=== PATIENT | female | born 2000 | race Caucasian/White ===

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

== ENCOUNTER 2023-09-21 09:10 | Outpatient (POV) | payer OTHER, BC, SELFPAY ==
--- NOTE | 2023-09-21 09:23 | A.OFFVIS_ITS ---
HPI Data of Consult Patient: new to practice Consult date: 09/21/23 Requesting Physician: Trini Vasquez APRN Primary Care Provider: Joey Lora MD Consult Narrative Reason for consult: Buttocks pain, tailbone pain History of present illness: Ms. Mandujano is a 23 year old female who is a new patient. She is a referral from Dr. Lora's office. Today she rates her pain an 8 out of 10. Patient states her pain is a constant uncomfortable sensation with occasional sharp shooting pains in and around her buttocks and tailbone area. Patient states this been going on since 2020 where she had a tubing accident in the snow. Patient states that she came down a hill and hit on her tailbone. Patient states that it hurt but did not think anything of it and went down a second time hitting the exact same spot again. Patient did have significant pain and has continued to have problems since then. Patient does state the pain interferes with her ability perform activities of daily living such as cooking and cleaning. She states it is very painful to sit and that she has tried multiple pillows for positioning and does have to change her overall position while seated due to the pain. Patient did have x-rays and advanced imaging that showed no acute fracture. Patient has been to the chiropractor with no additional relief. Patient has also been to physical therapy for pain for it and her hip. Patient states that she had a hip flexor tire and that this may aggravate some of her symptoms as well. Patient states that she did also try several visits of dry needling with no additional relief. Patient has tried [id number] Tylenol and ibuprofen along with heat and ice and topicals with minimal relief. Patient does currently use ibuprofen and ice for some improvement. Patient is interested in any help we may be able to provide.Patient has not been on any scheduled medications. Her Gray has been reviewed and is appropriate. CC: Trini Vasquez APRN [facility] Disclaimer: The information contained in this section may have been updated after the patient was seen, as this information can be updated by other users. 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 (Updated 09/21/23 @ 10:16 by Trini Vasquez APRN) Seizures Seasonal allergies Surgical History (Updated 09/21/23 @ 09:44 by Nel Jiang RN) Surgical history unknown Family History (Updated 09/21/23 @ 09:44 by Nel Jiang, RN) Other Hypertension Social History (Updated 09/21/23 @ 09:47 by Nel Jiang RN) Smoking Status: Never smoker alcohol intake: never current occupational status: student Travel in the last 8 weeks: None housing: house Review of Systems Review of Systems Review of systems:: pertinent systems reviewed and negative unless documented below Review of systems (narrative): Review of Systems: General: No recent weight changes, no fever, no sleep disturbances Respiratory: No cough, no shortness of air, no recurring pulmonary infections Cardiovascular/peripheral vascular: No chest pain, no palpitations, no edema, no shortness of breath Gastrointestinal: No new onset incontinence, normal bowel movements reported Genitourinary: No new onset incontinence Musculoskeletal: Buttocks pain, tailbone pain Psychiatric: [Normal mood/affect] Neurological: [Denies weakness in extremities], [denies balance issues] Meds Home Medications and Allergies Home Medications Medication Instructions Recorded Confirmed Type folic acid 20 mg capsule 40 mg PO DAILY Supplement 08/31/18 09/21/23 History levetiracetam 500 mg 1,000 mg PO BID seizures 05/01/21 09/21/23 History tablet,extended release 24 hr loratadine 10 mg tablet (Allergy 10 mg PO DAILY #30 tabs 05/01/21 09/21/23 Rx Relief (loratadine)) norgestimate 0.25 mg-ethinyl 1 tab PO DAILY 05/01/21 09/21/23 History estradiol 35 mcg tablet (Sprintec (28)) New Prescriptions to Start Prescriptions: Allergies Allergy/AdvReac Type Severity Reaction Status Date / Time No Known Allergies Allergy Verified 09/21/23 09:16 Objective Narrative: Physical Exam: General: Alert and oriented x3, no acute distress, pleasant and cooperative Lungs: Respirations even and unlabored, symmetrical chest expansion Eyes: PERRL Musculoskeletal: Flexion and extension of sacral [spine] somewhat guarded secondary to pain, [antalgic gait noted] point tenderness around lower sacral spine Neurological: Speech clear, no gross sensory deficit Additional findings Additional findings: MRI sacrum spine without contrast Findings: No sacral or coccygeal fracture. Marrow signal is normal. The sacral central canal and neural foramina are patent. Sacroiliac joints image normally. Visualized lower lumbar spine is unremarkable. The presacral soft tissues are unremarkable. The paraspinal musculature images normally. Assessment and Plan *Assessment and plan (1) Coccygeal pain, chronic: Status: Acute Category: Medical Code(s): M53.3 - Sacrococcygeal disorders, not elsewhere classified; G89.29 - Other chronic pain (2) Pain in buttock: Status: Acute Category: Medical Code(s): M79.18 - Myalgia, other site Plan Patient is experiencing significant pain in her buttocks and tailbone area. Patient did have an injury back in 2020 that initially resulted in this pain. Patient has tried and failed conservative therapies including oral medication, heat and ice, topicals, physical therapy and chiropractor therapy with no additional relief. I have discussed with the patient that she may benefit from a caudal epidural. Patient did have limited range of motion and tenderness along her sacral spine in the lower region. Risk and benefits were explained to the patient and she would like to proceed forward with this plan care. Patient is not on any blood thinners. I will also order the patient a compounded cream. Patient will be scheduled for a caudal epidural under fluoroscopy. Patient has been instructed to contact the clinic with any concerns before the next appointment. Dr. Romero has reviewed this note and agrees with this plan of care. This note was dictated using voice recognition software and make contain errors or omissions.
[2023-09-21 09:41] VITALS: BP 142/92; PULSE 83; RESP 18; O2SAT 98; BMI 31.3
== END 2023-09-21 23:59 ==
LOC: SC.PAIN 09:11
PROVIDERS: PCP Family Medicine; Visit Provider Nurse Practitioner Family
DX: M53.3 Sacrococcygeal disorders, not elsewhere classified (principal); G89.29 Other chronic pain; M79.18 Myalgia, other site
CPT/HCPCS: 99202; G0463

== ENCOUNTER 2023-10-16 10:43 | Outpatient (POV) | payer OTHER, BC, SELFPAY ==
[2023-10-16 10:59] VITALS: BP 93/73; PULSE 85; RESP 18; TEMP 36.6; O2SAT 98; BMI 29.0
--- NOTE | 2023-10-16 11:09 | EXP.PAIN.SOA ---
[facility] Pain Management SOAP Note Subjective:: Patient is a pleasant 23-year-old female who presents today for insurance denial. Today she rates her pain an 8 out of 10. Patient denies any new trauma or injury. Patient does states she still continues to have significant buttocks and tailbone pain. Patient describes this as a chronic aching sensation with occasional sharp shooting pains. It does interfere with her ability perform activities of daily living. Patient has tried [id number]-[id number] medications along with heat and ice and topicals with minimal relief. Her Gray has been reviewed and is appropriate. Review of Systems: General: No recent weight changes, no fever, no sleep disturbances Respiratory: No cough, no shortness of air, no recurring pulmonary infections Cardiovascular/peripheral vascular: No chest pain, no palpitations, no edema, no shortness of breath Gastrointestinal: No new onset incontinence, normal bowel movements reported Genitourinary: No new onset incontinence Musculoskeletal: Tailbone/buttocks pain Psychiatric: [Normal mood/affect] Neurological: [Denies weakness in extremities], [denies balance issues] Objective:: Physical Exam: General: Alert and oriented x3, no acute distress, pleasant and cooperative Lungs: Respirations even and unlabored, symmetrical chest expansion Eyes: PERRL Musculoskeletal: Flexion and extension of lumbar [spine] within normal limits, point tenderness along lower sacrum Neurological: Speech clear, no gross sensory deficit Assessment:: Buttocks/tailbone pain Plan:: In aboutPatient was denied the caudal epidural due to not having recent physical therapy. I will order the lisinopril low back/buttocks pain. Patient did states she has gotten her compounded cream however she has not yet gotten to try this medication. Patient will return to clinic in 1 month for reevaluation of symptoms and plan of care. Patient has been instructed to contact the clinic with any concerns before the next appointment. Dr. Romero has reviewed this note and agrees with this plan of care. This note was dictated using voice recognition software and make contain errors or omissions. [facility] Disclaimer: The information contained in this section may have been updated after the patient was seen, as this information can be updated by other users. 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 Seizures Seasonal allergies Surgical History Surgical history unknown Family History Other Hypertension Social History Smoking Status: Never smoker alcohol intake: never current occupational status: other Travel in the last 8 weeks: None housing: house
== END 2023-10-16 23:59 | disposition home or self-care (01) ==
LOC: SC.PAIN 10:44
PROVIDERS: PCP Family Medicine; Visit Provider Nurse Practitioner Family
DX: M79.18 Myalgia, other site (principal); M53.3 Sacrococcygeal disorders, not elsewhere classified
CPT/HCPCS: 99212; G0463

== ENCOUNTER 2023-12-21 08:00 | Outpatient (RCR) | payer BC, SELFPAY ==
--- NOTE | 2023-11-01 12:51 | HMH.PTOPEV ---
PT Outpatient Evaluation Rehab PT Outpatient Evaluation Start: 11/01/23 10:47 Freq: Status: Active Protocol: Document 11/01/23 10:47 CLARA (Rec: 11/01/23 11:58 CLARA [id number]) E-signed By Rachel Lafleur, PT Outpatient Therapy Subjective History Subjective History This is an initial evaluation for 23 y/o female Chaya Mandujano who presents with a referral for low back pain. Pt reports these symptoms began in 2020 after slay riding on a tube and hitting her tail bone on rock. Xray from 2020 reports not acute breaks and MRI had no findings. Pt reports she saw PT and chiropractor in 2021 but did not find relief with either. Pt denies recent . Pt reports the pain has gotten much worse since 2020 and is primarily located in her tail bone/coccyx. Pt reports the pain as a dull ache that can be sharp when in aggrevating positions ( sitting). Pt denies radiating pain or pain in hips. Pt reports minimal pain in upper sacrum. Pt reports she does have a doughnut pillow but it does not provide relief. 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 Has tried ice, heat, and icy hot with minimal relief. Pt's insurance denied an epidural d/t not having PT recently. Pt with pain management follow up November 22 . New diagnosis of cancer in past 12 No months? Chief Complaint Pain Symptom Type Ache,Sharp,Dull,Stabbing Symptoms Relieved By Rest/Positioning,OTC Meds Current Functional Limitations Lifting,Housework,Desk Work/ Reading,Driving,Sleeping, Standing,Sitting,Recreation Activity,Walking Symptom Description Constant but Variable Level of pain today (0-10) 8 Pain scale - at its best (0-10) 5 Pain scale - at its worst (0-10) 9 Lumbopelvic Eval Posture Thoracic Spine Posture Standing Position Neutral Palapation tenderness bilateral buttock tenderness Yes: 1/4 Lumbar/Sacral Palpation Overall Comment lower sacrum/coccyx 1/4 TTP Accessory Movement S1 bilateral Range of Motion Lumbar Spine Active Flexion Range of WNL, non-painful Motion (degrees) Lumbar Spine Active Extension Range of WNL, non-painful Motion (degrees) Left Lumbar Spine Lateral Flexion Active WNL, non-painful Range of Motion (degrees) Right Lumbar Spine Lateral Flexion WNL, non-painful Active Range of Motion (degrees) Manual Muscle Test Bilateral Hip Flexion Strength Grade 4 Good Hip Abduction Strength Grade 4 Good Hip Adduction Strength Grade 4 Good Hip Extension Strength Grade 4 Good Special Tests Forward Bending Test- Standing Negative Left,Negative Right Forward Bending Test- Sitting Negative Left,Negative Right Hip Piriformis Test Negative Left,Negative Right Crossed Straight Leg Raise Test Negative Left,Negative Right True Leg Length Discrepency Test Even leg length Sacroiliac Joint Compression Test Positive Left,Positive Right Sacroiliac Joint Distraction Test Positive Left,Positive Right Oswestry Index Section 1 Pain Intensity The pain is mild and does not vary much Section 2 Personal Care (Washing,Dresing) my way of washing or dressing even though it causes some pain Section 3 Lifting I can lift heavy weights, but it gives me extra pain Section 4 Walking I have some pain when walking but it does not increase with distance Section 5 Sitting Pain prevents me from sitting for more than 1/2 hour Section 6 Standing I cannot stand more than 1 hour without increasing pain Section 7 Sleeping I get pain in bed, but it does not prevent me from sleeping well Section 8 Social Life My social life is normal but increases the degree of pain Section 9 Traveling I get extra pain while traveling, but it does not compel me to seek al Section 10 Changing Degreee of Pain My pain is neither getting better or worse Score and Risk Level Oswestry Sc 16 Oswestry Risk Level Moderate Disability Outpatient Therapy Assessment Impairments Problems/Impairmments Palpation Tenderness,Impaired Strength,Impaired Standing, Impaired Sitting,Impaired Driving,Impaired Lifting, Impaired Household Care, Impaired Recreational Activities,Impaired Running, Impaired Work Activities, Subjective C/O Pain Prognosis Rehab Potential Good Clinical Impression Consistent with Diagnosis Yes Short Term Goals Number of Weeks 3 Improve Oswestry Score Yes: Improve by 3 points to improve QOL Decrease Subjective C/O Pain Yes: 24 hour pain average of 6 /10 to decrease severity Patient to be Ind w/ HEP Yes [employer] Developer Goals Number of Weeks 6 Decreased Palpation Tenderness Yes: 0/4 TTP sacrum and coccyx Increase Strength Yes: 5/5 BLE pain free MMT to improve strength Increase Ability to Sit Yes: Verbalize improved ability to sit long periods. Improve Oswestry Score Yes: Decrease to score by 6 points (mild disability) to improve QOL. Decrease Subjective C/O Pain Yes: 48 hour pain average of 4 /10 to decrease pain severity and irritability. Patient to be Ind w/ Advanced HEP Yes Outpatient Therapy Plan of Care Treatment Plan May Include Therapeutic Exercise Including Home Yes Exercise Program Manual Therapy Techniques Yes Neuromuscular Re-education Yes Therapeutic Activities to Return to Yes Previous Functional/Work Level ADL/Self Care Education Yes Mechanical Traction Yes Thermal Modalities Yes Electrical Stimulation Yes Ultrasound/Phonophoresis Yes Iontophoresis Yes Orthotics/Bracing/Splinting Yes Massage Yes Eval/Re-Eval Yes Frequency Times per week 1-2 times Duration Number of Weeks 5-6 weeks Addendums This patient is a candidate for social No or vocational rehab? Patient/Guardian verbally acknowledges Yes understanding of treatment program and consents to further treatment? Patient/Guardian verbally acknowledges Yes understanding of diagnosis, prognosis and goals for treatment? Eval Complexity PT Charges 28566 - Low Complexity Shoulder/Elbow Eval Shoulder Objective Measurements Elbow Objective Measurements PHYSICIAN CERTIFICATION: I certify the specified therapy services for Chaya Mandujano are required, authorized, and reviewed every 30 days.
--- NOTE | 2023-12-04 12:19 | HMH.RHREAS ---
Rehab Reassessment Rehab OP Re-assessment Start: 11/01/23 10:47 Freq: Status: Active Protocol: Document 12/04/23 12:09 CLARA (Rec: 12/04/23 12:18 CLARA [id number]) E-signed By Rachel Lafleur, PT Oswestry Index Section 1 Pain Intensity The pain comes and goes and is very mild Section 2 Personal Care (Washing,Dresing) change my way of washing or dressing in order to avoid pain Section 3 Lifting I can lift heavy weights, but it gives me extra pain Section 4 Walking I have some pain when walking but it does not increase with distance Section 5 Sitting I avoid sitting because it increases my pain immediately Section 6 Standing I have some pain on standing, but it does not increase with time Section 7 Sleeping Because of my pain, my normal night's sleep is less than 6 hours sleep Section 8 Social Life My social life is normal but increases the degree of pain Section 9 Traveling I get extra pain while traveling which compels me to seek alternate fo Section 10 Changing Degreee of Pain My pain is gradually getting worse Score and Risk Level Oswestry Sc 18 Oswestry Risk Level Moderate Disability Rehab Re-assessment Subjective Subjective Pt reports she feels 0% better since IE. Pt reports she is still having the same chief complaint of coccyx pain when sitting. Reports good compliance with most of HEP. Current pain 8.5/10 Objective Objective Notes Lumbar paraspinals: 1/4 TTP SIJ: 1/4 TTP Coccyx: 2/4 TTP (chief complaint) MMT: 4+/5 grossly BLE Assessment Progress Assessment No Progress Assessment Notes This is a reassessment for Chaya Mandujano who presents to PT for c/o LBP. Since IE, pt has been seen for 3 visits that have consisted of modalities prn, education, and therapeutic exercises focusing on decreasing pain and improving strength. Pt with good attendance to scheduled PT visits and reports adherence to HEP. Since IE, pt with minimal-no improvements in pain complaints. Pt still presents with impaired tolerance to sitting and verbalizes minimal relief with using doughnut pillow. Pt's progress may be limited by limited number of sessions so far. Pt to continue PT for 3-4 more visits with goal to decrease pain. Plan to d/c and refer back to MD in 2 weeks if pt still does not demo any progress with her pain complaints. Patient goals met ST/3 LTG: in progress Plan Plan Continue POC Frequency of Therapy 2x weekly Duration of therapy 2 weeks Time and Billing Re-Eval Time 10 Re-Eval Billing Units 1 PHYSICIAN CERTIFICATION: I certify the specified therapy services for Chaya Mandujano are required, authorized, and reviewed every 30 days.
== END 2023-12-21 09:10 | disposition home or self-care (01) ==
LOC: PT 08:00
PROVIDERS: Visit Provider Nurse Practitioner Family
DX: M54.50 Low back pain, unspecified (principal); M53.3 Sacrococcygeal disorders, not elsewhere classified
CPT/HCPCS: 97010; 97014; 97110; 97163; 97164; 97530; G0283

== ENCOUNTER 2023-12-23 19:24 | Emergency (ER) | payer BC, SELFPAY ==
[2023-12-23 19:30] VITALS: BP 128/78; PULSE 83; RESP 18; TEMP 36.7; O2SAT 97; BMI 32.1
--- NOTE | 2023-12-23 19:46 | ED_ITS ---
Discharge Plan Disposition Patient Disposition: Home, Self-Care Condition: Good Prescriptions Prescriptions: New amoxicillin 500 mg tablet 500 mg PO BID 10 Days Qty: 20 0RF Referrals Follow up/Referrals: Joey Lora MD [Primary Care Provider] - See instructions Activity Restrictions/Add. Instructions Additional Instructions/Restrictions: Start antibiotic as soon as possible and be sure to take as ordered for full length of time even though he should start feeling better in 24-48 hours. Tylenol or Motrin as needed for pain or fever Encourage fluids, water, Gatorade, Powerade, Pedialyte if /toddler/child Warm compresses often helps when placed over ear Return immediately for new or worsening symptoms no noticeable improvement in 48-72 hours and in 10-14 days to ensure the ears are return to baseline. Follow-up with primary care Clinical Impressions Clinical Impression: Otitis media Instructions Patient Instructions: Middle Ear Infection Discharge ED [facility] [facility] HPI General Stated complaint: ear pain Mode of Arrival: Ambulatory Source of Information: Patient Limitations: No Limitations Time Seen by Provider: 12/23/23 19:46 Description of Symptoms (Recalled from Triage Doc. by RN): PATIENT C/O FULLNESS, PAIN, AND MUFFLED HEARING TO LEFT EAR SINCE YESTERDAY HEENT Symptoms (Recalled from RN notes): Yes Resp Symptoms (Recalled from RN notes): No Skin Symptoms (Recalled from RN notes): No MS Symptoms (Recalled from RN notes): No Functional Status (Recalled from RN notes): WNL History of Present Illness Provider Complaint: 23 yr old female presents for left ear pain Related Data Previous Rx's Medication Instructions Recorded amoxicillin 500 mg tablet 500 mg PO BID 10 days #20 tabs 12/23/23 Allergies Allergy/AdvReac Type Severity Reaction Status Date / Time No Known Allergies Allergy Verified 09/21/23 09:16 Worker's Comp Is this a Worker's Comp case?: No [facility] Disclaimer: The information contained in this section may have been updated after the patient was seen, as this information can be updated by other users. 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) Smoking Status: Never smoker alcohol intake: never current occupational status: other Travel in the last 8 weeks: None housing: house ROS Obtained: Yes All systems reviewed & no additional complaints except as documented Constitutional Constitutional: Reports system reviewed and no additional complaints, except as documented Eyes Eyes: Reports system reviewed and no additional complaints, except as documented ENT Ears, Nose, Mouth, and Throat: Reports system reviewed and no additional complaints, except as documented, Reports as per HPI and Reports otalgia Cardiovascular Cardiovascular: Reports system reviewed and no additional complaints, except as documented Respiratory Respiratory: Reports system reviewed and no additional complaints, except as documented Gastrointestinal Gastrointestingal: Reports system reviewed and no additional complaints, except as documented Musculoskeletal Musculoskeletal: Reports system reviewed and no additional complaints, except as documented Integumentary/Breasts Skin/Breast: Reports system reviewed and no additional complaints, except as documented Neurologic Neurologic: Reports system reviewed and no additional complaints, except as documented Endocrine Endocrine: Reports system reviewed and no additional complaints, except as documented Hematologic/Lymphatic Henatologic/Lymphatic: Reports system reviewed and no additional complaints, except as documented Allergic/Immunologic Allergic/Immunologic: Reports system reviewed and no additional complaints, except as documented Physical Exam General General appearance: alert and in no apparent distress ENT ENT exam: Present normal oropharynx and mucous membranes moist Expanded ENT Exam TM/Canal exam: Left TM: erythema, bulging and loss of landmarks Respiratory Respiratory exam: Present normal lung sounds bilaterally Cardiovascular Cardiovascular exam: Present regular rate and normal rhythm Neurological Exam Neurological exam: Present alert and oriented X3 Skin Skin exam: Present warm and intact Medical Decision Making Medical Records Medical records reviewed: Yes I reviewed the patient's medical records. Gray Inquiry Pt receiving controlled substance: No Gray was queried for this patient: No Vital Signs: 12/23/23 19:30 Temperature 98.0 F Temperature Source Oral Pulse Rate [Left Brachial] 83 Respiratory Rate 18 Blood Pressure [Left Arm] 128/78 Blood Pressure Mean [Left Arm] 94 Blood Pressure Source [Left Arm] Automatic Cuff Blood Pressure Position [Left Arm] Sitting 02 Sat by Pulse Oximetry 97 Oxygen Delivery Method Room Air
[2023-12-23 19:52] VITALS: BP 128/78; PULSE 83; RESP 18; TEMP 36.7; O2SAT 97
[2023-12-23] MEDS: AMOXICILLIN 500MG CAPSULE 500 MG PO (19:52)
== END 2023-12-23 19:57 | disposition home or self-care (01) ==
PROVIDERS: Emergency Provider Nurse Practitioner Family; PCP Family Medicine
DX: H66.92 Otitis media, unspecified, left ear (principal); H92.02 Otalgia, left ear
CPT/HCPCS: 99204; 99212; G0463

== ENCOUNTER 2024-01-15 09:34 | Outpatient (POV) | payer BC, SELFPAY ==
[2024-01-15 09:49] VITALS: BP 145/92; PULSE 89; RESP 16; O2SAT 96; BMI 29.0
--- NOTE | 2024-01-15 09:57 | EXP.PAIN.SOA ---
[facility] Disclaimer: The information contained in this section may have been updated after the patient was seen, as this information can be updated by other users. 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 She rates her pain today a 9 out of 10. She denies any new trauma or injury. She does state that she did fully complete the physical therapy where she was going twice a day weekly for 5 weeks and feels like she still is experiencing the same pain if not worse. Patient was prescribed compounded cream and states that made no change. Pain is a constant uncomfortable sensation with sharp shooting pains in and around her buttocks and tailbone area. This has been going on since an injury from 2020 patient has tried and failed conservative therapy including chiropractor and physical therapy, oral medications, heat and ice, topicals with no change. Patient does currently use ibuprofen and ice for some improvement. Her Gray has been reviewed and is appropriate. Review of Systems: General: No recent weight changes, no fever, no sleep disturbances Respiratory: No cough, no shortness of air, no recurring pulmonary infections Cardiovascular/peripheral vascular: No chest pain, no palpitations, no edema, no shortness of breath Gastrointestinal: No new onset incontinence, normal bowel movements reported Genitourinary: No new onset incontinence Musculoskeletal: Tailbone/buttocks pain Psychiatric: [Normal mood/affect] Neurological: [Denies weakness in extremities], [denies balance issues] Pain at rest (0-10 scale): 9 Objective Objective:: Physical Exam: General: Alert and oriented x3, no acute distress, pleasant and cooperative Lungs: Respirations even and unlabored, symmetrical chest expansion Eyes: PERRL Musculoskeletal: Flexion and extension of lumbar [spine] somewhat guarded secondary to pain, [antalgic gait noted] point tenderness along lower sacrum Neurological: Speech clear, no gross sensory deficit Has patient had previous pain injection?: No Conservative treatment options previously tried: NSAIDS Length of treatment: Longer than 12 weeks, Home exercise plan Length of treatment: Longer than 12 weeks and Physical Therapy Length of treatment: Longer than 5 weeks Meds Home Medications and Allergies Home Medications ?Medication ?Instructions ?Recorded ?Confirmed ?Type No Known Home Medications 01/15/24 01/15/24 History New Prescriptions to Start Prescriptions: Allergies Allergy/AdvReac Type Severity Reaction Status Date / Time No Known Allergies Allergy Verified 09/21/23 09:16 Assessment and Plan *Assessment and plan (1) Coccygeal pain, chronic: Status: Acute Category: Medical Code(s): M53.3 - Sacrococcygeal disorders, not elsewhere classified; G89.29 - Other chronic pain (2) Pain in buttock: Status: Acute Category: Medical Code(s): M79.18 - Myalgia, other site Plan Patient is still experiencing chronic pain around her tailbone and buttocks area. Patient continues to have point tenderness along her lower sacrum during evaluation. Patient did complete physical therapy for 5 weeks with no additional improvement. She has continued to do at home stretching exercise with no change to her pain. I did discuss with the patient that she may benefit from epidural. Risk and benefits were discussed with the patient and she would like to proceed forward with this plan of care. Patient has tried and failed conservative therapy and has been dealing with this chronic pain since 2020. We will submit to insurance for the caudal epidural under fluoroscopy. Patient has been instructed to contact the clinic with any concerns before the next appointment. Dr. Romero has reviewed this note and agrees with this plan of care. This note was dictated using voice recognition software and make contain errors or omissions. All injections are used with Lidocaine or Bupivacaine and Depo Medrol.
== END 2024-01-15 23:59 | disposition home or self-care (01) ==
LOC: SC.PAIN 09:34
PROVIDERS: PCP Family Medicine; Visit Provider Nurse Practitioner Family
DX: M53.3 Sacrococcygeal disorders, not elsewhere classified (principal); G89.29 Other chronic pain; M79.18 Myalgia, other site
CPT/HCPCS: 99212; G0463

== ENCOUNTER 2024-02-22 13:26 | Outpatient (POV) | payer BC, SELFPAY ==
[2024-02-22 13:38] VITALS: BP 137/67; PULSE 73; RESP 16; O2SAT 100; BMI 29.0
--- NOTE | 2024-02-22 14:09 | EXP.PAIN.SOA ---
[facility] Disclaimer: The information contained in this section may have been updated after the patient was seen, as this information can be updated by other users. 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 Today she rates her pain an 8 out of 10. She denies any new trauma or injury. She states she still has the constant sharp shooting pains in and around her buttocks and tailbone area. This is all related to an injury from 2020. Patient has completed physical therapy with no additional improvement and continues to do at home stretching exercise. Patient has tried oral medications along with heat and ice. Her Gray has been reviewed and is appropriate. Review of Systems: General: No recent weight changes, no fever, no sleep disturbances Respiratory: No cough, no shortness of air, no recurring pulmonary infections Cardiovascular/peripheral vascular: No chest pain, no palpitations, no edema, no shortness of breath Gastrointestinal: No new onset incontinence, normal bowel movements reported Genitourinary: No new onset incontinence Musculoskeletal: Buttocks/tailbone pain Psychiatric: [Normal mood/affect] Neurological: [Denies weakness in extremities], [denies balance issues] Pain at rest (0-10 scale): 8 Objective Objective:: Physical Exam: General: Alert and oriented x3, no acute distress, pleasant and cooperative Lungs: Respirations even and unlabored, symmetrical chest expansion Eyes: PERRL Musculoskeletal: Flexion and extension of lumbar [spine] somewhat guarded secondary to pain, tenderness with palpation around sacrum Neurological: Speech clear, no gross sensory deficit Has patient had previous pain injection?: No Conservative treatment options previously tried: Home exercise plan Length of treatment: Longer than 6 weeks and Physical Therapy Length of treatment: Longer than 6 weeks Meds Home Medications and Allergies Home Medications ?Medication ?Instructions ?Recorded ?Confirmed ?Type No Known Home Medications 01/15/24 02/22/24 History New Prescriptions to Start Prescriptions: Allergies Allergy/AdvReac Type Severity Reaction Status Date / Time No Known Allergies Allergy Verified 09/21/23 09:16 Assessment and Plan *Assessment and plan (1) Pain in buttock: Status: Acute Category: Medical Code(s): M79.18 - Myalgia, other site (2) Coccygeal pain, chronic: Status: Acute Category: Medical Code(s): M53.3 - Sacrococcygeal disorders, not elsewhere classified; G89.29 - Other chronic pain Plan Patient continues to experience significant pain in and around her low back/tailbone area. Patient was denied injection due to not having updated imaging. I will order x-ray of her lumbar and sacral spine with MRI without contrast to follow. Patient does state that her insurance has been having her pay for her physical therapy and she is wondering about the cost of the imaging. I have discussed with the patient at length that it may be beneficial to have her imaging done at [facility]. Patient would like to proceed forward with this plan of care. Patient will return to clinic in 1 month for reevaluation of symptoms and plan of care. Patient has been instructed to contact the clinic with any concerns before the next appointment. Dr. Romero has reviewed this note and agrees with this plan of care. This note was dictated using voice recognition software and make contain errors or omissions. All injections are used with Lidocaine or Bupivacaine and Depo Medrol.
== END 2024-02-22 23:59 | disposition home or self-care (01) ==
LOC: SC.PAIN 13:27
PROVIDERS: PCP Family Medicine; Visit Provider Nurse Practitioner Family
DX: M79.18 Myalgia, other site (principal); M53.3 Sacrococcygeal disorders, not elsewhere classified; G89.29 Other chronic pain
CPT/HCPCS: 99212; G0463

== ENCOUNTER 2024-03-03 12:18 | Emergency (ER) | payer BC, SELFPAY ==
[2024-03-03 12:23] VITALS: BP 138/93; PULSE 77; RESP 16; TEMP 36.7; O2SAT 100; BMI 28.2
--- NOTE | 2024-03-03 15:17 | XR_ITS ---
PROCEDURE INFORMATION: Exam: XR Chest Exam date and time: 03/03/2024 3:29 PM Age: 23 years old Clinical indication: Other: Palpitations, presyncope TECHNIQUE: Imaging protocol: Radiologic exam of the chest. Views: 2 views. COMPARISON: CR XR CHEST 2V 03/03/2024 3:29 PM FINDINGS: Lungs: Unremarkable. No consolidation. Pleural spaces: Unremarkable. No pleural effusion. No pneumothorax. Heart/Mediastinum: Unremarkable. No cardiomegaly. Bones/joints: Unremarkable. IMPRESSION: No acute findings.
--- NOTE | 2024-03-03 15:18 | HMH.EDGENADL ---
Discharge Plan Disposition Patient Disposition: Home, Self-Care Condition: Good Prescriptions Prescriptions: No Action No Known Home Medications Referrals Follow up/Referrals: Joey Lora MD [Primary Care Provider] - See instructions Activity Restrictions/Add. Instructions Additional Instructions/Restrictions: You were evaluated in the emergency department today. At this time, your labs, x-ray, and EKG are reassuring except that your T4 or thyroid hormone level is slightly elevated. Your TSH or thyroid-stimulating hormone is normal, so for this I just recommend close follow-up and repeat with your primary care provider. Make sure that you stay hydrated. Return to the emergency department for new or worsening symptoms Clinical Impressions Clinical Impression: Heart palpitations, Elevated serum free T4 level Stand Alone Forms Stand Alone Forms: Work/School Release Instructions Patient Instructions: DI for Palpitations Print Language Print Language: Guatemalan Discharge ED Provider: Trini Little General Adult HPI General Chief complaint: Arrhythmia/Palpitations Stated complaint: elevated heart rate Time Seen by Provider: 03/03/24 15:10 Mode of Arrival: Ambulatory Source of Information: Patient Limitations: No Limitations Description of Symptoms (Recalled from ER Triage Doc. by RN): Reports increases in her heartrate. States she was at [employer] this morning when she became hot and sweaty and she noticed that her heart rate went from 70 to 120. History of Present Illness HPI narrative: This patient is a 23-year-old female who reports history of epilepsy and low vitamin B12 presenting to the emergency department for evaluation concern for palpitations and fluctuations in her heart rate. She states she has had fatigue for about 4 days now but today when she was at [employer], she noted that her heart rate would be going from 70-1 20 without triggers such as exercise or activity. She states that she also started feeling really hot and would get tunnel vision when this would happen. She would feel lightheaded. She denies any recent headache, persistent vision changes, numbness, tingling, chest pain, shortness of breath, cough, congestion, abdominal pain, vomiting, changes in bowel movements, urinary symptoms, or other concerns. She is currently on control. Related Data Home Medications ?Medication ?Instructions ?Recorded ?Confirmed No Known Home Medications 01/15/24 02/22/24 Allergies Allergy/AdvReac Type Severity Reaction Status Date / Time No Known Allergies Allergy Verified 09/21/23 09:16 [facility] Disclaimer: The information contained in this section may have been updated after the patient was seen, as this information can be updated by other users. 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 Seizures Seasonal allergies Surgical History Surgical history unknown Family History Other Hypertension Social History Smoking Status: Never smoker alcohol intake: never current occupational status: other Travel in the last 8 weeks: None housing: house ROS Obtained: Yes All systems reviewed & no additional complaints except as documented Physical Exam General General appearance: alert and in no apparent distress Head Head exam: atraumatic and normocephalic Eye Eye exam: Present normal appearance, PERRL and EOMI ENT ENT exam: Present normal exam, normal oropharynx, mucous membranes moist and normal external ear exam Neck Neck exam: Present normal inspection, full ROM and trachea midline; Absent tenderness Chest Chest inspection: Present normal inspection and symmetric chest wall rise; Absent tenderness Respiratory Respiratory exam: Present normal lung sounds bilaterally; Absent respiratory distress, wheezes, stridor or accessory muscle use Cardiovascular Cardiovascular exam: Present regular rate and normal rhythm Abdominal Exam Abdominal exam: Present soft; Absent distention, tenderness or guarding Extremities Exam Extremities exam: Present normal inspection, full ROM and normal capillary refill; Absent tenderness or edema Back Exam Back exam: Present normal inspection and full ROM; Absent tenderness Neurological Exam Neurological exam: Present alert, oriented X3, CN II-XII intact and normal gait; Absent motor sensory deficit Psychiatric Psychiatric exam: Present normal affect and normal mood Skin Skin exam: Present warm and dry Medical Decision Making Medical Records Medical records reviewed: Yes I reviewed the patient's medical records. Screening: Per USPSTF and CDC recommendations, given the prevalence of disease in our region, it is our hospital?s policy to screen for HIV and viral Hepatitis for all patients aged 18 and over and those with ongoing risk factors. Gray Inquiry Pt receiving controlled substance: No Vital Signs: 03/03/24 12:23 03/03/24 17:37 Temperature 98.0 F 98.0 F Temperature Source Oral Oral Pulse Rate 80 Pulse Rate [Radial] 77 Respiratory Rate 16 18 Blood Pressure 113/78 Blood Pressure [Right Arm] 138/93 H Blood Pressure Mean [Right Arm] 108 Blood Pressure Source [Right Arm] Automatic Cuff Blood Pressure Position [Right Arm] Sitting 02 Sat by Pulse Oximetry 100 Oxygen Delivery Method Room Air Room Air Lab Data Lab results reviewed: Yes I reviewed the patient's lab results. Lab Results 03/03/24 15:33: WBC 8.9, RBC 4.34, Hgb 13.6, Hct 43.3, MCV 99.7 H, MCH 31.2, MCHC 31.3 L, RDW 13.3, Plt Count 325, MPV 7.2 L, Neut % (Auto) 57.5, Lymph % (Auto) 36.0, [place] % (Auto) 4.5, Eos % (Auto) 1.1, Baso % (Auto) 0.8, Neut # (Auto) 5.1, Lymph # (Auto) 3.2, [place] # (Auto) 0.4, Eos # (Auto) 0.1, Baso # (Auto) 0.1, D-Dimer < 0.25, Sodium 137, Potassium 3.9, Chloride 102, Carbon Dioxide 28, Anion Gap 10.9, BUN 11, Creatinine 0.70, Estimated Creat Clear 159, Estimated GFR 106, Est GFR ( Amer) 128, Glucose 89, Calcium 9.9, Magnesium 1.9, Total Bilirubin 0.6, AST 29, ALT 20, Alkaline Phosphatase 72, Total Protein 8.4 H, Albumin 4.7, Globulin 3.7 H, Albumin/Globulin Ratio 1.3, TSH 0.85, Thyroxine (T4) 16.5 H, Serum HCG, Qual Negative 03/03/24 15:33 03/03/24 15:33 Orders (Tests/Meds): ED MEDICATIONS Discontinued Medications Generic Name Dose Route Start Last Admin Trade Name Freq PRN Reason Stop Dose Admin Lactated Ringer's 1,000 mls @ 999 mls/hr 03/03/24 15:20 03/03/24 15:43 Lactated Ringer's 1000 Ml Bag IV 03/03/24 16:20 999 mls/hr .Q1H1M ONE Administration ORDERS Category Date Time Status CXR 2 view (NOT portable) [XR chest 2V] Stat Exams 03/03/24 15:17 Completed CBC w/Auto Diff [Complete Blood Count Auto Diff] Stat Lab 03/03/24 15:33 Completed CMP [Comprehensive Metabolic Panel] Stat Lab 03/03/24 15:33 Completed D-Dimer Stat Lab 03/03/24 15:33 Completed MAG [Magnesium] Stat Lab 03/03/24 15:33 Completed Serum [HCG Qualitative, Serum] Stat Lab 03/03/24 15:33 Completed T4 (Thyroxine) Stat Lab 03/03/24 15:33 Completed TSH [Thyroid Stimulating Hormone] Stat Lab 03/03/24 15:33 Completed ECG Data Tracing #1: I reviewed this ECG and interpreted as documented below: Normal sinus rhythm with a ventricular of 87 bpm. Mild right ventricular conduction delay. Nonspecific T wave abnormality without acute ST changes concerning for ischemia. ECG initial impression date: 03/03/24 ECG initial impression time: 15:36 Medical Decision Narrative: In summary, this patient is a 23-year-old female presenting to the Emergency Department for evaluation of palpitations and fluctuations in heart rate. Differential diagnoses considered include but are not limited to dehydration, electrolyte derangements, anxiety, PE, dysrhythmia. Ruling out the most morbid conditions drove assessment. It should be noted patient's history includes epilepsy which is reportedly at goal therapy. This complicates all aspects of care by increasing patient's risk for morbidity. On exam, the patient is sitting upright in chair in no acute distress with normal vital signs on cardiac telemetry. Heart rate is currently 70-80. Given that she is on control, cannot use PERC criteria to exclude PE. Workup included CBC, CMP, TSH, T4, magnesium, test, D-dimer, chest x-ray, EKG. She was given a bolus of IV fluids. I independently interpreted chest x-ray prior to the radiologist read and noted no acute focal consolidation or pneumothorax. Please see their read for final interpretation. Labs were obtained that demonstrated mildly elevated T4 but no abnormalities in TSH. D-dimer is negative, EKG is reassuring, and there is no other acutely concerning abnormalities on lab. On reassessment, the patient is resting comfortably. Vitals are normal on cardiac telemetry. She is ambulatory to the bathroom without issue. Ultimately, I feel that we have excluded acute life-threatening pathology as a cause of her symptoms and I feel that she is appropriate for discharge home with close follow-up with her primary care provider. I notified her of her thyroid study abnormalities and advised that she follow-up for recheck of this with her primary care provider. She was given strict return precautions and was discharged in stable condition after all questions were answered Critical Care Critical Care Time Critical Care Time: No
--- NOTE | 2024-03-03 15:35 | ECG_ITS ---
APPROVED REPORT Exam: Resting ECG HR:87 bpm ECG Measurements Heart Rate 87 AXES [place] 163 P 72 QRSd 92 QRS 87 QT 361 T 51 QTc 405 Conclusion SINUS RHYTHM POSSIBLE RIGHT VENTRICULAR CONDUCTION DELAY [RSR (QR) IN V1/V2] NONSPECIFIC T-WAVE ABNORMALITY BORDERLINE ECG Electronically signed by : DANITA COLE, 03/04/2024 23:38:31
[2024-03-03] MEDS: LACTATED RINGERS 1000ML 1,000 ML 999 ML IV (15:43)
[2024-03-03 15:53] LABS: Basophils # 0.1 K/mm3 (0-0.2); Basophils % 0.8 % (0.1-2.0); Eosinophils # 0.1 K/mm3 (0.0-0.4); Eosinophils % 1.1 % (0.1-12.0); Hematocrit 43.3 % (37.0-47.0); Hemoglobin 13.6 g/dL (12.2-16.2); Lymphocytes # 3.2 K/mm3 (0.7-4.5); Mean Corpuscular HGB Conc 31.3 g/dL (31.8-35.4); Mean Corpuscular Hemoglobin 31.2 pg (27.0-31.2); Mean Corpuscular Volume 99.7 fl (81-99); Mean Platelet Volume 7.2 fl (7.4-10.4); Monocytes # 0.4 K/mm3 (0.1-1.0); Monocytes % 4.5 % (1.7-9.3); Neutrophils # 5.1 K/mm3 (1.8-7.8); Neutrophils % 57.5 % (37.0-80.0); Platelet Count 325 K/mm3 (142-424); Red Blood Count 4.34 M/mm3 (4.20-5.40); Red Cell Distribution Width 13.3 % (11.5-17.5); White Blood Count 8.9 K/mm3 (4.8-10.8)
[2024-03-03 15:58] LABS: Albumin/Globulin Ratio 1.3 (1.1-1.8); Creatinine Clearance Estimated 159 mL/min (50-200); Estimated Glomerular Filt Rate 106 ml/min (>60); GFR (African American) 128 ML/MIN (>60)
[2024-03-03 16:14] LABS: HCG Qualitative, Serum Negative (Negative)
[2024-03-03 16:51] LABS: Albumin Level 4.7 g/dl (3.5-5.0); Chloride 102 mmol/L (98-107); Potassium 3.9 mmoL/L (3.5-5.1); Sodium 137 mmol/L (136-145)
[2024-03-03 16:54] LABS: Alanine Aminotransferase 20 U/L (12-78); Alkaline Phosphatase 72 U/L (38-126); Anion Gap 10.9 mEq/L (5-15); Aspartate Amino Transferase 29 U/L (14-36); Bilirubin,Total 0.6 mg/dl (0.2-1.3); Blood Urea Nitrogen 11 mg/dl (7-17); Calcium 9.9 mg/dl (8.4-10.2); Carbon Dioxide 28 mmol/L (22.0-30.0); Globulin 3.7 g/dL (1.3-3.2); Glucose 89 mg/dl (74-100); Magnesium 1.9 mg/dl (1.6-2.3); Total Protein,Serum 8.4 g/dl (6.3-8.2)
[2024-03-03 16:56] LABS: D-Dimer < 0.25 ug/mL (0.0-0.5)
[2024-03-03 17:12] LABS: T4 (Thyroxine) 16.5 ug/dl (5.53-11.0)
[2024-03-03 17:25] LABS: Thyroid Stimulating Hormone 0.85 uIU/mL (0.465-4.68)
[2024-03-03 17:37] VITALS: BP 113/78; PULSE 80; RESP 18; TEMP 36.7; O2SAT 98
== END 2024-03-03 17:45 | disposition home or self-care (01) ==
PROVIDERS: Emergency Provider Emergency Medicine; PCP Family Medicine
DX: R00.2 Palpitations (principal); R53.83 Other fatigue; R42 Dizziness and giddiness; R61 Generalized hyperhidrosis; G40.909 Epilepsy, unspecified, not intractable, without status epilepticus; I45.9 Conduction disorder, unspecified
CPT/HCPCS: 71046; 80050; 80053; 83735; 84436; 84443; 84703; 85025; 85378; 93005; 96360; 99285; J7120

== ENCOUNTER 2024-03-06 10:16 | Outpatient (CLI) | payer BC, SELFPAY ==
--- NOTE | 2024-03-06 10:23 | US_ITS ---
FINAL REPORT CLINICAL HISTORY: HYPOTHYROIDISM COMPARISON: None FINDINGS: THYROID ULTRASOUND: The right thyroid gland has a volume of 4.1 mL, which is mildly atrophic. The right thyroid gland has a coarsened echotexture consistent with chronic thyroiditis. There are several small less than 6 mm in diameter colloid cysts present. The left thyroid gland has a volume of 4 mL, also mildly atrophic. The left thyroid gland has a coarsened echotexture consistent with chronic thyroiditis. There are several small less than 6 mm in diameter colloid cysts present The isthmus of the thyroid measures 2.5 mm in thickness. IMPRESSION: Mildly atrophic and coarse thyroid gland as described above, consistent with chronic thyroiditis. Multiple small less than 6 mm in size colloid cysts are present. Reviewed, Interpreted and Dictated by John Garcia MD Transcribed by Susanna Gaxiola Authenticated and [facility]
== END 2024-03-06 23:59 | disposition home or self-care (01) ==
PROVIDERS: PCP Family Medicine; Visit Provider Family Medicine
DX: E05.90 Thyrotoxicosis, unspecified without thyrotoxic crisis or storm (principal)
CPT/HCPCS: 76536

== ENCOUNTER 2024-03-27 15:34 | Outpatient (POV) | payer BC, SELFPAY ==
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
[2024-03-27 16:00] VITALS: BP 132/76; PULSE 72; RESP 16; O2SAT 100; BMI 31.3
== END 2024-03-27 23:59 | disposition home or self-care (01) ==
LOC: SC.PAIN 15:36
PROVIDERS: PCP Family Medicine; Visit Provider Nurse Practitioner Family
DX: M79.18 Myalgia, other site (principal); M53.3 Sacrococcygeal disorders, not elsewhere classified; G89.29 Other chronic pain; Z73.89 Other problems related to life management difficulty
CPT/HCPCS: 99212; G0463

== ENCOUNTER 2024-04-02 15:28 | Emergency (ER) | payer BC, SELFPAY ==
[2024-04-02 15:45] VITALS: BP 120/77; PULSE 79; RESP 18; TEMP 37.1; O2SAT 100; BMI 31.5
[2024-04-02] MEDS: FLU VACC TS2024-25(6MOS UP)/PF 45 MCG/0.5 ML SYRINGE IM (15:48)
[2024-04-02 15:57] VITALS: BP 120/77; PULSE 79; RESP 18; TEMP 37.1; O2SAT 100
== END 2024-04-02 16:00 | disposition home or self-care (01) ==
LOC: UTC 15:35
PROVIDERS: Emergency Provider Nurse Practitioner; PCP Family Medicine
DX: Z23 Encounter for immunization (principal)
CPT/HCPCS: 90471; 90653; 90686

== ENCOUNTER 2024-09-26 15:32 | Outpatient (CLI) | payer BC, SELFPAY ==
--- NOTE | 2024-09-26 15:35 | US_ITS ---
FINAL REPORT TECHNIQUE: Sonographic images of the thyroid were obtained. CLINICAL HISTORY: CHRONIC THYROIDITIS/THYROMEGALY COMPARISON: 03/06/2024 FINDINGS: There is diffusely heterogeneous parenchyma, may be related to thyroiditis. There are multitude of small predominantly anechoic structures bilaterally, largest measures up to 6 mm on the left. These appear to be stable and are favored to represent colloid cysts. 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 No follow-up is recommended. Reviewed, Interpreted and Dictated by Faisal Butterfield MD Transcribed by [facility] Avila Authenticated and [facility]
== END 2024-09-26 23:59 | disposition home or self-care (01) ==
LOC: RAD 15:32
PROVIDERS: PCP Family Medicine; Visit Provider Family Medicine
DX: E06.5 Other chronic thyroiditis (principal); E01.0 Iodine-deficiency related diffuse (endemic) goiter
CPT/HCPCS: 76536

== ENCOUNTER 2025-01-23 15:52 | Outpatient (POV) | payer BC, SELFPAY ==
--- OUTSIDE RECORDS SUMMARY | 2024-09-26 07:00 | XMS_ITS ---
Author Organization [facility] Address [address] [place] [id number] Care Team Providers Care Administrative Resident Name Role Phone Joey Lora Primary Care Provider Tammy Kelley Eladio Unavailable [phone] REASON FOR VISIT visual disturbance, headache, does still have cough Encounters Encounter Location Date Provider Diagnosis [facility] [address] [facility] [address] [place] [id number] 09/26/2024 Joey Lora Plan Of Treatment No Information Progress Notes * TIANA ESPINOB:2000 ( 24 yo F)Acc No.hhhhhhhhhhhhDOS:09/26/2024 Progress Notes Patient: TIANA WEAVER Account Number:[id number] Provider: Popeye Lora M.D. :2000 A ge:24 Y S ex:Female Date:09/26/2024 Address:[address] [id number] Subjective: * Chief Complaints: * 1 . Visual disturbance, headache, does still have cough. * 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: Objective: * Vitals: Assessment: Plan: * Treatment: * Images: Billing Information: * Visit Code: * Procedure Codes: * Electronic signature of Nimo Lora MD on 01/23/2025 at 03:56 PM EDT Sign off status: Pending * Provider: Popeye Lora M.D. Date: 0 09/26/2024 Generated for Ceci banks/Nancy/Emily on: 0 01/23/2025 03:56 PM EDT
--- OUTSIDE RECORDS SUMMARY | 2024-10-30 12:15 | XMS_ITS ---
Author Organization [facility] Address [address] [place] [id number] Care Team Providers Care Animal Hospital Clerk Name Role Phone Joey Lora Primary Care Provider Tammy Kelley Unavailable [phone] Lanny Whitehead Unavailable [phone] Allergies Allergen (clinical drug ingredient) Drug/Non Drug [...] MG as directed Orally Active Vital Signs Blood pressure systolic 112 mm Hg 10/31/19 25 Blood pressure diastolic 64 mm Hg 025 Heart Rate 67 /min 10/30/2024 Height 67.25 in 10/30/2024 Weight 208.4 lbs 10/30/2024 BMI 32.39 kg/m2 10/30/2024 Encounters Encounter Location Date Provider Diagnosis [facility] [facility] [address], [place] [phone] 10/30/2024 Lanny Whitehead Acute URI J06.9 Assessments [...] Next Appt Details Follow Up: prn, Reason: Progress Notes * ESPINOTIANAB:2000 ( 24 yo F)Acc No.hhhhhhhhhhhhDOS:10/30/2024 Progress Notes Patient: TIANA WEAVER Account Number:[id number] Provider: MARY Do :2000 A ge:24 Y S ex:Female Date:10/30/2024 Address:[address] [place] [address], [place], [id number] Pcp:Joey Lora Subjective: * Chief Complaints: * [...] LT Foot Tendon Tear- Sports Medicine 03/21/2017, [facility] - Extreme Fatigue 03/03/2024. * Family [...] Procedure Codes: 3 6416 CAPILLARY BLOOD DRAW, 00917 CBC WITH AUTO DIFF * Follow Up: p rn * Images: Billing Information: * Visit Code: 31335 Office Visit, Est Pt., Level 3. * Procedure Codes: 17988 CAPILLARY BLOOD DRAW. 36515 CBC WITH AUTO DIFF. * Electronic signature of MARY Solitario on 01/23/2025 at 03:56 PM EDT Sign off status: Pending * Provider: MARY Do Date: 0 10/30/2024 Generated for Ceci banks/Nancy/eTransmitting on: 0 01/23/2025 03:56 PM EDT History and Physical Notes * HPI (History [...]
--- OUTSIDE RECORDS SUMMARY | 2024-12-19 12:30 | XMS_ITS | Encounter Summary ---
Author Organization [facility] ([place], [place], [place], [place]) Address [address] [place] [address] Care Team Providers Care Piped Buttonhole Machine Operator Name Role Phone Joey Lora MD Primary Care Provider + [phone] Reason for Referral * Cardiac Rehabilitation (Routine) - Closed Specialty Diagnoses / Procedures Referred By Contac t Referred To Contact Diagnoses Syncope Procedures Tilt table Provider, Not In System [place] Francisco J Roldan MD [address] [place] [address] Phone: tel: fax: Referral ID Status Reason Start Date Expiration Date Visits Re quested Visits Authorized [id number] Closed 10/24/2024 10/24/2025 1 1 Reason for Visit * Cardiac Rehabilitation (Routine) - Closed Specialty Diagnoses / Procedures Referred By Ector lozano Referred To Contact Diagnoses Syncope Procedures Tilt table Provider, Not In System Francisco J Palacios MD [address] [place] [address] [place] [address] Phone: tel: fax: Referral ID Status Reason Start Date Expiration Date Visits Re quested Visits Authorized [id number] Closed 10/24/2024 10/24/2025 1 1 Encounter Details Date Type Department Care Team (Late st Contact Info) Description 12/19/2024 12:30 PM EDT - 12/19/2024 11:59 PM EDT Hospital Encounter [facility] Procedure Lab [address] [place] [address] Marie Steinberg MD [address] [place] [address] Syncope Discharge Disposition: Home or Self Care Social History Tobacco Use Types Packs/Day Years Used Date Smoking Tobacco: Never Smokeless Tobacco: Never Tobacco Cessation:Counseling Given: Not Answered Alcohol Use Standard Drinks/Week Comments Not Currently 0 (1 standard drink = 0.6 oz pur e alcohol) Comments Unknown Sex and Gender Information Value Date Recorded Sex Assigned at Not on file Legal Sex Female 9:14 AM CDT Gender Identity Not on file Sexual Orientation Not on file documented as of this encounter Last Filed Vital Signs Vital Sign Reading Time Taken Comments Blood Pressure 126/84 12/19/2024 12:51 PM EDT Pulse 80 12/19/2024 12:51 PM EDT Temperature 36.6 C (97.8 F) 12/19/2024 12:51 PM EDT Respiratory Rate 18 12/19/2024 12:51 PM EDT Oxygen Saturation 99% 12/19/2024 12:51 PM EDT Inhaled Oxygen Concentration - - Weight 90.7 kg (200 lb) 12/19/2024 12:56 PM EDT Height 167.6 cm (5' 6 ) 12/19/2024 12:56 PM EDT Body Mass Index 32.28 12/19/2024 12:56 PM EDT documented in this encounter Medications at Time of Discharge b complex vitamins tablet Take 1 tablet by mouth daily. norgestimate-ethi nyl estradioL (ORTHO-CYCLEN) 0.25-0.035 mg per tablet TAKE 1 TABLET BY MOUTH DAILY; Duration: 84 pediatric gaugxryy-bddh-gej (flintstones complete) chew Take by mouth. levETIRAcetam XR (KEPPRA XR) 750 mg Tb24 Take 2 tablets (1,500 mg total) by mouth daily. 10/05/2024 01/03/2025 documented as of this encounter Plan of Treatment Not on file documented as of this encounter Procedures Procedure Name Priority Date/Time Associated Diagnosis Comments TILT TABLE Routine 12/19/2024 2:55 PM EDT Syncope documented in this encounter Results * Tilt table (12/19/2024 2:55 PM EDT) Anatomical Region Laterality Modality Vascular Ultraso und Narrative 12/19/2024 7:28 PM EDT TILT TABLE TESTING INDICATION Syncope REFERRING PROVIDER Joey Lora MD PROCEDURE Standard tilt table testing. Nitroglycerin provocation was not required FINDINGS The systolic blood pressure decreased from 127 mmHg to as low as 74 mmHg briefly 18 minutes into the study and quickly increased back to 112 mmHg. The heart rate initially increased from 64 bpm to as high as 104 bpm but decelerated down to 39 bpm 17 minutes into the study and eventually increased back to 60 bpm. The patient experienced lightheadedness, tunnel vision, and transient loss of consciousness for 30 to 40 seconds. IMPRESSION Positive tilt table study for both vasodepressive and cardioinhibitory response. us Not In System Provider [facility] ORDER ANTONIETA Final Result documented in this encounter Visit Diagnoses Diagnosis Syncope Syncope and collapse documented in this encounter Care Teams Piped Buttonhole Machine Operator Relationship Specialty Start Date End Date Joey Lora MD [address] [place] [facility] [address] [place] [phone] PCP - General Family Medicine 12/19/24 documented as of this encounter
--- OUTSIDE RECORDS SUMMARY | 2025-01-02 09:00 | XMS_ITS | Encounter Summary ---
Author Organization [facility] Address [address] [place] [address] Care Team Providers Care Draw Bench Operator Helper Name Role Phone Joey Lora MD Primary Care Provider [phone] Reason for Referral * Consultation (Routine) - Authorized Specialty Diagnoses / Procedures Referred By Ector lozano Referred To Contact Cardiology Diagnoses Hypotension, unspecified hypotension type Aortopulmonary window Marie Steinberg MD [address] [address] Phone: tel: fax: Referral ID Status Reason Start Date Expiration Date Visits Requested Visits Authorized [id number] Authorized Specialty Services Required 01/02/2025 07/04/2026 1 1 Scheduling Instructions Patient with history of aortopulmonary window (former patient of Dr. Muro) now with syncope/presyncope. I sent her for tilt table test at [facility] and tilt table test was positive for both vasodepressive and cardioinhibitory response. Requesting Cardiology evaluation. Reason for Visit * Consultation (Routine) - Closed Specialty Diagnoses / Procedures Referred By Ector lozano Referred To Contact Neurology Diagnoses Seizure (CMS/HCC) POTS (postural orthostatic tachycardia syndrome) Syncope, unspecified syncope type Austin Harley, LOCKSMITH [address] [facility] [address] [place] [address] Phone: tel: fax: [facility] [address] [place] [address] Phone: tel: fax: Referral ID Status Reason Start Date Expiration Date V isits Requested Visits Authorized [id number] Closed Specialty Services Required 10/04/2024 04/05/2026 1 1 Encounter Details Date Type Department Care Team (Latest Contact Info) Description 01/02/2025 9:00 AM EDT Office Visit [place] [facility] [address] [place] [address] Marie Steinberg MD [address] [place] [address] Nonintractable focal epilepsy (CMS/HCC) (Primary Dx); Hypotension, unspecified hypotension type; Aortopulmonary window Social History Tobacco Use Types Packs/Day Years Used Date Smoking Tobacco: Never Smokeless Tobacco: Never Alcohol Use Standard Drinks/Week Comments Not Currently 0 (1 standard drink = 0.6 oz pur e alcohol) PHQ-2 Answer Date Recorded Patient Health Questionnaire-2 Score 0 03/18/2024 Comments Unknown Sex and Gender Information Value Date Recorded Sex Assigned at Not on file Legal Sex Female 8:25 PM EDT Gender Identity Not on file Sexual Orientation Not on file documented as of this encounter Miscellaneous Notes * Progress Notes - Marie Steinberg MD - 01/02/2025 9:00 AM EDT Subjective Chaya Mandujano presents to the [facility] as a returning patient today with/for epilepsy. Telehealth Statement Patient Verification Patient identity has been confirmed using name and date of ? Yes Authorizations and Agreements/Telemedicine Consent sent and consent confirmed? Yes Patient Location: Home/Other Patient confirms they are physically located in [place]? Yes If the patient is not physically located in [place], the provider has confirmed with [facility] thatthe provider is authorized to provide services in patient's stated location? N/A Provider Location: [facility] facility Audio and video or audio only? 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 She is with her mother. I initially saw her on 03/18/2024. Since that visit, she was admitted to the EMU 10/03/2024-10/05/2024. cvEEG revealed rare sleep-activated bilateral frontopolar spikes and rare intermittent bihemispheric theta slowing during wakefulness. The findings are consistent by focal cortical hyperexcitability and increased risk of seizures over the bilateral frontopolar regions, as well as mild bihemispheric cortical dysfunction. She had noseizures during that EMU admission. She has not had any seizures since she was discharged from the EMU. Her last seizure remains August 2013. She continues to take Levetiracetam XR 1500mg po daily (increased during EMU admission due to interictal activity on EEG). She denies any missed doses. She denies any acute illnesses. She is driving. She denies tobacco, EtOH or illicit drug use. 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 She is on hormonal contraception with norgestimate-eth estradiol pill 1 tablet nightly. She also takes folic acid 400mcg po at bedtime (obtains it OTC). Additionally, during EMU admission in September 2024 she had orthostatic blood pressure and heart rate measurements were concerning for POTS. I instructed her to use compression stocking during the day (she said she only wears them at night) and encouraged adequate water intake (she drinks at least two-32 oz bottles of water). She drinks 2-3 cups of coffee per week. She drinks 2-3-16 oz bottles of Coke Zero or Pepsi Zero per week. She said she has occasional episodes where she feels like she is going to pass out - tunnel vision, sweating, heart racing, and sits down before passing out. She had a tilt table test performed at [facility] on 12/19/2024. The tilt table test was positive for both vasodepressive and cardioinhibitory response (see results in Media tab). She was subsequently scheduled with a registered dental hygienist at [facility] but the appointment is not until April. She wishes to see a Temporary Data Entry Clerk at for a sooner appointment. Of note, she has a history of aortopulmonary window (her mother told me today) and was a patient of Dr. Muro when she was a child. Regarding her thyroid cyst, she has an upcoming appointment with Endocrinology in January. SEIZURE HISTORY: Age of onset: 1.5 years old (August 2013) Seizure Semiology #1 Aura: Unknown Ictal: Head turning to left., loss of consciousness, secondary generalized tonic-clonic seizure Post ictal: Sleepy/drowsy Duration: Cannot remember Frequency: One time Last Seizure: August 2013 (mother attributes this to being on ASM) Triggers: Possible illness (mom recalled patient was feeling sick that morning before the seizure and she kept her home from daycare) Seizure Semiology #2 Aura: Remembers feeling hot and dizzy prior to one of these seizures (3rd grade) Ictal: Unresponsive, stares off, lose color/lips bluish Post ictal: Tired, confused Duration: 30 seconds or less Frequency: Rare now (but mother said these were very frequent in her formative years) Last Seizure: None since 3rd grade Triggers: Unknown Seizure risk factors: History: Born 37 weeks, spontaneous vaginal delivery, mother said that she was unable to holdJenna immediately because of low temperature, but Chaya did not require NICU stay Developmental History: Normal language and motor development until first seizure. There was some delay after (? Heavily medicated ) so she repeated kindergarten. She was diagnosed with ADHD History of febrile seizures: No WOOD MACHINIST infections: No Head trauma: No History of stroke: No Brain lesions: T2/FLAIR signal abnormality involving the right temporal lobe, may represent mesial temporal sclerosis or sequala of prior infection. Subtle signal abnormality in the anterior-inferiorright temporal lobe, concerning for focal cortical dysplasia in the anterior inferior right temporal lobe History of Malignancy: No Psychiatric History: No diagnosis, but patient says she has anxiety regarding her epilepsy. Had ADHD as a child (stopped medication in 8th grade) Family History of Epilepsy: Not that she is aware of Family Psychiatric History: Father has bipolar disorder, as well as several paternal relatives Other: She is currently a college student (sandeep) [employer] (online). She is studying education. 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 Lives in [place] with her mother, stepfather, and younger maternal half sister. She denies tobacco, alcoholor illicit drugs. She drives. Current AEDs: Levetiracetam XR 1500mg po at bedtime (Also on folic acid 400mcg po daily and hormonal contraception) Prior AEDs and Reason(s) for Discontinuation: Prior Seizure Work-Up: EE07/18/2022 routine vEEG - Normal sleep-deprived awake, drowsy and asleep study (51 minutes) EE02/08/16: Normal routine awake, drowsy and asleep EMU 10/03/2024-10/05/2024 - Rare sleep-activated bilateral frontopolar spikes and rare intermittent bihemispheric theta slowing during wakefulness. The findings are consistent by focal cortical hyperexcitability and increased risk of seizures over the bilateral frontopolar regions, as well as mild bihemispheric cortical dysfunction. MRI brain wo 08/18/2022 ([facility], report only) - T2/FLAIR signal abnormality involving the right temporal lobe, may represent mesial temporal sclerosis or sequala of prior infection. Subtle signal abnormality in the anterior-inferior right temporal lobe MRI brain w/o 02/08/2016 - [facility], report only - Concern for right temporal mesial temporal sclerosis and right anterior inferior lobe focal cortical dysplasia fMRI brain: None PET-CT: None Neuropsychological Evaluation: None Past 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[1] Family History[2] Surgical History[3] Social History Tobacco Use Smoking status: Never Smokeless tobacco: Never Substance Use Topics Alcohol use: Not Currently Medications Ordered Prior to Encounter[4] Allergies[5] All medications have been reviewed today. Review of Systems All other systems reviewed and are negative. Objective There were no vitals filed for this visit. Physical Exam Constitutional: General: She is not in acute distress. Appearance: She is obese. She is not ill-appearing. HENT: Head: Normocephalic and atraumatic. Eyes: Extraocular Movements: Extraocular movements intact. Conjunctiva/sclera: Conjunctivae normal. Pulmonary: Effort: Pulmonary effort is normal. Neurological: Mental Status: She is alert and oriented to person, place, and time. Cranial Nerves: Cranial nerves 2-12 are intact. No cranial nerve deficit, dysarthria or facial asymmetry. Motor: Motor function is intact. No tremor. Gait: Gait is intact. Psychiatric: Mood and Affect: Mood normal. Behavior: Behavior normal. Thought Content: Thought content normal. Judgment: Judgment normal. Discussion Summary: #Focal Epilepsy, Non-intractable - EEG during EMU admission was abnormal revealed an interictal expression of a focal epilepsy of bilateral frontal (frontopolar) origin, as well as mild diffuse cerebral dysfunction. No seizures were captured and she has been seizure-free on levetiracetam monotherapy since August 2013 #Orthostatic Hypotension - tilt table test was positive for both vasodepressive and cardioinhibitory response Plan: Continue Levetiracetam XR 1500mg po at bedtime for seizures. Per guidelines for women of child-bearing age, continue folic acid 400mcg po daily and hormonal contraception Lab requisition form for BMP and levetiracetam level sent to patient's home to be done locally She may continue to drive per [place] law, as she has had no seizures since 2013 For orthostatic hypotension/positive tilt table test, will refer to Cardiology to see if there is an appointment sooner than April 2025 appointment at [facility]. In the meantime, educated importance of adequate fluid hydration and to wear over the knee compression stockings while awake. RTC in 6 months Assessment/Plan: Assessment & Plan Nonintractable focal epilepsy (CMS/HCC) Orders: levETIRAcetam XR (Keppra XR) 750 mg 24 hr tablet; Take 2 tablets by mouth daily. Do not crush, chew, or split. Hypotension, unspecified hypotension type Orders: Ambulatory referral to Cardiology; Future Aortopulmonary window Orders: Ambulatory referral to Cardiology; Future Counseling Documentation: The patient and parent were counseled regarding diagnostic results, risk factor reductions, instructions for management, patient and family education, impressions, and importance of compliance with treatment. Education provided was verbal counseling. Additional time was spent in care coordination including medical record review. The total time of encounter was 53 minutes. . [1] Past 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: Diagnosis Date Personal history of other specified conditions History of seizure [2] Family History Problem Relation Name Age of Onset Conversions - Other Other No known health problems [3] No past surgical history on file. [4] Current Outpatient Medications on File Prior to Visit Medication Sig Dispense Refill Biotin 5 MG tablet Take 1 tablet by mouth nightly. Biotin-Vitamin C (HAIR SKIN NAILS GUMMIES PO) Take 2 Chewable tablet by mouth daily. cholecalciferol (Vitamin D-3) 50 MCG (1999 UT) capsule Take 1 capsule by mouth every evening. ferrous sulfate 325 (65 Fe) MG tablet Take 1 tablet by mouth 1 (one) time each day with dinner. FIBER GUMMIES PO Take 3 Chewable tablet by mouth daily. folic acid (Folvite) 400 MCG tablet Take 1 tablet by mouth nightly. levETIRAcetam XR (Keppra XR) 750 mg 24 hr tablet Take 2 tablets by mouth daily. Do not crush, chew,or split. 60 tablet 0 levETIRAcetam XR (Keppra XR) 750 mg 24 hr tablet Take 2 tablets by mouth daily. Do not crush, chew,or split. 180 tablet 0 MAGNESIUM GLUCONATE PO Take 200 mg by mouth every evening. multivitamin (Theragran-M) tablet Take 2 tablets by mouth every evening. NORGESTIMATE-ETH ESTRADIOL PO Take 1 tablet by mouth nightly. polyethylene glycol (Miralax) 17 g packet Take 17 g by mouth daily. SUMAtriptan (Imitrex) 100 MG tablet Take 1 tablet by mouth 1 (one) time as needed for migraine. Wheat Dextrin (benefiber drink mix) packet Take 1 packet by mouth daily. No current facility-administered medications on file prior to visit. [5] Allergies Allergen Reactions Methimazole Other - please document in the comment field Oral lesions documented in this encounter Plan of Treatment Upcoming Encounters Date Type Department Care Team (Late st Contact Info) Description 04/24/2025 2:00 PM EST Office Visit [facility] [address] [facility] [place] [address] Sanaz Means MD [address] [place] [address] 01/16/2026 11:00 AM EDT Office Visit [facility] End[facility] [address] [place] [phone] Tapan Ybarra MD [address] [place] [phone] Scheduled Referrals Name Type Priority Associated Diagnoses Orde r Schedule Ambulatory referral to Cardiology Outpatient Referral Routine Hypotension, unspecified hypotension type Aortopulmonary window Expected: 01/02/2025 (Approximate), Expires: 07/06/2026 documented as of this encounter Visit Diagnoses Diagnosis Nonintractable focal epilepsy (CMS/HCC)- Primary Hypotension, unspecified hypotension type 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
--- OUTSIDE RECORDS SUMMARY | 2025-01-08 12:00 | XMS_ITS ---
Author Organization [facility] Address [address] [place] [id number] Care Team Providers Care Oil Furnace Installer Name Role Phone Joey Lora Primary Care Provider Tammy Kelley Eladio Estrada [phone] Allergies Allergen (clinical drug ingredient) Drug/Non Drug [...] should not monitor drug concentrations with the [employer] assay. These patients should be monitored using a validated chromatographic methodology that distinguishes between drugs to determine drug concentrations. Performed By: [facility] [address] [place] [address] Armored Car Guard: Darnell Mojica MD, PhD CLIA Number: [id number] REASON FOR VISIT sore throat, labs Medications [...] W/U Status Risk Notes Problem Seizure disorder ([id number]) Seizure disorder (G40.909) Active confirmed Vital Signs Blood pressure systolic 114 mm Hg 01/09/20 25 Blood pressure diastolic 64 mm Hg 025 Heart Rate 102 /min 01/08/2025 Height 67.25 in 01/08/2025 Weight 203 lbs 01/08/2025 BMI 31.55 kg/m2 01/08/2025 Encounters Encounter Location Date Provider Diagnosis [facility] [address] [place], [place] [id number] 01/08/2025 Joey Lora Acute URI J06.9 ; Seizure disorder 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.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 Assessments Encounter Date Diagnosis (ICD Code) Assessment Notes Treatment Notes Treatment Clinical Notes Section Notes 01/08/2025 Acute URI (ICD-10 - J06.9) 01/08/2025 Seizure disorder (ICD-10 - G40.909) 01/08/2025 [facility] use of drug (ICD-10 - Z79.899) Plan Of Treatment Medication Medication Name Sig Start Date Stop Date Notes Benzonatate 200 MG 1 capsule Orally Three times a day 12/12 Next Appt Details Follow Up: via phone to repo rt test results, Reason: Progress Notes * TIANA ESPINODOB:2000 ( 24 yo F)Acc No.[id number]:01/08/2025 Progress Notes Patient: TIANA WEAVER Account Number:[id number] Provider: Popeye Lora M.D. :2000 A ge:24 Y S ex:Female Date:01/08/2025 Address:[address] [place] [place] [address], [facility], [id number] Subjective: * Chief Complaints: * 1 . [...] LT Foot Tendon Tear- Sports Medicine 03/21/2017, [facility] ER - Extreme Fatigue 03/03/2024. [...] :21 AM EDT > See phone encounter 3.?[facility] use of drug?LAB: P-Levetiracetam (Collection Date & Time - 01/09/2025 08:05 AM)?9.5* Value Reference Range L evetiracetam 9.5 L 10.0-40.0 - ug/mL * Annabelle Lyle 01/13/2025 08:55 :21 AM EDT > See phone encounter * Procedure Codes: 8 5025 CBC WITH AUTO DIFF * Follow Up: v ia phone to report test results * Images: Billing Information: * Visit Code: 72237 Office Visit, Est Pt., Level 3. * Procedure Codes: 87530 CBC WITH AUTO DIFF. * Electronic signature of Nimo Lora MD on 01/23/2025 at 03:56 PM EDT Sign off status: Pending * Provider: Popeye Lora M.D. Date: 0 01/08/2025 Generated for Ceci banks/Nancy/eTnelidaitting on: 0 01/23/2025 03:56 PM EDT History [...]
--- OUTSIDE RECORDS SUMMARY | 2025-01-10 11:00 | XMS_ITS | Encounter Summary ---
Author Organization [facility] Address [address] [place] [address] Care Team Providers Care Environmental Scientist Name Role Phone Joey Lora MD Primary Care Provider [phone] Reason for Referral * Consultation (Routine) - Authorized Specialty Diagnoses / Procedures Referred By Ector lozano Referred To Contact Diagnoses Thyroid nodule Tapan Ybarra MD [address] [facility] [address] [place] [address] Phone: tel: fax: Referral ID Status Reason Start Date Expiration Date V isits Requested Visits Authorized [id number] Authorized 01/10/2025 07/12/2026 1 1 Reason for Visit * Reason Comments Thyroid Problem * Consultation (Routine) - Closed Specialty Diagnoses / Procedures Referred By Ector lozano Referred To Contact Endocrinology Diagnoses POTS (postural orthostatic tachycardia syndrome) Multiple thyroid nodules History of cardiac murmur Austin Harley, PLANT PACKER [address] [facility] [address] [place] [address] Phone: tel: fax: Referral ID Status Reason Start Date Expiration Date V isits Requested Visits Authorized [id number] Closed Specialty Services Required 10/05/2024 04/06/2026 1 1 Encounter Details Date Type Department Care Team (Late st Contact Info) Description 01/10/2025 11:00 AM EDT Office Visit [facility] [address] [place] [address] Tapan Ybarra MD [address] [address] Thyroid nodule (Primary Dx); Flushing Social History Tobacco Use Types Packs/Day Years Used Date Smoking Tobacco: Never Smokeless Tobacco: Never Tobacco Cessation:Counseling Given: Not Answered Alcohol Use Standard Drinks/Week Comments Not Currently 0 (1 standard drink = 0.6 oz pur e alcohol) PHQ-2 Answer Date Recorded Patient Health Questionnaire-2 Score 0 03/18/2024 Comments No Sex and Gender Information Value Date Recorded Sex Assigned at Not on file Legal Sex Female 8:25 PM EDT Gender Identity Not on file Sexual Orientation Not on file documented as of this encounter Last Filed Vital Signs Vital Sign Reading Time Taken Comments Blood Pressure 121/74 01/10/2025 10:52 AM EDT Pulse 82 01/10/2025 10:52 AM EDT Temperature - - Respiratory Rate - - Oxygen Saturation - - Inhaled Oxygen Concentration - - Weight 93.8 kg (206 lb 12.7 oz) 025 10:52 AM EDT Height 170 cm (5' 6.93 ) 01/10/2025 10: 52 AM EDT Body Mass Index 32.46 01/10/2025 10:52 AM EDT documented in this encounter Miscellaneous Notes * Progress Notes - Tapna Ybarra MD - 01/10/2025 11:00 AM EDT Neck Ultrasound Report Indication: Thyroid nodule Comparison Imaging: No Real time high resolution imaging of the thyroid gland was performed in transverse and longitudinalplanes. Images were saved and archived to PACS. The right thyroid lobe measured 3.92 cm length x 1.47 cm AP x 2.46 cm in TV dimension. The isthmus measured 2.3 mm in thickness. The left thyroid lobe measured 4.50 cm length x 1.01 cm AP x 1.83 cm in TV dimension. Lobes: Overall, the thyroid gland is heterogeneous and multinodular Nodules: There are 4 subcentimeter nodules in the right thyroid lobe There are 2 subcentimeter nodules in the left thyroid lobe A couple of lymph nodes were seen in right/left level IV, but no pathologic lymph nodes were seen. Impression: Multinodular heterogeneous thyroid gland with subcentimeter nodule bilaterally Recommendations: follow up thyroid US in 12 months Lab for flushing and history of presyncope in 09/2024 Will see rolled glass crosscutter Chief complaint Thyroid nodule HPI 24-year-old lady with thyroid nodule Seizure - takes Keppra History of AUB, takes OCP since 2018 Migraines headache, takes Sumatriptan as needed Takes MVI, biotin, vitamin D, folic acid, iron and Mg History of hot flushes, last minutes, happens daily 3-4 times History of presyncope History of + tilt testing Thyroid nodule No radiation exposure into head and neck Grandfather had thyroid cancer No compressive symptoms (no swallowing or breathing problem) Thyroid ultrasound on 09/26/2024 reported diffusely heterogeneous thyroid parenchyma, there are multiple subcentimeter nodules bilaterally, there is a colloid cyst 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 The patient is agreeable to the plan and all pertinent questions were answered. Component Latest Ref Rng 01/10/2025 Glucose 74 - 99 mg/dL 89 BUN 7 - 21 mg/dL 11 Creatinine 0.60 - 1.10 mg/dL 0.74 BUN/Creatinine Ratio 15 Sodium 136 - 145 mmol/L 138 Potassium 3.6 - 4.9 mmol/L 4.3 Chloride 97 - 107 mmol/L 102 CO2 22 - 29 mmol/L 27 Anion Gap 6 - 16 mmol/L 9 Calcium 8.9 - 10.2 mg/dL 9.5 EGFR mL/min/1.73m*2 117.5 CHROMOGRANIN A <93 ng/mL 25 Calcitonin 0.0 - 5.1 pg/mL 2.6 Tryptase <=10.9 ug/L 3.5 documented in this encounter Plan of Treatment Upcoming Encounters Date Type Department Care Team (Late st Contact Info) Description 04/24/2025 2:00 PM EST Office Visit [facility] [facility] [address] [place] [address] Sanaz Means MD [address] [place] [address] 01/16/2026 11:00 AM EDT Office Visit [facility] End[facility] [address] [place] [address] Tapan Ybarra MD [address] [place] [address] Scheduled Referrals Name Type Priority Associated Diagnoses Orde r Schedule Follow Up [facility] Outpatient Referral Routine Thyroid nodule Expected: 01/10/2026, Expires: 02/10/2026 documented as of this encounter Results * Chromogranin A (01/10/2025 12:23 PM EDT) CHROMOGRANIN A 25 <93 ng/mL 01/13/2025 12:34 PM EDT [facility] ([place]) Comment: ADDITIONAL INFORMATION The testing method is a homogeneous time-resolved immunofluorescent assay manufactured by [employer] and performed on the OpezS Kryptor Compact Plus. Values obtained with different assay methods or kits may be different and cannot be used interchangeably. Test results cannot be interpreted as absolute evidence for the presence or absence of malignant disease. In some immunoassays, the presence of unusually high concentrations of analyte may result in a high-dose hook effect. This may result in a lower or even normal measured analyte concentration. If the reported result is inconsistent with the clinical presentation, the laboratory should be alerted for troubleshooting. For diagnostic purposes, these immunoassay results should always be assessed in conjunction with the patients medical history, clinical examination and other findings. Test Performed by: [address] [address] Pipe And Tank Fabricator: Alejandro Prince Ph.D.; CLIA# [id number] Blood Venous blood specimen / Unknown Venipuncture / Unknown 01/10/2025 12:23 PM EDT 01/10/2025 12:23 PM EDT Tapan Ybarra MD LAB BLOOD ORDERABLES Final Result Performing Organization Address City/[facility]/ZIP Co de Phone Number [facility] * Calcitonin (01/10/2025 12:23 PM EDT) Calcitonin 2.6 0.0 - 5.1 pg/mL 01/12/2025 3:23 AM EDT [facility] Blood Venous blood specimen / Unknown Venipuncture / Unknown 01/10/2025 12:23 PM EDT 01/10/2025 12:23 PM EDT Narrative [facility] - 01/12/2025 3:23 AM EDT INTERPRETIVE INFORMATION: Calcitonin Calcitonin levels greater than 100 pg/mL may occur in the following conditions: medullary thyroid carcinomas (MTC), leukemias, and myeloproliferative disorders. Provocative testing (calcium) is suggested in patients with MTC if the calcitonin is not clearly diagnostic. The Siemens Immulite 2000 method is used. Results obtained with different assay methods or kits cannot be used interchangeably. Calcitonin is useful in monitoring medullary thyroid carcinoma. The calcitonin assay value, regardless of level, should not be interpreted as absolute evidence of the presence or absence of malignant disease. Performed By: [facility] [address] [place] [address] Director Patient: Darnell Mojica MD, PhD CLIA Number: [id number] Tapan Ybarra MD LAB BLOOD ORDERABLES Final Result Performing Organization Address City/[facility] Co de Phone Number [facility] [employer] [facility]) [address] [phone] * Tryptase (01/10/2025 12:23 PM EDT) TRYPTASE 3.5 <=10.9 ug/L 01/13/2025 7:35 PM EDT [facility] ([place]) Serum Venous blood specimen / Unknown 01/10/2025 12:23 PM EDT 01/10/2025 12:23 PM EDT Narrative [facility] [place]) - 01/13/2025 7:35 PM EDT Performed By: [facility] [employer] [address] [place] [address] Director Patient: Darnell Mojica MD, PhD CLIA Number: [id number] Tapan Ybarra MD LAB BLOOD ORDERABLES Final Result Performing Organization Address City/[facility]/ZIP Co de Phone Number [facility] [employer]) [address] [place] [phone] * Metanephrines, plasma, free (01/10/2025 12:23 PM EDT) Pathologist [facility] Metanephrine, Free <0.20 <0.50 nmol/L 01/14/2025 2:43 PM EDT [facility]) Comment: ADDITIONAL INFORMATION This test was developed and its performance characteristics determined by [facility] in a manner consistent with CLIA requirements. This test has not been cleared or approved by the U.S. Food and Drug Administration. Test Performed by: [facility] [place] [address] Pipe And Tank Fabricator: Alejandro Prince Ph.D.; CLIA# [id number] Normetanephrine, Free 0.34 <0.90 nmol/L 01/14/2025 2:43 PM EDT [facility]) Blood Venous blood specimen / Unknown Venipuncture / Unknown 01/10/2025 12:23 PM EDT 01/10/2025 12:23 PM EDT Tapan Ybarra MD LAB BLOOD ORDERABLES Final Result [facility]) documented in this encounter Visit Diagnoses Diagnosis Thyroid nodule- Primary Nontoxic uninodular goiter Flushing documented in this encounter Additional Health Concerns Assessment Noted Time A fall risk assessment has been complete d for the patient 03/18/2024 8:02 AM EDT A Body Mass Index follow-up plan has been documented for the patient 01/14/2025 10:04 AM EDT documented as of this encounter Care Teams Environmental Scientist Relationship Specialty Start Date End Date Joey Lora MD [address] [place] [address] PCP - General 10/23/20 documented as of this encounter
[2025-01-23 15:50] VITALS: BP 137/83; PULSE 70; RESP 18; O2SAT 96; BMI 32.3
--- OUTSIDE RECORDS SUMMARY | 2025-01-23 15:55 | XMS_ITS | Clinical Summary ---
Author Organization [facility] Address [address] [place] [address] Care Team Providers Care Industrial Nurse Name Role Phone Joey Lora MD Primary Care Provider [phone] Allergies Active Allergy Reactions Criticality Noted Date Comments Methimazole Other - please docum ent in the comment field Medium 10/03/2024 Oral lesions Medications folic acid (Folvite) 400 MCG tablet Take 1 tablet by mouth nightly. 0 Active MAGNESIUM GLUCONATE PO Take 200 mg by mouth every evening. Active cholecalcifero l (Vitamin D-3) 50 MCG (1999) capsule Take 1 capsule by mouth every evening. Active ferrous sulfate 325 (65 Fe) MG tablet Take 1 tablet by mouth 1 (one) time each day with dinner. Active Biotin 5 MG tablet Take 1 tablet by mouth nightly. Active NORGESTIMATE-E TH ESTRADIOL PO Take 1 tablet by mouth nightly. Active multivitamin (Theragran-M) tablet Take 2 tablets by mouth every evening. Active polyethylene glycol (Miralax) 17 g packet Take 17 g by mouth daily. Active Wheat Dextrin (benefiber drink mix) packet Take 1 packet by mouth daily. Active FIBER GUMMIES PO Take 3 Chewable tablet by mouth daily. Active Biotin-Vitamin C (HAIR SKIN NAILS GUMMIES PO) Take 2 Chewable tablet by mouth daily. Active SUMAtriptan (Imitrex) 100 MG tablet Take 1 tablet by mouth 1 (one) time as needed for migraine. Active levETIRAcetam XR (Keppra XR) 750 mg 24 hr tablet Take 2 tablets by mouth daily. Do not crush, chew, or split. 60 tablet 5 Active levETIRAcetam XR (Keppra XR) 750 mg 24 hr tabletIndicati ons:Nonintract able focal epilepsy (CMS/HCC) Take 2 tablets by mouth daily. Do not crush, chew, or split. 180 tablet 3 5 12/29/19 26 Active Additional Information Patient not taking.Reported on 01/10/2025 benzonatate (Tessalon) 200 MG capsule 1 capsule every 8 hours. 5 Active levETIRAcetam XR (Keppra XR) 750 mg 24 hr tablet Take 2 tablets by mouth daily. Do not crush, chew, or split. 180 tablet 5 01/03/20 25 Discontin ued(Reord er) Active Problems Problem Noted Date Diagnosed Date Seizure 10/03/2024 Encounters Date Type Department Care Team Description 01/14/2025 Results Follow-Up [facility] Endocrinology [address] [place] [address] Tapan Ybarra MD 01/10/2025 11:00 AM EDT Office Visit [facility] Endocr[facility]ology [address] [place] [address] Tapan Ybarra MD Thyroid nodule (Primary Dx); [place] 01/10/2025 Telephone [facility] [address] [facility], [address] [place] [address] None, None HCN - Patient Message 01/10/2025 Orders Only External Location [address] [place] [address] Provider, External 01/10/2025 Travel 01/02/2025 9:00 AM EDT [facility] [address], [address] [place] [address] Marie Steinberg MD Nonintractable focal epilepsy (CMS/HCC) (Primary Dx); Hypotension, unspecified hypotension type; Aortopulmonary window 01/02/2025 Orders Only [facility] [address] [facility] [place] [address] Lori Verma S, SUPERINTENDENT TRACK ASD (atrial septal defect) (Primary Dx) 01/01/2025 Travel 01/01/2025 Telephone [facility] [address], [address] [place] [address] Padmini Mendes Appointment 01/01/2025 Orders Only [facility] [address], [address] [place] [address] Marie Steinberg MD Nonintractable focal epilepsy (CMS/HCC) (Primary Dx) 12/19/2024 Telephone [facility] [address], [address]st [place] [address] Marie Steinberg MD 12/19/2024 Telephone [facility] [address], 1st [place] [address] Marie Steinberg MD 12/18/2024 Telephone [facility] [address], [address] [place] [address] Marie Steinberg MD from Last 3 Months Family History 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 Relation Name Comments Conversions - Other Other No known health problems Relation Name Status Comments Other Social History Tobacco Use Types Packs/Day Years [...] on file Sexual Orientation Not on file Last Filed Vital Signs Vital Sign Reading Time Taken Comments Blood Pressure 121/74 01/10/2025 10:52 AM EDT Pulse 82 01/10/2025 10:52 AM EDT Temperature 36.7 C (98 F) 10/05/2024 8:14 AM EDT Respiratory Rate 18 10/05/2024 8:14 AM EDT Oxygen Saturation 97% 10/05/2024 8:14 AM EDT Inhaled Oxygen Concentration - - Weight 93.8 kg (206 lb 12.7 oz) 025 10:52 AM EDT Height 170 cm (5' 6.93 ) 01/10/2025 10: 52 AM EDT Body Mass Index 32.46 01/10/2025 10:52 AM EDT Plan of Treatment Upcoming Encounters Date Type Department Care Team (Late st Contact Info) Description 04/24/2025 2:00 PM EST Office Visit [facility] [address] [place] [address] Sanaz Means MD [address] [place] [address] 01/16/2026 11:00 AM EDT Office Visit [facility] [place] [facility] Endocrinology [address] [place] [address] Tapan Ybarra MD [address] [facility] [address] [place] [address] Health Maintenance Due Date Last Done Comments [facility]-HIV Screening 2002 [facility]-Hepatitis C Screening 2002 [facility]-Infant/Child/Adol SDOH Screenings 2002 [facility]-Varicella Vaccines (2 of 2 - 2-dose childhood series) 08/05/2013 05/13/2013 [facility]- SDOH Screenings 2020 [facility]-Adult SDOH Screenings 2020 [facility]-Hepatitis B Vaccines (1 of 3 - 19+ 3-dose series) 2021 [facility]-Pap Smear 2023 [facility]-DTaP,Tdap,and Td Vaccines (2 - Td or Tdap) 05/13/2023 05/13/2013 [id number] Vaccine (4 - 2023- season) 2024 06/26/2021, 10/10/2020, 09/19/2020 [facility]-Influenza Vaccine (#1) 02/10/202504/02, 04/01/2020, 04/05/2019, Additional history exists [facility]-Depression Screening 03/18/2025 03/18/2024 [facility]-Zoster Vaccines (1 of 2) 2052 05/13/2013 HPV Vaccines Completed 01/08/2018, 09/10, 07/04/2017, Additional history exists [facility]-Hepatitis A Vaccines Completed 01/08/2018, 06/13 [facility]-Obesity Intervention Completed 025, 01/02/2025, 10/02/2024, Additional history exists [facility]-HIB Vaccines Aged Out No longer e ligible based on patient's age to complete this topic [facility]-IPV Vaccines Aged Out No longer e ligible based on patient's age to complete this topic [facility]-Pneumococcal Vaccine: Pediatrics (0 to 5 Years) and At-Risk Patients (6 to 49 Years) Aged Out No longer eligible based on patient's age to complete this topic [facility]-Rotavirus Vaccines Aged Out No lo nger eligible based on patient's age to complete this topic Procedures Procedure Name Priority Date/Time Associated Diagnosis Comments LEVETIRACETAM LEVEL Routine 01/10/2025 1 2:23 PM EDT Nonintractable focal epilepsy (CMS/HCC) BASIC METABOLIC PANEL, PLASMA Routine 01/10/2025 12:23 PM EDT Nonintractable focal epilepsy (CMS/HCC) METANEPHRINES, FRACTIONATED, FREE, PLASMA (SO) Routine 01/10/2025 12:23 PM EDT [place] TRYPTASE (SO) Routine 01/10/2025 12:23 PM EDT [place] CALCITONIN Routine 01/10/2025 12:23 PM EDT [place] CHROMOGRANIN A Routine 01/10/2025 12:23 PM EDT [place] POC ULTRASOUND 01/10/2025 from Last 3 Months Results * Chromogranin A (01/10/2025 12:23 PM EDT) CHROMOGRANIN A 25 <93 ng/mL 01/13/2025 12:34 PM EDT [facility] ([facility]) Comment: ADDITIONAL INFORMATION The testing method is a homogeneous time-resolved immunofluorescent assay manufactured by [employer] and performed on the [employer] KrMemoboxor Compact Plus. Values obtained with different assay [...] examination and other findings. Test Performed by: [place] [address] Machine Cage Maker: Alejandro Prince Ph.D.; CLIA# [id number] Blood Venous blood specimen / Unknown Venipuncture / Unknown 01/10/2025 12:23 PM EDT 01/10/2025 12:23 PM EDT Tapan Ybarra MD LAB BLOOD ORDERABLES Final Result [facility]) * Metanephrines, plasma, free (01/10/2025 12:23 PM EDT) Metanephrine, Free <0.20 <0.50 nmol/L 01/14/2025 2:43 PM EDT [facility] ([facility]) Comment: ADDITIONAL INFORMATION This test was developed and its performance characteristics determined by [facility] in a manner consistent with CLIA requirements. This test has not been cleared or approved by the U.S. Food and Drug Administration. Test Performed by: [facility] [address] [place] [address] Machine Cage Maker: Alejandro Prince Ph.D.; CLIA# [id number] Normetanephrine, Free 0.34 <0.90 nmol/L 01/14/2025 2:43 PM EDT [facility] ([facility]) Blood Venous blood specimen / Unknown Venipuncture / Unknown 01/10/2025 12:23 PM EDT 01/10/2025 12:23 PM EDT Tapan Ybarra MD LAB BLOOD ORDERABLES Final Result Performing Organization Address City/[facility]/ZIP Co de Phone Number [facility]) * Tryptase (01/10/2025 12:23 PM EDT) TRYPTASE 3.5 <=10.9 ug/L 01/13/2025 7:35 PM EDT [facility] Serum Venous blood specimen / Unknown 01/10/2025 12:23 PM EDT 01/10/2025 12:23 PM EDT Narrative [facility] - 01/13/2025 7:35 PM EDT Performed By: [facility] [address] [place] [address] Hat Band Attacher: Darnell Mojica MD, PhD CLIA Number: [id number] Tapan Ybarra MD LAB BLOOD ORDERABLES Final Result Performing Organization Address City/[facility]/ZIP Co de Phone Number [facility] [address] [place] [address] * Calcitonin (01/10/2025 12:23 PM EDT) Calcitonin 2.6 0.0 - 5.1 pg/mL 01/12/2025 3:23 AM EDT [facility] ([facility]) Blood Venous blood specimen / Unknown Venipuncture / Unknown 01/10/2025 12:23 PM EDT 01/10/2025 12:23 PM EDT Narrative [facility]) - 01/12/2025 3:23 AM EDT INTERPRETIVE INFORMATION: [...] or absence of malignant disease. Performed By: [facility] [address] [place] [address] Hat Band Attacher: Darnell Mojica MD, PhD CLIA Number: [id number] us Tapan Ybarra MD LAB BLOOD ORDERABLES Final Result Performing Organization Address [facility] Co de Phone Number [facility] ([facility]) [address] [place] [phone] * Levetiracetam level (01/10/2025 12:23 PM EDT) Levetiracetam (Keppra) 13.4 12.0 - 46.0 ug/mL 01/14/2025 7:[address] [facility] Blood Venous blood specimen / Unknown Venipuncture / Unknown 01/10/2025 12:23 PM EDT 01/10/2025 12:[address] [facility] - 01/14/2025 7:11 PM EDT Test performed by LC-MS/MS at the [facility]. This test was developed and its performance characteristics determined by [facility]. It has not been cleared or approved by the FDA. The laboratory is regulated under CLIA as qualified to perform high-complexity testing. This test is used for clinical purposes. us Marie Steinberg MD LAB BLOOD ORDERABLES Final Resul t Performing Organization Address City/[facility] Co de Phone Number [facility] [address] [place] [address] * Basic metabolic panel (01/10/2025 12:23 PM EDT) Glucose, Plasma 89 74 - 99 mg/dL 01/10/2025 2:[address] [facility] BUN, Plasma 11 7 - 21 mg/dL 01/10/2025 2:[address] [facility] Creatinine, Plasma 0.74 0.60 - 1.10 mg/dL 01/10/2025 2:[address] [facility] BUN/Creatinine Ratio 15 01/10/2025 2:[address] [facility] Sodium, Plasma 138 136 - 145 mmol/L 01/10/2025 2:[address] [facility] Potassium, Plasma 4.3 3.6 - 4.9 mmol/L 01/10/2025 2:[address] [facility] Chloride, Plasma 102 97 - 107 mmol/L 01/10/2025 2:[address] [facility] CO2, Plasma 27 22 - 29 mmol/L 01/10/2025 2:[address] [facility] Anion Gap 9 6 - 16 mmol/L 01/10/2025 2:[address] [facility] Total Calcium, Plasma 9.5 8.9 - 10.2 mg/dL 01/10/2025 2:[address] [facility] eGFRcr 117.5 mL/min/1.7 3m*2 01/10/2025 2:[address] [facility] Comment:Reported eGFRcr in m L/min/1.73m2 is based the CKD-EPI 2020 equation that does not use a race coefficient. Blood Venous blood specimen / Unknown Venipuncture / Unknown 01/10/2025 12:23 PM EDT 01/10/2025 12:23 PM EDT us Marie Steinberg MD LAB BLOOD ORDERABLES Final Resul t [facility] [address] [place] [address] * POC Imaging (01/10/2025) Anatomical Region Laterality Modality Pelvis Other 01/10/2025 us External Provider IMG POINT OF CARE ULTRASOUND F inal Result from Last 3 Months Insurance ANTHEM Member Subscriber Plan / Payer (Ef fective 2023-Present) Name:SRINIVASCHAYA Relation to Subscriber:Self Name:Chaya Mandujano Payer ID:[id number] (NAIC) Type:Not on file Address: [place] [phone] ANTHEM Advance Directives * Full Code (Latest Code Status on File) Date Activated Date Inactivated Comments 10/03/2024 9:11 AM 10/05/2024 12:53 PM Question Answer Comments I have reviewed the capacity from the link above and, if needed, have updated to appropriate status: Yes Care Teams Industrial Nurse Relationship Specialty Start Date End Date Joey Lora MD [address] [place] [address] PCP - General 10/23/20
--- OUTSIDE RECORDS SUMMARY | 2025-01-23 15:55 | XMS_ITS | Encounter Summary ---
Author Organization Healthcare Address [address] [place] [address] Care Team Providers Care Manager Law Name Role Phone Joey Lora MD Primary Care Provider [phone] Encounter Details Date Type Department Care Team (Late st Contact Info) Description 12/19/2024 Telephone [facility] [address], [address] [place] [address] Marie Steinberg MD [address] [place] [address] Social History Tobacco Use Types Packs/Day Years [...] on file documented as of this encounter Plan of Treatment Upcoming Encounters Date Type Department Care Team (Late st Contact Info) Description 04/24/2025 2:00 PM EST Office Visit [facility] [facility] [address] [facility] [place] [address] Sanaz Means MD [address] [place] [address] 01/16/2026 11:00 AM EDT Office Visit [facility] [address] [place] [address] Tapan Ybarra MD [address] [facility] [address] [place] [address] documented as of this encounter Visit Diagnoses Not on filedocumented in this encounter Additional Health Concerns Assessment Noted Time A fall risk assessment has been complete d for the patient 03/18/2024 8:02 AM EDT A Body Mass Index follow-up plan has been documented for the patient 10/05/2024 9:50 AM EDT documented as of this encounter Care Teams Manager Law Relationship Specialty Start Date End Date Joey Lora MD [facility] [address] [address] PCP - General 10/23/20 documented as of this encounter
--- OUTSIDE RECORDS SUMMARY | 2025-01-23 15:55 | XMS_ITS | Encounter Summary ---
Author Organization [facility] Address [address] [place] [address] Care Team Providers Care Crew Manager Name Role Phone Joey Lora MD Primary Care Provider [phone] Reason for Referral * Imaging (Routine) - Pending Review Specialty Diagnoses / Procedures Referred By Ector lozano Referred To Contact Cardiology Diagnoses ASD (atrial septal defect) Procedures Echo, Adult Congenital Transthoracic (TTE) Complete Lori Verma APRN [address] [place] [address] Phone: tel: fax: Referral ID Status Reason Start Date Expiration Date Visits Requested Visits Authorized [id number] Pending Review Perform Procedure 01/02/2025 07/04/2026 1 1 Encounter Details Date Type Department Care Team (Late st Contact Info) Description 01/02/2025 Orders Only [facility] [place] [facility] [address] [facility] [place] [address] Lori Verma APRN [address] [place] [address] ASD (atrial septal defect) (Primary Dx) Social History Tobacco Use Types Packs/Day Years [...] Description 04/24/2025 2:00 PM EST Office Visit [facility] [place] [facility] [address] [place] [address] Sanaz Means MD [address] [place] [address] 01/16/2026 11:00 AM EDT Office Visit [facility] [place] [facility] Endocrinology [address] [place] [address] Tapan Ybarra MD [address] [address] Scheduled Orders Name Type Priority Associated Diagnoses Orde r Schedule Echo, Adult Congenital Transthoracic (TTE) Complete Congenital Echo Routine ASD (atrial septal defect) Ordered: 01/02/2025 documented as of this encounter Visit Diagnoses Diagnosis ASD (atrial septal defect)- Primary Ostium secundum type atrial septal defect documented in this encounter Additional Health Concerns Assessment Noted Time A fall risk assessment has been complete d for the patient 03/18/2024 8:02 AM EDT A Body Mass Index follow-up plan has been documented for the patient 01/02/2025 2:28 PM EDT documented as of this encounter Care Teams Crew Manager Relationship Specialty Start Date End Date Joey Lora MD [address] [facility] [address] [place] [address] PCP - General 10/23/20 documented as of this encounter
--- OUTSIDE RECORDS SUMMARY | 2025-01-23 15:55 | XMS_ITS | Clinical Summary ---
Author Organization [facility] Address [facility] [place] [address] Care Team Providers Care Commercial Helicopter Pilot Name Role Phone Joey Lora MD Primary Care Provider [phone] Allergies No known active allergies Medications folic acid (FOLVITE) 1 MG tablet Take 1 tablet by mouth daily. Active norgestimate-et hinyl estradiol (ORTHO-CYCLEN) 0.25-35 MG-MCG 01/06/2021 Acti ve levETIRAcetam (KEPPRA XR) 500 MG 24 hr tablet TAKE 2 TABLETS BY MOUTH NIGHTLY. 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 Social History Tobacco Use Types Packs/Day Years Used Date Smoking Tobacco: Never Passive Smoke Exposure: Past Smokeless Tobacco: Never Tobacco Cessation:Counseling Given: Not Answered Alcohol Use Standard Drinks/Week Comments Never 0 (1 standard drink = 0.6 oz pur e alcohol) Comments No Sex and Gender Information Value Date Recorded Sex Assigned at Female 09/06/2021 10:05 AM EDT Legal Sex Female 4:14 PM EST Gender Identity Female 09/06/2021 10:05 AM EDT Sexual Orientation Straight 09/06/2021 10 :05 AM EDT Last Filed Vital Signs Vital Sign Reading Time Taken Comments Blood Pressure 112/76 07/18/2022 12:31 PM EST Pulse 103 07/18/2022 12:31 PM EST Temperature - - Respiratory Rate - - Oxygen Saturation 98% 07/18/2022 12:31 PM EST Inhaled Oxygen Concentration - - Weight 75.1 kg (165 lb 9.1 oz) 07/18/2022 12:31 PM EST Height 168 cm (5' 6.14 ) 07/18/2022 12:31 PM EST Body Mass Index 26.61 07/18/2022 12:31 PM EST Plan of Treatment Health Maintenance Due Date Last Done Comments Hepatitis B (HepB) Vaccine (1 of 3 - 19+ 3-dose series) 2021 Tdap/Td Vaccine >11 yo (1 - Tdap) 2021 Cervical Cancer Screening 2023 Annual SDOH Screening 06/12/2024 Depression Screening 06/12/2024 Influenza Vaccine (#1) 2025 , 04/05/2019, 04/04/2018, Additional history exists HPV Vaccine Completed 01/08/2018, 09/10, 07/04/2017 Hepatitis A (HepA) Vaccine Completed 01/08/2018, Meningococcal ACWY Completed 07/25/2018 Haemophilus Influenzae Type B (Hib) Vaccine Aged Out No longer eligible based on patient's age to complete this topic Pneumococcal Vaccines 6-49 yo Risk Aged Out No longer eligible based on patient's age to complete this topic Polio (IPV) Aged Out No longer eligi ble based on patient's age to complete this topic Rotavirus (RV) Vaccine Aged Out No lo nger eligible based on patient's age to complete this topic Insurance WILLIS ANTH Care Teams Commercial Helicopter Pilot Relationship Specialty Start Date End Date Joey Lora MD [address] [place] [address] PCP - General 05/26/09
--- OUTSIDE RECORDS SUMMARY | 2025-01-23 15:55 | XMS_ITS | Encounter Summary ---
Author Organization Healthcare Address [address] [place] [address] Care Team Providers Care Law Enforcement Director Name Role Phone Joey Lora MD Primary Care Provider [phone] Encounter Details Date Type Department Care Team (Latest Contact Info) Description 01/01/2025 Travel Social History Tobacco Use Types Packs/Day Years [...] Description 04/24/2025 2:00 PM EST Office Visit [facility] [place] [facility] [address] [facility] [place] [address] Sanaz Means MD [address] [place] [address] 01/16/2026 11:00 AM EDT Office Visit [facility] [address] [place] [address] Tapan Ybarra MD [address] [address] documented as of this encounter Visit Diagnoses Not on filedocumented in this encounter Additional Health Concerns Assessment Noted Time A fall risk assessment has been complete d for the patient 03/18/2024 8:02 AM EDT A Body Mass Index follow-up plan has been documented for the patient 10/05/2024 9:50 AM EDT documented as of this encounter Care Teams Law Enforcement Director Relationship Specialty Start Date End Date Joey Lora MD [address] [place] [address] [place] [address] PCP - General 10/23/20 documented as of this encounter
--- OUTSIDE RECORDS SUMMARY | 2025-01-23 15:55 | XMS_ITS | Encounter Summary ---
Author Organization Healthcare Address [address] [place] [address] Care Team Providers Care Beef Killer Name Role Phone Joey Lora MD Primary Care Provider [phone] Encounter Details Date Type Department Care Team (Late st Contact Info) Description 12/18/2024 Telephone [facility] [address], [address] [place] [address] Marie Steinberg MD [address] [place] [address] Social History Tobacco Use Types [...] EST Office Visit [facility] [place] [facility] [address] [facility] [place] [address] Sanaz Means MD [address] [place] [address] 01/16/2026 11:00 AM EDT Office Visit [facility] [address] [place] [address] Tapan Ybarra MD [address] [facility] [address] [place] [address] documented as of this encounter Visit Diagnoses Not on filedocumented in this encounter Additional Health Concerns Assessment Noted Time A fall risk assessment has been complete d for the patient 03/18/2024 8:02 AM EDT A Body Mass Index follow-up plan has been documented for the patient 10/05/2024 9:50 AM EDT documented as of this encounter Care Teams Beef Killer Relationship Specialty Start Date End Date Joey Lora MD [facility] [address] [address] PCP - General 10/23/20 documented as of this encounter
--- OUTSIDE RECORDS SUMMARY | 2025-01-23 15:55 | XMS_ITS | Encounter Summary ---
Author Organization Healthcare Address [address] [place] [address] Care Team Providers Care Hotel Maintenance Engineer Name Role Phone Joey Lora MD Primary Care Provider [phone] Encounter Details Date Type Department Care Team (Late st Contact Info) Description 02/08/2016 Orders Only External Location [address] [place] [address] Provider, External Social History Tobacco Use Types Packs/Day Years Used Date Smoking Tobacco: Never Assessed Comments Unknown Sex and Gender Information Value Date Recorded Sex Assigned at Not on file Legal Sex Female 8:25 PM EDT Gender Identity Not on file Sexual Orientation Not on file documented as of this encounter Plan of Treatment Upcoming Encounters Date Type Department Care Team (Late st Contact Info) Description 04/24/2025 2:00 PM EST Office Visit [facility] [place] [address] [facility]. [address] [place] [address] Sanaz Means MD [address] [place] [address] 01/16/2026 11:00 AM EDT Office Visit [facility] [address] [place] [address] Tapan Ybarra MD [address] [phone] documented as of this encounter Procedures Procedure Name Priority Date/Time Associated Diagnosis Comments MR NEURO OUTSIDE IMAGES 02/08/2016 11:50 AM EDT documented in this encounter Results * MR NEURO OUTSIDE IMAGES (02/08/2016 11:50 AM EDT) Anatomical Region Laterality Modality Magnetic Resonan ce 02/08/2016 11:5 0 AM EDT us External Provider IMG MRI PROCEDURES Final Resul t documented in this encounter Visit Diagnoses Not on filedocumented in this encounter Care Teams Hotel Maintenance Engineer Relationship Specialty Start Date End Date Joey Lora MD [address] [place] [address] PCP - General 10/23/20 documented as of this encounter
--- OUTSIDE RECORDS SUMMARY | 2025-01-23 15:55 | XMS_ITS | Encounter Summary ---
Author Organization Healthcare Address [address] [place] [address] Care Team Providers Care Carrier Operator Name Role Phone Joey Lora MD Primary Care Provider [phone] Encounter Details Date Type Department Care Team (Late st Contact Info) Description 05/26/2009 Orders Only External Location [address] [place] [address] Provider, External Social History Tobacco Use Types [...] Description 04/24/2025 2:00 PM EST Office Visit [facility] [place] 800 [facility]. [address] [place] [address] Sanaz Means MD [address] [place] [phone] 01/16/2026 11:00 AM EDT Office Visit [facility] End[facility]ology [address] [place] [address] Tapan Ybarra MD [address] [phone] documented as of this encounter Procedures Procedure Name Priority Date/Time Associated Diagnosis Comments MR NEURO OUTSIDE IMAGES 05/26/2009 9:14 AM EST documented in this encounter Results * MR NEURO OUTSIDE IMAGES (05/26/2009 9:14 AM EST) Anatomical Region Laterality Modality Magnetic Resonan ce 05/26/2009 9:14 AM EST us External Provider IMG MRI PROCEDURES Final Resul t documented in this encounter Visit Diagnoses Not on filedocumented in this encounter Care Teams Carrier Operator Relationship Specialty Start Date End Date Joey Lora MD [address] [place] [address] PCP - General 10/23/20 documented as of this encounter
--- OUTSIDE RECORDS SUMMARY | 2025-01-23 15:55 | XMS_ITS | Encounter Summary ---
Author Organization [facility] Address [address] [place] [id number] Care Team Providers Care Conveyor Worker Name Role Phone Joey Lora MD Primary Care Provider [phone] Reason for Visit * Reason Onset Date Comments Appointment 01/01/2025 Encounter Details Date Type Department Care Team (Late st Contact Info) Description 01/01/2025 Telephone [facility] [address], [address] [place] [address] Padmini Mendes [place] [id number] Appointment Social History Tobacco Use Types Packs/Day Years [...] as of this encounter Miscellaneous Notes * Telephone Encounter - Padmini Mendes - 01/01/2025 12:00 PM EDT Lvm that I was calling to pre reg patient for a TH appt on 01/02 at [address] Steinberg. Cb# [id number]. documented in this encounter Plan of Treatment Upcoming Encounters Date Type Department Care Team (Late st Contact Info) Description 04/24/2025 2:00 PM EST Office Visit [facility] [place] [address] [place] [address] Saanz Means MD [address] [place] [address] 01/16/2026 11:00 AM EDT Office Visit [facility] End[facility]ology [address] [place] [address] Tapan Ybarra MD [address] [place] [address] documented as of this encounter Visit Diagnoses Not on filedocumented in this encounter Additional Health Concerns Assessment Noted Time A fall risk assessment has been complete d for the patient 03/18/2024 8:02 AM EDT A Body Mass Index follow-up plan has been documented for the patient 10/05/2024 9:50 AM EDT documented as of this encounter Care Teams Conveyor Worker Relationship Specialty Start Date End Date Joey Lora MD [address] [facility] [address] [place] [address] PCP - General 10/23/20 documented as of this encounter
--- OUTSIDE RECORDS SUMMARY | 2025-01-23 15:55 | XMS_ITS | Encounter Summary ---
Author Organization Healthcare Address [address] [place] [address] Care Team Providers Care Time Study Technician Name Role Phone Joey Lora MD Primary Care Provider [phone] Encounter Details Date Type Department Care Team (Late st Contact Info) Description 02/08/2006 Orders Only External Location [address] [place] [address] Provider, External Social History Tobacco Use Types [...] Description 04/24/2025 2:00 PM EST Office Visit [facility] [place] [address] [facility]. [address] [place] [address] Sanaz Means MD [address] [place] [address] 01/16/2026 11:00 AM EDT Office Visit [facility] [address] [place] [address] Tapan Ybarra MD [address] [phone] documented as of this encounter Procedures Procedure Name Priority Date/Time Associated Diagnosis Comments MR NEURO OUTSIDE IMAGES 02/08/2006 10:00 AM EDT documented in this encounter Results * MR NEURO OUTSIDE IMAGES (02/08/2006 10:00 AM EDT) Anatomical Region Laterality Modality Magnetic Resonan ce 02/08/2006 10:0 0 AM EDT us External Provider IMG MRI PROCEDURES Final Resul t documented in this encounter Visit Diagnoses Not on filedocumented in this encounter Care Teams Time Study Technician Relationship Specialty Start Date End Date Joey Lora MD [address] [place] [address] PCP - General 10/23/20 documented as of this encounter
--- OUTSIDE RECORDS SUMMARY | 2025-01-23 15:55 | XMS_ITS | Encounter Summary ---
Author Organization Healthcare Address [address] [place] [address] Care Team Providers Care Toe Stapler Name Role Phone Joey Lora MD Primary Care Provider [phone] Encounter Details Date Type Department Care Team (Late st Contact Info) Description 08/18/2022 Orders Only External Location [address] [place] [address] Provider, External Social History Tobacco Use Types Packs/Day Years Used Date Smoking Tobacco: Never Comments Unknown Sex and Gender Information Value Date Recorded Sex Assigned at Not on file Legal Sex Female 8:25 PM EDT Gender Identity Not on file Sexual Orientation Not on file documented as of this encounter Plan of Treatment Upcoming Encounters Date Type Department Care Team (Late st Contact Info) Description 04/24/2025 2:00 PM EST Office Visit [facility] [place] [address] [facility]. [address] [place] [address] Sanaz Means MD [address] [place] [address] 01/16/2026 11:00 AM EDT Office Visit [facility] End[facility]inology [address] [place] [address] Tapan Ybarra MD [address] [phone] documented as of this encounter Procedures Procedure Name Priority Date/Time Associated Diagnosis Comments MR NEURO OUTSIDE IMAGES 08/18/2022 10:50 AM EST documented in this encounter Results * MR NEURO OUTSIDE IMAGES (08/18/2022 10:50 AM EST) Anatomical Region Laterality Modality Magnetic Resonan ce 08/18/2022 10:5 0 AM EST us External Provider IMG MRI PROCEDURES Final Resul t documented in this encounter Visit Diagnoses Not on filedocumented in this encounter Care Teams Toe Stapler Relationship Specialty Start Date End Date Joey Lora MD [address] [place] [address] PCP - General 10/23/20 documented as of this encounter
--- OUTSIDE RECORDS SUMMARY | 2025-01-23 15:55 | XMS_ITS | Encounter Summary ---
Author Organization Healthcare Address [address] [place] [address] Care Team Providers Care Estate Planning Paralegal Name Role Phone Joey Lora MD Primary Care Provider [phone] Encounter Details Date Type Department Care Team (Late st Contact Info) Description 12/19/2024 Telephone [place] [facility] [address], 1[address] [place] [address] Marie Steinberg MD [address] [place] [address] Social History Tobacco Use Types [...] EST Office Visit [facility] [place] [facility] [address] [facility]. [address] [place] [address] Sanaz Means MD [address] [place] [address] 01/16/2026 11:00 AM EDT Office Visit [facility] [address] [place] [address] Tapan Ybarra MD [address] [facility] [address] [place] [address] documented as of this encounter Visit Diagnoses Not on filedocumented in this encounter Additional Health Concerns Assessment Noted Time A fall risk assessment has been complete d for the patient 03/18/2024 8:02 AM EDT A Body Mass Index follow-up plan has been documented for the patient 10/05/2024 9:50 AM EDT documented as of this encounter Care Teams Estate Planning Paralegal Relationship Specialty Start Date End Date Joey Lora MD [facility] [address] [address] PCP - General 10/23/20 documented as of this encounter
--- OUTSIDE RECORDS SUMMARY | 2025-01-23 15:55 | XMS_ITS | Clinical Summary ---
Author Organization [facility] Address [address] [facility] [address] [place] [address] Phone Care Team Providers Care Engineering Administrator Name Role Phone Joey Lora MD Primary Care Provider [phone] Allergies Active Allergy Reactions Criticality Noted Date Comments Methimazole Other (See Comments) 07/01/2024 Mouth sores Medications levETIRAcetam (KEPPRA XR) 500 mg Oral Tablet Sustained Release 24 hr Take 1,000 mg by mouth nightly. 05/01/2021 Active folic acid (FOLVITE) 400 mcg Oral Tablet Take 800 mcg by mouth daily. 05/27/2020 Active norgestimate-et hinyl estradioL (ORTHO-CYCLEN) 0.25-35 mg-mcg Oral Tablet Take 1 Tablet by mouth daily. 05/01/2021 Active cyanocobalamin, vitamin B-12, (VITAMIN B-12 ORAL) Take by mouth. Active ferrous sulfate (IRON, FERROUS SULFATE,) 325 mg (65 mg iron) Oral Tablet Take 1 Tablet by mouth daily. Take with food 30 Tablet 5 04/05/2024 Active fluticasone propionate (FLONASE) 50 mcg/actuation Nasl [place], Suspension 1 spray(s) in each nostril Two times a day 07/29/2021 Active metoprolol succinate (TOPROL-XL) 25 mg Oral Tablet Sustained Release 24 hr Take 12.5 mg by mouth daily. Active vitamin D3-folic acid 500 unit- 1 mg Oral Tablet Take 1 Capsule by mouth daily. Active Active Problems Problem Noted Date Diagnosed Date Thyroid nodule 07/29/2024 Assessment & Plan (07/29/2024 4:53 PM EST): will repeat thyroid u/s about one year from previous if anterior neck sx, will repeat sooner Iron deficiency 07/29/2024 Tremor 07/01/2024 Assessment & Plan (07/02/2024 7:02 PM EST): will check several labs to r/o significant issues sx seem to be episodic/intermittent Chronic fatigue 07/01/2024 Assessment & Plan (07/29/2024 4:57 PM EST): discussed trial mag supplement also her glucose random was 115 but that was after eating carbs A1c was 5.0% due to diffuse famhx of DM, advise dietary changes, decreased sugars and simple carbs Hyperthyroidism 03/21/2024 Assessment & Plan (07/29/2024 4:52 PM EST): repeat labs for thyroid levels have continually improved did trial of two doses methimazole with throat swelling no indication to treat at this time, no hyperthyroidism currently present Assessment & Plan (07/01/2024 2:02 PM EST): check repeat labs today for thyroid levels due to worsened sx, presumptively treat with methimazole 5mg daily, discussed risks and benefits Assessment & Plan (05/09/2024 5:13 PM EST): check repeat labs today for thyroid levels due to worsened sx, presumptively treat with methimazole 5mg daily, discussed risks and benefits Assessment & Plan (03/22/2024 9:10 AM EDT): will obtain outside records, labs, and ultrasound, for review discussed potential etiologies of hyperthyroidism check repeat labs today for thyroid levels, as well as thyroid antibodies Vitamin D deficiency 03/21/2024 Assessment & Plan (07/29/2024 4:53 PM EST): cont maintenance supplement Assessment & Plan (05/09/2024 5:13 PM EST): cont to supplement level>40 will be important to mitigate thyroid inflammation Assessment & Plan (03/22/2024 9:10 AM EDT): check level and replete as necessary level>40 will be important to mitigate thyroid inflammation Cold intolerance 03/21/2024 Assessment & Plan (03/22/2024 9:10 AM EDT): check ferritin level and optimize thyroid 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 Date Comments Seizure (HCC) Family History 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 Relation Name Comments Bipolar Disorder Father High Blood Pressure Maternal Grandfather Kidney Disease Maternal Grandfather Thyroid Cancer Maternal Grandfather Diabetes Maternal Grandmother High Blood Pressure Maternal Grandmother Diabetes Mother High Blood Pressure Mother Relation Name Status Comments Father Maternal Grandfather Maternal Grandmother Mother Social History Tobacco Use Types Packs/Day Years Used Date Smoking Tobacco: Never Smokeless Tobacco: Never Tobacco Cessation:Counseling Given: Not Answered Alcohol Use Standard Drinks/Week Comments Never 0 (1 standard drink = 0.6 oz pur e alcohol) Comments Unknown Sex and Gender Information Value Date Recorded Sex Assigned at Not on file Legal Sex Female 9:19 AM EDT Gender Identity Not on file Sexual Orientation Not on file Obstetrics History Last Filed Vital Signs Vital Sign Reading Time Taken Comments Blood Pressure 102/50 07/29/2024 4:11 PM EST Pulse 78 07/29/2024 4:11 PM EST Temperature - - Respiratory Rate 18 07/29/2024 4:11 PM EST Oxygen Saturation - - Inhaled Oxygen Concentration - - Weight 93.9 kg (207 lb) 07/29/2024 4:11 PM EST Height 170.2 cm (5' 7 ) 07/29/2024 4:11 PM EST Body Mass Index 32.42 07/29/2024 4:11 PM EST Plan of Treatment Upcoming Encounters Date Type Department Care Team (Late st Contact Info) Description 01/29/2025 4:30 PM EDT Office Visit [facility] [place] [address] [place] [address] Pati Ann MD [address] [place] [address] Health Maintenance Due Date Last Done Comments Annual Wellness Exam 2005 Meningococcal B Vaccine (1 of 2 - Standard) 2018 DTaP/TDaP/Td (1 - Tdap) 2021 Hepatitis B Vaccine (1 of 3 - 19+ 3-dose series) 2021 Cervical Cancer Screening 2023 Pap Smear 2023 COVID-19 Vaccine ( season) 2024 06/26/2021, 10/10/2020, 09/19/2020 Influenza Vaccine (#1) 2025 , 04/01/2020, 04/05/2019, Additional history exists HPV Completed 01/08/2018, 09/10, 07/04/2017 Pneumococcal Vaccine 0-49 Aged Out No longer eligible based on patient's age to complete this topic Insurance [facility] [employer] [id number] JEREMY PPO [facility] [employer] [id number] JEREMY PPO Care Teams Engineering Administrator Relationship Specialty Start Date End Date Joey Lora MD [address] [place] [address] [place] [address] [place] [phone] PCP - General Family Medicine 07/01/24
--- OUTSIDE RECORDS SUMMARY | 2025-01-23 15:55 | XMS_ITS | Encounter Summary ---
Author Organization Healthcare Address [address] [place] [address] Care Team Providers Care Vending Technician Name Role Phone Joey Lora MD Primary Care Provider [phone] Encounter Details Date Type Department Care Team (Late Contact Info) Description 01/01/2025 Orders Only [place] [facility] [address], [address] [place] [address] Marie Steinberg MD [address] [place] [address] Nonintractable focal epilepsy (CMS/HCC) (Primary Dx) Social History Tobacco Use Types [...] Progress Notes - Marie Steinberg MD - 01/01/2025 10:47 AM EDT BMP and levetiracetam level ordered. Lab requisition forms to be mailed to patient. documented in this encounter Plan of Treatment Upcoming Encounters Date Type Department Care Team (Late st Contact Info) Description 04/24/2025 2:00 PM EST Office Visit [facility] [place] [address] [place] [address] Sanaz Means MD [address] [place] [address] 01/16/2026 11:00 AM EDT Office Visit [facility] Endocrinology [address] [place] [address] Tapan Ybarra MD [address] [facility] [address] [place] [address] documented as of this encounter Results * Basic metabolic panel (01/10/2025 12:23 PM EDT) Glucose, Plasma 89 74 - 99 mg/dL 01/10/2025 2:35 PM EDT [facility] BUN, Plasma 11 7 - 21 mg/dL 01/10/2025 2:35 PM EDT [facility] Creatinine, Plasma 0.74 0.60 - 1.10 mg/dL 01/10/2025 2:35 PM EDT [facility] BUN/Creatinine Ratio 15 01/10/2025 2:35 PM EDT [facility] Sodium, Plasma 138 136 - 145 mmol/L 01/10/2025 2:35 PM EDT [facility] Potassium, Plasma 4.3 3.6 - 4.9 mmol/L 01/10/2025 2:35 PM EDT [facility] Chloride, Plasma 102 97 - 107 mmol/L 01/10/2025 2:35 PM EDT [facility] CO2, Plasma 27 22 - 29 mmol/L 01/10/2025 2:35 PM EDT [facility] Anion Gap 9 6 - 16 mmol/L 01/10/2025 2:35 PM EDT [facility] Total Calcium, Plasma 9.5 8.9 - 10.2 mg/dL 01/10/2025 2:35 PM EDT [facility] eGFRcr 117.5 mL/min/1.7 3m*2 01/10/2025 2:35 PM EDT [facility] Comment:Reported eGFRcr in m L/min/1.73m2 is based the CKD-EPI 2020 equation that does not use a race coefficient. Blood Venous blood specimen / Unknown Venipuncture / Unknown 01/10/2025 12:23 PM EDT 01/10/2025 12:23 PM EDT us Marie Steinberg MD LAB BLOOD ORDERABLES Final Resul t Performing Organization Address [facility] de Phone Number [facility] [address] [place] [address] * Levetiracetam level (01/10/2025 12:23 PM EDT) Levetiracetam (Keppra) 13.4 12.0 - 46.0 ug/mL 01/14/2025 7:[address] [facility] Blood Venous blood specimen / Unknown Venipuncture / Unknown 01/10/2025 12:23 PM EDT 01/10/2025 12:23 PM EDT Narrative [facility] - 01/14/2025 7:11 PM EDT Test performed by LC-MS/MS at the [facility]. This test was developed and its performance characteristics determined by [facility]. It has not been cleared or approved by the FDA. The laboratory is regulated under CLIA as qualified to perform high-complexity testing. This test is used for clinical purposes. us Marie Steinberg MD LAB BLOOD ORDERABLES Final Resul t Performing Organization Address [facility] Co de Phone Number [facility] [address] [place] [phone] documented in this encounter Visit Diagnoses Diagnosis Nonintractable focal epilepsy (CMS/HCC)- Primary documented in this encounter Additional Health Concerns Assessment Noted Time A fall risk assessment has been complete d for the patient 03/18/2024 8:02 AM EDT A Body Mass Index follow-up plan has been documented for the patient 10/05/2024 9:50 AM EDT documented as of this encounter Care Teams Vending Technician Relationship Specialty Start Date End Date Joey Lora MD [address] [place] [address] PCP - General 10/23/20 documented as of this encounter
--- OUTSIDE RECORDS SUMMARY | 2025-01-23 15:56 | XMS_ITS | Clinical Summary ---
Author Organization [facility] ([place], [place], [place], [place]) Address [address] [place] [address] Care Team Providers Care Medical Office Asst Name Role Phone Joey Lora MD Primary Care Provider [phone] Allergies Active Allergy Reactions Criticality Noted Date Comments Methimazole Anaphylaxis High 12/19/2024 Medications norgestimate-et hinyl estradioL (ORTHO-CYCLEN) 0.25-0.035 mg per tablet TAKE 1 TABLET BY MOUTH DAILY; Duration: 84 Active pediatric lbchaqrb-pnsi-d in (flintstones complete) chew Take by mouth. Active b complex vitamins tablet Take 1 tablet by mouth daily. Active levETIRAcetam XR (KEPPRA XR) 750 mg Tb24 Take 2 tablets (1,500 mg total) by mouth daily. 10/05/2024 01/04/20 Encounters Date Type Department Care Team Description 12/19/2024 12:30 PM EDT - 12/19/2024 11:59 PM EDT Hospital Encounter [facility] Procedure Lab [address] [place] [address] Marie Steinberg MD Syncope Discharge Disposition: Home or Self Care 12/19/2024 Travel from Last 3 Months Social History Tobacco Use Types Packs/Day Years [...] Mass Index 32.28 12/19/2024 12:56 PM EDT Plan of Treatment Health Maintenance Due Date Last Done Comments Depression Screening (12+) 2014 HIV Screening 2017 Meningococcal B Vaccine (1 o f 2 - Standard) 2018 Hepatitis C Screening 2020 DTAP/TDAP/TD VACCINES (1 - Tdap) 2021 Lipid Panel 2022 Pap Smear 2023 COVID-19 VACCINE (4 - 2023-2 5 season) 2024 06/26/2021, 10/10/2020, 09/19/2020 Influenza Vaccine (#1) 2025 Tobacco Cessation Counseling and Screening (12+) 12/19/2025 12/19/2024 Pneumococcal Vaccine: 0-49 Years Aged Out No longer eligible b ased on patient's age to complete this topic Procedures Procedure Name Priority Date/Time Associated Diagnosis Comments TILT TABLE Routine 12/19/2024 2:55 PM EDT Syncope from Last 3 Months Results * Tilt table (12/19/2024 2:55 PM [...] CV CARDIAC SERVICES ORDER ANTONIETA Final Result from Last 3 Months Insurance BLUE CROSS/BLUE SHIELD Care Teams Medical Office Asst Relationship Specialty Start Date End Date Joey Lora MD [address] [facility] [address] [place] [phone] PCP - General Family Medicine 12/19/24
--- OUTSIDE RECORDS SUMMARY | 2025-01-23 15:56 | XMS_ITS | Encounter Summary ---
Author Organization Healthcare Address [address] [place] [address] Care Team Providers Care Field Director Name Role Phone Joey Lora MD Primary Care Provider [phone] Encounter Details Date Type Department Care Team (Latest Contact Info) Description 01/10/2025 Travel Social History Tobacco Use Types Packs/Day [...] Description 04/24/2025 2:00 PM EST Office Visit [facility] [place] [address] [facility]. [address] [place] [address] Sanaz Means MD [address] [place] [address] 01/16/2026 11:00 AM EDT Office Visit [facility] [address] [place] [address] Tapan Ybarra MD [address] [address] documented as of this encounter Visit Diagnoses Not on filedocumented in this encounter Additional Health Concerns Assessment Noted Time A fall risk assessment has been complete d for the patient 03/18/2024 8:02 AM EDT A Body Mass Index follow-up plan has been documented for the patient 01/14/2025 10:04 AM EDT documented as of this encounter Care Teams Field Director Relationship Specialty Start Date End Date Joey Lora MD [address] [place] [address] [place] [address] PCP - General 10/23/20 documented as of this encounter
--- OUTSIDE RECORDS SUMMARY | 2025-01-23 15:56 | XMS_ITS | Encounter Summary ---
Author Organization [employer] ([place], [place], [place], [place]) Address [address] [place] [address] Care Team Providers Care Puff Iron Operator Name Role Phone Joey Lora MD Primary Care Provider + [phone] Encounter Details Date Type Department Care Team (Latest Contact Info) Description 12/19/2024 Travel Social History Tobacco Use Types Packs/Day [...] on file documented as of this encounter Visit Diagnoses Not on filedocumented in this encounter Care Teams Puff Iron Operator Relationship Specialty Start Date End Date Joey Lora MD [address] [facility] [address] [place] [address] PCP - General Family Medicine 12/19/24 documented as of this encounter
--- OUTSIDE RECORDS SUMMARY | 2025-01-23 15:56 | XMS_ITS | Encounter Summary ---
Author Organization Healthcare Address [address] [place] [address] Care Team Providers Care Building Dismantler Name Role Phone Joey Lora MD Primary Care Provider [phone] Encounter Details Date Type Department Care Team (Late st Contact Info) Description 01/14/2025 Results Follow-Up [facility] Endocrinology [address] [place] [address] Tapan Ybarra MD [address] [address] Social History Tobacco Use Types Packs/Day Years [...] Description 04/24/2025 2:00 PM EST Office Visit [facility] [place] [facility] [address] [facility]. [address] [place] [address] Sanaz Means MD [address] [place] [address] 01/16/2026 11:00 AM EDT Office Visit [facility] Endocrinology [address] [place] [address] Tapan Ybarra MD [address] [place] [address] documented as of this encounter Visit Diagnoses Not on filedocumented in this encounter Additional Health Concerns Assessment Noted Time A fall risk assessment has been complete d for the patient 03/18/2024 8:02 AM EDT A Body Mass Index follow-up plan has been documented for the patient 01/14/2025 10:04 AM EDT documented as of this encounter Care Teams Building Dismantler Relationship Specialty Start Date End Date Joey Lora MD [address] [address] PCP - General 10/23/20 documented as of this encounter
--- OUTSIDE RECORDS SUMMARY | 2025-01-23 15:56 | XMS_ITS | Referral Summary ---
Author Organization [employer] ([place], [place], [place], [place]) Address [address] [place] [address] Care Team Providers Care Car Servicer Name Role Phone Joey Lora MD Primary Care Provider + [phone] Encounters Date Type Department Care Team Description 12/19/2024 Travel 12/19/2024 12:30 PM EDT - 12/19/2024 11:59 PM EDT Hospital Encounter [facility] Procedure Lab [address] [place] [address] Marie Steinberg MD Syncope Discharge Disposition: Home or Self Care from Last 3 Months Allergies Active Allergy Reactions Criticality Noted Date Comments Methimazole Anaphylaxis High 12/19/2024 Medications norgestimate-et hinyl estradioL (ORTHO-CYCLEN) 0.25-0.035 mg per tablet TAKE 1 TABLET BY MOUTH DAILY; Duration: 84 Active pediatric sjiagovu-rkrv-d in (flintstones complete) chew Take by mouth. Active b complex vitamins tablet Take 1 tablet by mouth daily. Active levETIRAcetam XR (KEPPRA XR) 750 mg Tb24 Take 2 tablets (1,500 mg total) by mouth daily. 10/05/2024 01/04/20 Social History Tobacco Use Types Packs/Day Years [...] 12/19/2024 12:56 PM EDT Plan of Treatment Not on file Procedures Procedure Name Priority Date/Time Associated Diagnosis [...] Final Result from Last 3 Months Insurance Samir EWA [place] [id number] BLUE CROSS/BLUE SHIELD Care Teams Car Servicer Relationship Specialty Start Date End Date Joey Lora MD 1210 [facility] [address] [place] [address] PCP - General Family Medicine 12/19/24
--- OUTSIDE RECORDS SUMMARY | 2025-01-23 15:56 | XMS_ITS | Encounter Summary ---
Author Organization Healthcare Address [address] [place] [address] Care Team Providers Care Magnetic Tape Winder Name Role Phone Joey Lora MD Primary Care Provider [phone] Reason for Visit * Reason Onset Date Comments HCN - Patient Message 01/10/2025 Encounter Details Date Type Department Care Team ([facility] st Contact Info) Description 01/10/2025 Telephone [facility] [place] [address] [facility], [address] [place] [address] None, None [address] [place] [address] HCN - Patient Message Social History Tobacco Use Types Packs/Day Years [...] encounter Miscellaneous Notes * Telephone Encounter - Ewa Kurtz - 01/10/2025 1:29 PM EDT Patient Phone Message Reason for Call: Pt is requesting a call to obtain the status of referral. Best contact number and optimal time of day to reach caller: [phone] Note: Please do not reply to this message. Follow-up communication and further actions as a result of this message need to be communicated with the patient directly, if the patient is not active onMyChart. If the patient is active on MyChart, they will receive notification of the communication/outcome via MyChart. documented in this encounter Plan of Treatment Upcoming Encounters Date Type Department Care Team (Late st Contact Info) Description 04/24/2025 2:00 PM EST Office Visit [facility] [place] [facility] [address] [place] [address] Sanaz Means MD [address] [place] [address] 01/16/2026 11:00 AM EDT Office Visit [facility] [address] [place] [address] Tapan Ybarra MD [address] [address] documented as of this encounter Visit Diagnoses Not on filedocumented in this encounter Additional Health Concerns Assessment Noted Time A fall risk assessment has been complete d for the patient 03/18/2024 8:02 AM EDT A Body Mass Index follow-up plan has been documented for the patient 01/14/2025 10:04 AM EDT documented as of this encounter Care Teams Magnetic Tape Winder Relationship Specialty Start Date End Date oJey Lora MD 1210 [facility] [address] [place] [address] PCP - General 10/23/20 documented as of this encounter
--- OUTSIDE RECORDS SUMMARY | 2025-01-23 15:56 | XMS_ITS | Encounter Summary ---
Author Organization Healthcare Address [address] [place] [address] Care Team Providers Care Admissions Counselor Name Role Phone Joey Lora MD Primary Care Provider [phone] Encounter Details Date Type Department Care Team (Late st Contact Info) Description 01/10/2025 Orders Only External Location [address] [place] [address] Provider, External Social History Tobacco Use Types [...] Description 04/24/2025 2:00 PM EST Office Visit [facility] [place] [facility] [address] [facility]. [address] [place] [address] Sanaz Means MD [address] [place] [address] 01/16/2026 11:00 AM EDT Office Visit [facility] [address] [place] [address] Tapan Ybarra MD [address] [address] documented as of this encounter Procedures Procedure Name Priority Date/Time Associated Diagnosis Comments POC ULTRASOUND 01/10/2025 documented in this encounter Results * POC Imaging (01/10/2025) Anatomical Region Laterality Modality Pelvis Other 01/10/2025 us External Provider IMG POINT OF CARE ULTRASOUND F inal Result documented in this encounter Visit Diagnoses Not on filedocumented in this encounter Additional Health Concerns Assessment Noted Time A fall risk assessment has been complete d for the patient 03/18/2024 8:02 AM EDT A Body Mass Index follow-up plan has been documented for the patient 01/14/2025 10:04 AM EDT documented as of this encounter Care Teams Admissions Counselor Relationship Specialty Start Date End Date Joey Lora MD [address] [place] [address] PCP - General 10/23/20 documented as of this encounter
--- OUTSIDE RECORDS SUMMARY | 2025-01-23 15:56 | XMS_ITS | Patient Health Record ---
Author Organization [facility] Address [address] [place] [id number] Care Team Providers Care Skoog Machine Operator Name Role Phone Geno Joey Primary Care Provider Tammy Kelley Unavailable [phone] Lanny Whitehead Unavailable [phone] Allergies Allergen (clinical drug ingredient) Drug/Non Drug [...] - 38 plat 266 100 - 400 ultrasound : thyroid Reviewed date:10/03/2024 12:49:56 PM Interpretation:stable, no f/u recommended Performing Lab: Notes/Report: stable, no f/u recommended P-TSH Receptor Binding Antib joleen Reviewed date:09/25/2024 12:38:30 PM Interpretation:Normal Performing Lab: Notes/Report: Test performed by [facility], [facility] [address] [place] [address] , [address], [place] [address] Kosta Tucker MD, Pole Shaver Helper CLIA: [id number] TSH Receptor Binding Antibody <1.1 <1.76 IU/L P-Levetiracetam Reviewed date:09/26/2024 04:51:08 PM Interpretation:Low normal Performing Lab: Notes/Report: Levetiracetam 10 10-40 ug/mL INTERPRETIVE INFORMATION: Keppra (Levetiracetam) Therapeutic Range: 10-40 ug/mL Toxic: Not well Established Pharmacokinetics of levetiracetam are affected by renal function. Adverse effects may include somnolence, weakness, headache and vomiting. This levetiracetam (Keppra) immunoassay uses the [employer] reagents, which has known cross-reactivity with the drug brivaracetam (Briviact) and may report inaccurate results. Patients transitioning from levetiracetam to brivaracetam or those who are using both medications should not monitor drug concentrations with the [employer] assay. These patients should be monitored using a validated chromatographic methodology that distinguishes between drugs to determine drug concentrations. Performed By: [facility] [address] [place] [address] Pole Shaver Helper: Darnell Mojica MD, PhD CLIA Number: [id number] P-Comprehensive Metabolic Pa carlton (CMP) Reviewed date:09/25/2024 12:38:30 PM Interpretation:Normal Performing Lab: Notes/Report: Test performed by [facility], [address] , [address], [place] [address] Kosta Tucker MD, Pole Shaver Helper CLIA: [id number] Sodium 138 135-145 mmol/L Potassium 4.2 3.5-5.3 [...] 0.6 <0.2-1.2 mg/dL A/G Ratio 1.5 1.1-2.5 P-Thyroglobulin Antibody Reviewed date:09/25/2024 12:38:30 PM Interpretation:Normal Performing Lab: Notes/Report: Test performed by [facility] [address] [place] [address] [place] [address] Kosta Tucker MD, Pole Shaver Helper CLIA: [id number] Thyroglobulin Antibody 18.2 <10-115.0 IU/mL The test is performed by the [employer] ECLIA methodology. Values obtained with different assay methods or kits cannot be directly compared. P-Thyroid Peroxidase Antibod y Reviewed date:09/25/2024 12:38:30 PM Interpretation:Normal Performing Lab: Notes/Report: Test performed by [facility] [address] [place], [place] [address] [place] [address] Kosta Tucker MD, Pole Shaver Helper CLIA: [id number] Thyroid Peroxidase Antibody 12 <9-34 IU/mL An elevated Thyroid Peroxidase Antibody should not be used alone to make the diagnosis of autoimmune thyroid disease. A result of <34 IU/mL does not definitively rule out the possibility of autoimmune thyroid disease. CBC Venipuncture (in house) Reviewed date:09/29/2024 05:34:39 PM Interpretation:not performed, see 09/24/2024 Performing Lab: Notes/Report: not performed, see 09/24/2024 ultrasound : thyroid Reviewed date:03/12/2024 08:53:37 AM Interpretation:chronic thyroiditis, multiple small cysts Performing Lab: Notes/Report: chronic thyroiditis, multiple small cysts P-Vitamin D 25-Hydroxy Reviewed date:03/12/2024 08:53:37 AM Interpretation:34.3 Performing Lab: Notes/Report: Test performed by [facility] [address] [place] [address] [place] [address] Kosta Tucker MD, Pole Shaver Helper CLIA: [id number] Vitamin D 25-Hydroxy 34.3 30.0-100.0 ng/mL Interpretation of Vitamin D 25 [place]: < 20 ng/mL - Deficiency 20 - 29 ng/mL - Insufficiency 30 - 100 ng/mL - Sufficiency > 100 ng/mL - Super-therapeutic- toxicity may occur above this level. Clinical correlation required. P-Vitamin B12 Reviewed date:03/12/2024 08:53:37 AM Interpretation:>2000 Performing Lab: Notes/Report: Test performed by [facility], [facility] [address] [place] [address] , [address], [place] [address] Kosta Tucker MD, Pole Shaver Helper CLIA: [id number] Vitamin B12 >2000 232-1245 pg/mL CBC Fingerstick (in house) Reviewed date:09/25/2024 12:38:30 [...] - 38 plat 216 100 - 400 CBC Fingerstick (in house) Reviewed date:09/13/2024 04:23:29 [...] - 38 plat 202 100 - 400 CBC Venipuncture (in house) Reviewed date:01/09/2025 08:07:12 [...] vomiting. This levetiracetam (Keppra) immunoassay uses the [employer] reagents, which has known cross-reactivity with the drug brivaracetam (Briviact) and may report inaccurate results. Patients transitioning from levetiracetam to brivaracetam or those who are using both medications should not monitor drug concentrations with the [employer] assay. These patients should be monitored using a validated chromatographic methodology that distinguishes between drugs to determine drug concentrations. Performed By: [facility] [address] [place], [place] [id number] Pole Shaver Helper: Darnell Mojica MD, PhD CLIA Number: [id number] CBC Fingerstick (in house) Reviewed date:09/10/2024 12:35:06 [...] - 38 plat 245 100 - 400 Urinalysis - Inhouse Reviewed date:06/03/2024 05:45:03 PM Interpretation:Normal Performing Lab: Notes/Report: Normal Color/Clarity yellow/clear Leuk Neg Nitrite Neg Urobili 3.2 Protein Neg pH 5.5 Blood Neg Sp. Gr. >=1.030 Ketone Neg Bili Neg Gluc Neg Reason For Referral Diagnosis 1 Thyromegaly (E04.9) Referral Organization [facility] Referring Provider First Name Tammy Hendricks Referring Provider Last Name Warren Referring Provider [facility] Referred Provider Specialty Endocrinolog y General Notes Fernanda Moses 03/12/20 24 10:45:48 AM > faxed to [facility] Referral Priority Routine Medications Medication SIG (Take, Route, Frequency, Duration) Notes Start Date End Date Status Benefiber - as directed orally 2 times a day OTC 09/30/2021 Active Benzonatate 200 MG 1 capsule Orally Three times a day As needed 01/08/2025 Active Folic Acid 1 MGM 1 TAB QD; Duration: 30 DAYS Active Magnesium 400 MG as directed Orally Active Keppra 750 MG 1 tab in the AM, 2 t abs in the PM orally; Duration: 90 days Active Vitamin B12 1000 MCG 1 tablet Orally Onc e a day Active Norgestimate-Eth Estradiol 0.25-35 MG-MCG TAKE 1 TABLET BY MOUTH DAILY; Duration: 84 Active SUMAtriptan Succinate 100 MG 1 tablet as needed, may take second dose at least 2 hours after first dose up to 2 tablets per day as needed Orally 09/23/2024 Active Fluticasone Propionate 50 MCG/ACT 1 spray(s) in each nostril Two times a day 07/29/2021 Active Immunizations Vaccine Route Administration Date Status Eleazar persaud COVID 19 Pfizer Unknown 09/19/2020 Administered COVID 19 Pfizer Unknown 10/10/2020 Administered Fluzone Quad (6months&older) IM Intramuscular 04/14/2015 Administered Fluzone Quad (6months&older) IM Intramuscular 03/22/2016 Administered Fluzone Quad (6months&older) IM Intramuscular 03/11/2017 Administered Fluzone Quad (6months&older) IM Intramuscular 04/04/2018 Administered Given by MP Fluzone Quad (6months&older) IM Intramuscular 04/05/2019 Administered Fluzone Quad (6months&older) IM Intramuscular 04/01/2020 Administered Fluzone Quad (6months&older) IM Intramuscular 05/02/2022 Administered Fluzone Quad (6months&older) IM Intramuscular 03/27/2023 Administered Gardasil 9 IM Intramuscular 07/04/2017 Administered Gardasil 9 IM Intramuscular 09/22/2017 Administered Gardasil 9 IM Intramuscular 01/08/2018 Administered H1N1 flu vaccine IM Intramuscular 05/18/2009 Administered Hep A- Pediatric IM Intramuscular 07/04/2017 Administered Hep A- Pediatric IM Intramuscular 01/08/2018 Administered Menactra IM Intramuscular 05/13/2013 Administered Menactra IM Intramuscular 07/25/2018 Administered ppd ID Intradermal 07/25/2023 Administered Tetanus Tdap-Adacel (over 7yrs) IM Intramuscular 05/13/2013 Administered tuberculin (ppd) ID Intradermal 09/14/2020 Administered Varivax SC Subcutaneous 05/13/2013 Administered xFlu shot-36 months and older IM Intramuscular 04/16/2008 Administered xFlu shot-36 months and older IM Intramuscular 04/20/2009 Administered xFlu shot-36 months and older IM Intramuscular 03/24/2010 Administered xFlumist (intranasally age 2yr-49yr)-trivalent NS Nasal 04/17/2014 Administered xFluzone (6mos and older)-trivalent IM Intramuscular 04/09/2012 Administered xFluzone (6mos and older)-trivalent IM Intramuscular 05/13/2013 Administered xGardasil IM Intramuscular 05/13/2013 Administered Problems Problem Type SNOMED Code ICD Code Onset Dates Problem Status W/U Status Risk Notes Problem Attention deficit hyperactivity disorder, combined type (70659914) Attention deficit hyperactivity disorder, combined type (314.01) Active confirmed Problem Otitis externa (6278161) Otitis externa (H60.90) Active confirmed Problem Hyperthyroidism (18977437) Hyperthyroidism (E05.90) Active confirmed Problem BMI 30+ - obesity (328203955) BMI 32.0-32.9,adult (Z68.32) Active confirmed Problem Thyromegaly (8515695) Thyromegaly (E04.9) Active confirmed Problem Seizure disorder (364691068) Seizure disorder (G40.909) Active confirmed Problem ADHD - Attention deficit disorder with hyperactivity (867320610) Attention deficit disorder with hyperactivity (F90.9) Active confirmed Problem Constipation (52709265) Constipation, unspecified constipation type (K59.00) Active confirmed Problem Pain in coccyx (finding) (34319639) Coccygeal pain (M53.3) Active confirmed Problem Thyromegaly (0602314) Thyromegaly (E01.0) Active confirmed Problem Allergic rhinitis (50543323) Allergic rhinitis, unspecified seasonality, unspecified trigger (J30.9) Active confirmed Problem Chronic thyroiditis (88728744) Chronic thyroiditis (E06.5) Active confirmed Vital Signs Heart Rate 102 /min 01/08/2025 Blood pressure diastolic 64 mm Hg 01/08/2025 Height 67.25 in 01/08/2025 Blood pressure systolic 114 mm Hg 01/08/2025 Weight 203 lbs 01/08/2025 BMI 31.55 kg/m2 01/08/2025 Encounters Encounter Location Date Provider Diagnosis [facility] [address] [place], [place] [id number] 03/04/2024 R Eladio Warren Fatigue R53.83 ; Hyperthyroidism E05.90 and Thyromegaly E04.9 [facility] [address] [facility] [address] [place], [place] [id number] 06/03/2024 Joey Corrales Pelvic pain R10.2 an d Coccygeal pain M53.3 [facility] [address] [facility] [address] [place], [place] [id number] 06/11/2024 R Eladio Warren Hyperthyroidism E05. 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 Z79.899 and BMI 32.0-32.9,adult Z68.32 [facility] [address] [place], [place] [id number] 09/24/2024 Joey Corrales Acute upper respirat ory infection, unspecified J06.9 [facility] [address] [facility] [address] [place], [place] [id number] 10/30/2024 Lanny Crowdy Acute URI J06.9 [facility] [address] [facility] [address] [place] [id number] 01/08/2025 Joey Corrales Acute URI J06.9 ; Seizure disorder G40.909 and ferry terminal agent use of drug Z79.899 [facility] [address] [place], [place] [id number] 03/12/2024 R Eladio Kelley Enlarged thyroid E04 .9 and Thyromegaly E04.9 [facility] [address] [place] [id number] 03/19/2024 Joey Corrales [facility] [address] [place] [id number] 09/16/2024 Joey Corrales [facility] [address] [place] [id number] 09/23/2024 Joey Corrales [facility] [address] [place] [id number] 10/03/2024 Joey Corrales [facility] [address] [place] [id number] 01/13/2025 Joey Corrales [facility] [address] [place] [id number] 01/16/2025 Joey Corrales [facility] [address] [place] [id number] 08/14/2024 Joey Corrales [facility] [address] [place] [id number] 08/15/2024 Joey Corrales [facility] [address] [place] [id number] 08/21/2024 Joey Corrales Assessments Encounter Date Diagnosis (ICD Code) Assessment Notes Treatment Notes Treatment Clinical Notes Section Notes 03/12/2024 Enlarged thyroid (ICD-10 - E04.9) 03/12/2024 Thyromegaly (ICD-10 - E04.9) 06/03/2024 Pelvic pain (ICD-10 - R10.2) 06/03/2024 Coccygeal pain (ICD-10 - M53.3) Insurance is still denying to cover caudal epidural with pain management 06/11/2024 Hyperthyroidism (ICD-10 - E05.90) Start low-dose beta-umm for symptom management. Keep follow-up appoint with endocrinology in 09/09/2024 Acute URI (ICD-10 - J06.9) 09/09/2024 Chronic thyroiditis (ICD-10 - E06.5) 09/13/2024 Acute URI (ICD-10 - J06.9) 03/04/2024 Fatigue (ICD-10 - R53.83) 03/04/2024 Hyperthyroidism (ICD-10 - E05.90) 09/23/2024 Blurred vision (ICD-10 - H53.8) Patient could be having a migraine headache, call with any new symptoms 09/23/2024 Persistent cough (ICD-10 - R05.3) 10/30/2024 Acute URI (ICD-10 - J06.9) 01/08/2025 Seizure disorder (ICD-10 - G40.909) 01/08/2025 Acute URI (ICD-10 - J06.9) 01/08/2025 ferry terminal agent use of drug (ICD-10 - Z79.899) 09/23/2024 Chronic thyroiditis (ICD-10 - E06.5) 09/24/2024 Acute upper respiratory infection, unspecified (ICD-10 - J06.9) 03/04/2024 Thyromegaly (ICD-10 - E04.9) 09/23/2024 Thyromegaly (ICD-10 - E01.0) 09/23/2024 ferry terminal agent 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 (ICD-10 - Z79.899) 09/23/2024 BMI 32.0-32.9,adult (ICD-10 - Z68.32) Plan Of Treatment No Information Insurance Providers Payer Name Payer Address Payer Phone Subscriber Number Group Number Insured Name Patient Relationship to Insured Coverage Start Date Coverage End Date [facility] [address] [place] [address] [id number] TIANA ESPINO Self - patient is the insured Medical (General) History 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 History ICD Code Seizures ADHD-Hyperactive/Impulsive Cardiac Murmur hyperthyroidism - followed by endo Surgical History Surgery Date(Month/Year) Hospitalization History Reason Date(Month/Year) [facility] ER - Extreme Fatigue 03/03/2024 LT Foot Tendon Tear- Sports Medicine 03/21/2017 Tegretol Toxicity 08/2008
--- NOTE | 2025-01-23 16:17 | EXP.PAIN.SOA ---
[facility] Disclaimer: The information contained in this section may have been updated after the patient was seen, as this information can be updated by other users. 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 (Updated 01/23/25 @ 16:19 by Trini Vasquez APRN) Epilepsy Seizures Seasonal allergies Surgical History Surgical history unknown Family History (Updated 09/09/24 @ 15:35 by MUMTAZ Gonzalez) Grandmother Cancer Other Hypertension Social History Smoking Status: Never smoker alcohol intake: never current occupational status: other Travel in the last 8 weeks?: None housing: house Have you lived/traveled outside US in past 30 days?: No Contact w/someone who lives/traveled outside US past 30 days?: No Exposure to someone with infectious disease in past 14 days?: No Do you have a fever (greater than 100.4 F or 38 C)?: No Have you tested positive for COVID-19?: No Exposed to someone with COVID-19 in past 14 days?: No Do you have a sore throat?: No Do you have a cough?: No Do you have any weakness?: No Do you have any diarrhea?: No Are you experiencing any unusual bleeding?: No Do you have any muscle aches/pain?: No Do you have any abdominal pain?: No Are you experiencing loss of taste or smell?: No PM Subjective & Objective Subjective Subjective:: Patient is a pleasant 24-year-old female who presents today for worsening pain that we have seen her in the past for her. Patient rates it a 6 out of 10. She states that it is still all around her buttocks and tailbone area and that is pretty much constant with prolonged positioning. 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 Patient describes it as a sharp shooting pain that does radiate out. Patient has tried conservative therapy including oral medication, heat and ice, topicals, physical therapy, chiropractor therapy and continued exercise and stretching for longer than 12 weeks that was physician guided. Patient has been submitted for these injections and has continued to get denials from her insurance. Patient does state today that she did end up getting the dominguez pay griggs which was rather expensive but would like to proceed forward as nothing is seeming to make improvement. Her Gray has been reviewed and is appropriate. Review of Systems: General: No recent weight changes, no fever, no sleep disturbances Respiratory: No cough, no shortness of air, no recurring pulmonary infections Cardiovascular/peripheral vascular: No chest pain, no palpitations, no edema, no shortness of breath Gastrointestinal: No new onset incontinence, normal bowel movements reported Genitourinary: No new onset incontinence Musculoskeletal: Chronic buttock/tailbone pain Psychiatric: [Normal mood/affect] Neurological: [Denies weakness in extremities], [denies balance issues] Pain at rest (0-10 scale): 6 Objective Objective:: Physical Exam: General: Alert and oriented x3, no acute distress, pleasant and cooperative Lungs: Respirations even and unlabored, symmetrical chest expansion Eyes: PERRL Musculoskeletal: Flexion and extension of sacrum [spine] somewhat guarded secondary to pain, [antalgic gait noted] Neurological: Speech clear, no gross sensory deficit Has patient had previous pain injection?: No Conservative treatment options previously tried: Home exercise plan Length of treatment: Longer than 12 weeks, Physical Therapy Length of treatment: Longer than 6-week and Chiropractor Length of treatment: Longer than 12 weeks Meds Home Medications and Allergies Home Medications ?Medication ?Instructions ?Recorded ?Confirmed ?Type ferrous sulfate 325 mg (65 mg 325 mg PO DAILY 09/09/24 09/09/24 History iron) tablet,delayed release folic acid 400 mcg tablet 0.4 mg PO DAILY 09/09/24 09/09/24 History levetiracetam 500 mg tablet 500 mg PO DAILY 09/09/24 09/09/24 History (Keppra) magnesium 250 mg tablet 250 mg PO DAILY 09/09/24 09/09/24 History norgestimate 0.25 mg-ethinyl 1 tab PO DAILY 09/09/24 09/09/24 History estradiol 0.035 mg tablet New Prescriptions to Start Prescriptions: Allergies Allergy/AdvReac Type Severity Reaction Status Date / Time No Known Allergies Allergy Verified 09/09/24 15:26 Assessment and Plan *Assessment and plan (1) Coccygeal pain, chronic: Status: Acute Category: Medical Code(s): M53.3 - Sacrococcygeal disorders, not elsewhere classified; G89.29 - Other chronic pain (2) Pain in buttock: Status: Acute Category: Medical Code(s): M79.18 - Myalgia, other site (3) Radicular pain of lumbosacral region: Status: Acute Category: Medical Code(s): M54.17 - Radiculopathy, lumbosacral region Plan Patient continues to have chronic pain there around her sacrum and coccyx area. I did review over the risk and benefits of the caudal epidural and I do believe she would still benefit from this injection. We did review over the cost [id number] for this injection and she would like to proceed forward with this plan of care. I did child and family counselor her that the [place] location is another option that would provide the caudal injection but generally less than the $1025 that she was given a rough estimate here at the hospital with. Due to the fact that we do not know if this injection will or will not provide significant relief and that the cost is adding to additional financial strain we will send her to the [place] location where the [id number] cost is $600. Patient has been dealing with this pain for 4 years that has remained unchanged through conservative treatment. We will follow-up with her here in this location following this injection for efficacy. Patient agrees with this plan of care. Patient has been instructed to contact the clinic with any concerns before the next appointment. Dr. Romero has reviewed this note and agrees with this plan of care. This note was dictated using voice recognition software and make contain errors or omissions. All injections are used with Lidocaine, Bupivacaine and dexamethasone. Occasionally urine drug screen is needed to verify patient's compliance with our office pain contract. This is ordered based off specific treatments related to chronic pain with the potential to abuse certain medications.
== END 2025-01-23 23:59 | disposition home or self-care (01) ==
LOC: SC.PAIN 15:53
PROVIDERS: PCP Family Medicine; Visit Provider Nurse Practitioner Family
DX: M53.3 Sacrococcygeal disorders, not elsewhere classified (principal); G89.29 Other chronic pain; M79.18 Myalgia, other site; M54.17 Radiculopathy, lumbosacral region
CPT/HCPCS: 99212; G0463

== ENCOUNTER 2025-04-16 16:06 | Outpatient (CLI) | payer BC, SELFPAY ==
--- OUTSIDE RECORDS SUMMARY | 2024-09-09 11:15 | XMS_ITS ---
Author Organization [facility] Address [address] [place] [id number] Care Team Providers Care Health Editor Name Role Phone Joey Lora Primary Care Provider [phone] Tammy Kelley Eladio Estrada [phone] Allergies Allergen (clinical drug ingredient) Drug/Non Drug Allergy documented on EMR Reaction Allergy Type Onset Date Status methimazole methIMAzole mouth sores Drug Allergy A ctive Results Component Value Reference Range Notes CBC Fingerstick (in house) Reviewed date:09/10/2024 12:35:06 PM Interpretation: Performing Lab: Notes/Report: wbc 15.2 3.5 - 10 lym 16.6% 15 - 50 mid 4.0% 2 - 15 gran 79.4% 35 - 80 rbc 3.73 3.5 - 5.5 hgb 12.4 11.5 - 16.5 hct 36.0 35 - 55 mcv 96.5 75 - 100 mch 33.3 25 - 35 mchc 34.5 31 - 38 plat 245 100 - 400 REASON FOR VISIT bad cough causing sweating Medications Medication SIG (Take, Route, Frequency, Duration) Notes Start Date End Date Status Cefdinir 300 MG 1 cap(s) Orally Two times a day; Duration: 7 days 09/09/2024 Active Norgestimate-Eth Estradiol 0.25-35 MG-MCG TAKE 1 TABLET BY MOUTH DAILY; Duration: 84 Active Vitamin B12 1000 MCG 1 tablet Orally Onc e a day Active Magnesium 400 MG as directed Orally Active Benefiber - as directed orally 2 times a day OTC 09/30/2021 Active Folic Acid 1 MGM 1 TAB QD; Duration: 30 DAYS Active Fluticasone Propionate 50 MCG/ACT 1 spray(s) in each nostril Two times a day 07/29/2021 Active Keppra 500 MG 1 tab(s) orally 2 ti mes a day Active Problems Problem Type SNOMED Code ICD Code Onset Dates Problem Status W/U Status Risk Notes Problem Chronic thyroiditis (63218574) Chronic thyroiditis (E06.5) Active confirmed Vital Signs Weight 207.8 lbs 09/09/2024 Blood pressure systolic 112 mm Hg 09/10/19 25 Blood pressure diastolic 74 mm Hg 025 Heart Rate 87 /min 09/09/2024 Height 67.25 in 09/09/2024 BMI 32.3 kg/m2 09/09/2024 Encounters Encounter Location Date Provider Diagnosis [facility] [address] [facility] [address] [facility] [address] [place], [place] [id number] 09/09/2024 Joey Lora Acute URI J06.9 and Chronic thyroiditis E06.5 Assessments Encounter Date Diagnosis (ICD Code) Assessment Notes Treatment Notes Treatment Clinical Notes Section Notes 09/09/2024 Acute URI (ICD-10 - J06.9) 09/09/2024 Chronic thyroiditis (ICD-10 - E06.5) Plan Of Treatment Medication Medication Name Sig Start Date Stop Date Notes Cefdinir 300 MG 1 cap(s) Orally Two times a day; Duration: 7 days 09/09/2024 Next Appt Details Provider Name:Joey Stauffer ry, 06/16/2025 04:15:00 PM, [address] [facility] [address] [facility], [address], [place], [place], [id number], Progress Notes * Kiesha MANDUJANOB:2000 ( 24 yo F)Acc No.hhhhhhhhhhhhDOS:09/09/2024 Progress Notes Patient: Chaya WEAVER Account Number:[id number] Provider: Popeye Lora M.D. :2000 A ge:24 Y S ex:Female Date:09/09/2024 Address:[address] [place] [address], [place], [id number] Subjective: * Chief Complaints: * 1 . Bad cough causing sweating. * HPI: E NT/respiratory: 24 year old female presents with c/o cough P t complains of dry without any sputum production cough that started over the weekend. Associated with sore throat and nasal congestion. Pt states that she has also been sweating but has not had a fever. * 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: S eizures, ADHD-Hyperactive/Impulsive, Cardiac Murmur, Hyperthyroidism - followed by endocrinoligy. * Surgical History: D enies Past Surgical History. * Hospitalization/Major Diagno stic Procedure: T egretol Toxicity 08/2008, LT Foot Tendon Tear- Sports Medicine 03/21/2017, [facility] ER - Extreme Fatigue 03/03/2024. * Family History: F ather: alive 51 yrs. M other: alive 48 yrs. P aternal Grand Father: alive. P aternal Grand Mother: alive. M aternal Grand Father: alive. M aternal Grand Mother: alive. 1 sister(s) - healthy. . * Medications: T aking Magnesium 400 MG Capsule as directed Orally , Taking Vitamin B12 1000 MCG Tablet Extended Release 1 tablet Orally Once a day , Taking Keppra 500 MG Tablet 1 tab(s) orally 2 times a day , Taking Folic Acid 1 MGM 1 TAB QD , Taking Benefiber - Powder as directed orally 2 times a day , Notes to Pharmacist: OTC, Taking Fluticasone Propionate 50 MCG/ACT Suspension 1 spray(s) in each nostril Two times a day , Taking Norgestimate-Eth Estradiol 0.25-35 MG-MCG Tablet TAKE 1 TABLET BY MOUTH DAILY , Discontinued Metoprolol Succinate ER 25 MG Tablet Extended Release 24 Hour 1/2 tablet Orally Once a day , Medication List reviewed and reconciled with the patient * Allergies: m ethIMAzole: mouth sores - Allergy. Objective: * Vitals: W t: 207.8, Temp: 98.2, BP: 112/74, HR: 87, O2 Sat: 96% on RA, Nurse: lola, Ht: 67.25, BMI:32.3. * Examination: E NT/Respiratory: General Appearance: N AD. E yes: P ERRLA, sclera clear. O ral cavity : erythema without exudate on pharynx. N marek : n o cervical lymphadenopathy, thyroid enlarged, nontender. H eart : R RR, normal S1 S2. L ungs: c lear to auscultation bilaterally. Assessment: * Assessment: 1. A cute URI - J06.9 (Primary) 2 . C hronic thyroiditis - E06.5 Plan: * Treatment: Value Reference Range w bc 15.2 3.5 - 10 * l ym 16.6% 15 - 50 * m id 4.0% 2 - 15 * g ran 79.4% 35 - 80 * r bc 3.73 3.5 - 5.5 * h gb 12.4 11.5 - 16.5 * h ct 36.0 35 - 55 * m cv 96.5 75 - 100 * m ch 33.3 25 - 35 * m chc 34.5 31 - 38 * p lat 245 100 - 400 * Susi Guzman 09/09/2024 04:52: 38 PM > Provider reviewed results while patient in office. * Procedure Codes: 9 4760 [place], [address] CBC WITH AUTO DIFF, 65659 CAPILLARY BLOOD DRAW, 3074F SYST BP LT 130 MM HG, 3078F DIAST BP < 80 MM HG * Images: Billing Information: * Visit Code: 41817 Office Visit, Est Pt., Level 3. * Procedure Codes: [address] [place]. [address] CBC WITH AUTO DIFF. 38246 CAPILLARY BLOOD DRAW. 3074F SYST BP LT 130 MM HG. 3078F DIAST BP < 80 MM HG. * Electronic signature of Nimo Lora MD on 04/16/2025 at 04:11 PM EST Sign off status: Pending * Provider: Popeye Lora M.D. Date: 0 09/09/2024 Generated for Ceci banks/Nancy/Emily on: 1 06/16/2024 04:11 PM EST History and Physical Notes * HPI (History of Present Illness) Category Sub-Category Detail Notes Category Not es ENT/respiratory cough Pt complains of dry without any sputum production cough that started over the weekend. Associated with sore throat and nasal congestion. Pt states that she has also been sweating but has not had a fever Examination Category Sub-Category Detail Notes Category Not es ENT/Respiratory Oral cavity : erythema without exudate on pharynx Neck : no cervical lymphade nopathy, thyroid enlarged, nontender Heart : RRR, normal S1 S2 Lungs: clear to auscultatio n bilaterally General Appearance: NAD Eyes: PERRLA, sclera clear
--- OUTSIDE RECORDS SUMMARY | 2024-09-13 09:45 | XMS_ITS ---
Author Organization [facility] Address [address] [place] [id number] Care Team Providers Care Manager Wireless Name Role Phone Geno Joey Primary Care Provider [phone] WarrenTammy [phone] Allergies Allergen (clinical drug ingredient) Drug/Non Drug Allergy documented on EMR Reaction Allergy Type Onset Date Status methimazole methIMAzole mouth sores Drug Allergy A ctive Results Component Value Reference Range Notes CBC Fingerstick (in house) Reviewed date:09/13/2024 04:23:29 PM Interpretation: Performing Lab: Notes/Report: wbc 16.5 3.5 - 10 lym 17.1% 15 - 50 mid 4.6% 2 - 15 gran 78.3% 35 - 80 rbc 3.90 3.5 - 5.5 hgb 12.9 11.5 - 16.5 hct 37.9 35 - 55 mcv 97.1 75 - 100 mch 33.1 25 - 35 mchc 34.1 31 - 38 plat 202 100 - 400 REASON FOR VISIT cough worse Medications Medication SIG (Take, Route, Frequency, Duration) Notes Start Date End Date Status Benefiber - as directed orally 2 times a day OTC 09/30/2021 Active Fluticasone Propionate 50 MCG/ACT 1 spray(s) in each nostril Two times a day 07/29/2021 Active Folic Acid 1 MGM 1 TAB QD; Duration: 30 DAYS Active Cefdinir 300 MG 1 cap(s) Orally Two times a day; Duration: 7 days 09/09/2024 Active Norgestimate-Eth Estradiol 0.25-35 MG-MCG TAKE 1 TABLET BY MOUTH DAILY; Duration: 84 Active Zithromax Z-Gil 250 MG as directed Orall y once daily; Duration: 5 day(s) 09/13/2024 Active Keppra 500 MG 1 tab(s) orally 2 ti mes a day Active Magnesium 400 MG as directed Orally Active Vitamin B12 1000 MCG 1 tablet Orally Onc e a day Active Vital Signs Weight 204 lbs 09/13/2024 Blood pressure systolic 110 mm Hg 09/14/19 25 Blood pressure diastolic 70 mm Hg 025 Heart Rate 98 /min 09/13/2024 Height 67.25 in 09/13/2024 BMI 31.71 kg/m2 09/13/2024 Encounters Encounter Location Date Provider Diagnosis [facility] [address] [facility] [address] [facility] [address] [place], [place] [id number] 09/13/2024 Joey Lora Acute URI J06.9 Assessments Encounter Date Diagnosis (ICD Code) Assessment Notes Treatment Notes Treatment Clinical Notes Section Notes 09/13/2024 Acute URI (ICD-10 - J06.9) Plan Of Treatment Medication Medication Name Sig Start Date Stop Date Notes Zithromax Z-Gil 250 MG as directed Orall y once daily; Duration: 5 day(s) 09/13/2024 Next Appt Details Follow Up: prn, Reason: Provider Name:Joey Stauffer ry, 06/16/2025 04:15:00 PM, [address] [facility] [address] [facility], [address], [place], [id number], Progress Notes * Sirisha MANDUJANO:2000 ( 24 yo F)Acc No.hhhhhhhhhhhhDOS:09/13/2024 Progress Notes Patient: Chaya WEAVER Account Number:[id number] Provider: Popeye Lora M.D. :2000 A ge:24 Y S ex:Female Date:09/13/2024 Address:[address] [place] [address], [place], [id number] Subjective: * Chief Complaints: * 1 . Cough worse. * HPI: E NT/respiratory: 24 year old female presents with c/o cough P t complains of ongoing small amount of white sputum c ough. Pt was seen 09/09 and rx'd Cefdinir for bacterial infection. Pt states she has been taking abx but feels like her cough got worse last night. * ROS: D ERMATOLOGY: no R peter. n o H saniya. G ASTROENTEROLOGY: no N ausea. n o V omiting. U ROLOGY: no D ifficulty urinating. n o B lood in urine. * 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: S eizures, ADHD-Hyperactive/Impulsive, Cardiac Murmur, Hyperthyroidism - followed by endocrinoligy. * Surgical History: D enies Past Surgical History. * Hospitalization/Major Diagno stic Procedure: T egretol Toxicity 08/2008, LT Foot Tendon Tear- Sports Medicine 03/21/2017, [facility] ER - Extreme Fatigue 03/03/2024. * Family History: F ather: alive 51 yrs. M other: alive 48 yrs. P aternal Grand Father: alive. P aternal Grand Mother: alive. M aternal Grand Father: alive. M aternal Grand Mother: alive. 1 sister(s) - healthy. . * Social History: C URRENT TOBACCO USE S moking Status: Patient does NOT smoke. C affeine: no. Exercise: no. Home smoke detector use: yes. Marital Status: Single. New since last visit: none. Past smoking status: no. Occup. exposure: none. Recreational drug use: no. Alcohol: no. Sexually active: no.. Travel ouside [place]: no. * Medications: T aking Magnesium 400 MG [...] TAKE 1 TABLET BY MOUTH DAILY , Taking Cefdinir 300 MG Capsule 1 cap(s) Orally Two times a day , Medication List reviewed and reconciled with the patient * Allergies: m ethIMAzole: mouth sores - Allergy. Objective: * Vitals: W t: 204, Temp: 98.0, BP: 110/70, HR: 98, O2 Sat: 98% on RA, Nurse: lola, Ht: 67.25, BMI:31.71. * Examination: E NT/Respiratory: General Appearance: N AD. E yes: P ERRLA, sclera clear. O ral cavity : erythema without exudate on pharynx. H eart : R RR, normal S1 S2. L ungs: c lear to auscultation bilaterally. Assessment: * Assessment: 1. Veronica cortez URI - J06.9 (Primary) Plan: * Treatment: Value Reference Range w bc 16.5 3.5 - 10 * l ym 17.1% 15 - 50 * m id 4.6% 2 - 15 * g ran 78.3% 35 - 80 * r bc 3.90 3.5 - 5.5 * h gb 12.9 11.5 - 16.5 * h ct 37.9 35 - 55 * m cv 97.1 75 - 100 * m ch 33.1 25 - 35 * m chc 34.1 31 - 38 * p lat 202 100 - 400 * Susi Guzman 09/13/2024 02:48:1 0 PM > Provider reviewed results while patient in office. * Procedure Codes: 9 4760 [place], [address] CAPILLARY BLOOD DRAW, [address] CBC WITH AUTO DIFF, 3074F SYST BP LT 130 MM HG, 3078F DIAST BP < 80 MM HG * Follow Up: p rn * Images: Billing Information: * Visit Code: 66399 Office Visit, Est Pt., Level 3. * Procedure Codes: [address] [place]. [address] CAPILLARY BLOOD DRAW. 96513 CBC WITH AUTO DIFF. 3074F SYST BP LT 130 MM HG. 3078F DIAST BP < 80 MM HG. * Electronic signature of Nimo Lora MD on 04/16/2025 at 04:10 PM EST Sign off status: Pending * Provider: Popeye Lora M.D. Date: 0 09/13/2024 Generated for Deai jocelyn/Nancy/eTnelidaitting on: 1 06/16/2024 04:10 PM EST History and Physical Notes * HPI (History of Present Illness) Category Sub-Category Detail Notes Category Not es ENT/respiratory cough Pt complains of ongoing small amount of white sputum cough. Pt was seen 09/09 and rx'd Cefdinir for bacterial infection. Pt states she has been taking abx but feels like her cough got worse last night Examination Category Sub-Category Detail Notes Category Not es ENT/Respiratory Oral cavity : erythema without exudate on pharynx Heart : RRR, normal S1 S2 Lungs: clear to auscultatio n bilaterally General Appearance: NAD Eyes: PERRLA, sclera clear
--- OUTSIDE RECORDS SUMMARY | 2024-09-23 06:30 | XMS_ITS ---
Author Organization [facility] Address [address] [place] [id number] Care Team Providers Care Barkeeper Name Role Phone Joey Lora Primary Care Provider Tammy Kelley Eladio Estrada [phone] Allergies Allergen (clinical drug ingredient) Drug/Non Drug Allergy documented on EMR Reaction Allergy Type Onset Date Status methimazole methIMAzole mouth sores Drug Allergy A ctive Results Component Value Reference Range Notes CBC Venipuncture (in house) Reviewed date:09/29/2024 05:34:39 PM Interpretation:not performed, see 09/24/2024 Performing Lab: Notes/Report: not performed, see 09/24/2024 P-Thyroid Peroxidase Antibod y Reviewed date:09/25/2024 12:38:30 PM Interpretation:Normal Performing Lab: Notes/Report: Test performed by [facility] [address] [place], [place] [address] [place] , [place] [address] Kosta Tucker MD, Manager Secondary CLIA: [id number] Thyroid Peroxidase Antibody 12 <9-34 IU/mL An elevated Thyroid Peroxidase Antibody should not be used alone to make the diagnosis of autoimmune thyroid disease. A result of <34 IU/mL does not definitively rule out the possibility of autoimmune thyroid disease. P-Thyroglobulin Antibody Reviewed date:09/25/2024 12:38:30 PM Interpretation:Normal Performing Lab: Notes/Report: Test performed by [facility] [address] [place], [place] [address] [place] , [address], [place] [address] Kosta Tucker MD, Manager Secondary CLIA: [id number] Thyroglobulin Antibody 18.2 <10-115.0 IU/mL The test is performed by the Jai ECLIA methodology. Values obtained with different assay methods or kits cannot be directly compared. P-Comprehensive Metabolic Pa carlton (CMP) Reviewed date:09/25/2024 12:38:30 PM Interpretation:Normal Performing Lab: Notes/Report: Test performed by [facility], [address] , [address], [place] [address] Kosta Tucker MD, Manager Secondary CLIA: [id number] Sodium 138 135-145 mmol/L Potassium 4.2 3.5-5.3 mmol/L Chloride 104 97-108 mmol/L CO2 24 22-32 mmol/L Glucose 94 65-99 mg/dL BUN 12 6-20 mg/dL Creatinine 0.74 0.50-1.00 mg/dL Calcium 9.6 8.6-10.4 mg/dL eGFR by Creatinine 117 >59 mL/min/1.73m2 Protein 6.8 6.0-8.3 g/dL Albumin 4.1 3.5-5.3 g/dL Alkaline Phosphatase 61 35-121 IU/L ALT (SGPT) 9 <5-47 IU/L AST (SGOT) 14 <5-40 IU/L Bilirubin, Total 0.6 <0.2-1.2 mg/dL A/G Ratio 1.5 1.1-2.5 P-Levetiracetam Reviewed date:09/26/2024 04:51:08 PM Interpretation:Low normal Performing Lab: Notes/Report: Levetiracetam 10 10-40 ug/mL INTERPRETIVE INFORMATION: Keppra (Levetiracetam) Therapeutic Range: 10-40 ug/mL Toxic: Not well Established Pharmacokinetics of levetiracetam are affected by renal function. Adverse effects may include somnolence, weakness, headache and vomiting. This levetiracetam (Keppra) immunoassay uses the [employer] reagents, which has known cross-reactivity with the drug brivaracetam (Briviact) and may report inaccurate results. Patients transitioning from levetiracetam to brivaracetam or those who are using both medications should not monitor drug concentrations with the [employer] assay. These patients should be monitored using a validated chromatographic methodology that distinguishes between drugs to determine drug concentrations. Performed By: [facility] [address] [place] [address] Manager Secondary: Darnell Mojica MD, PhD CLIA Number: [id number] P-TSH Receptor Binding Antib joleen Reviewed date:09/25/2024 12:38:30 PM Interpretation:Normal Performing Lab: Notes/Report: Test performed by [facility] [address] , [place] [address] Kosta Tucker MD, Manager Secondary CLIA: [id number] TSH Receptor Binding Antibody <1.1 <1.76 IU/L xultrasound : thyroid Reviewed date:10/03/2024 12:49:56 PM Interpretation:stable, no f/u recommended Performing Lab: Notes/Report: stable, no f/u recommended REASON FOR VISIT run tests on thyroid, visual disturbance, headache, does still have cough Medications Medication SIG (Take, Route, Frequency, Duration) Notes Start Date End Date Status Keppra 500 MG 1 tab(s) orally 2 ti mes a day Active Vitamin B12 1000 MCG 1 tablet Orally Onc e a day Active Fluticasone Propionate 50 MCG/ACT 1 spray(s) in each nostril Two times a day 07/29/2021 Active Benefiber - as directed orally 2 times a day OTC 09/30/2021 Active Folic Acid 1 MGM 1 TAB QD; Duration: 30 DAYS Active Magnesium 400 MG as directed Orally Active Norgestimate-Eth Estradiol 0.25-35 MG-MCG TAKE 1 TABLET BY MOUTH DAILY; Duration: 84 Active Problems Problem Type SNOMED Code ICD Code Onset Dates Problem Status W/U Status Risk Notes Problem Thyromegaly (2069208) Thyromegaly (E01.0) Active confirmed Problem BMI 30+ - obesity (714391369) BMI 32.0-32.9,adult (Z68.32) Active confirmed Vital Signs Weight 208.4 lbs 09/23/2024 Blood pressure systolic 116 mm Hg 09/24/19 25 Blood pressure diastolic 78 mm Hg 025 Heart Rate 113 /min 09/23/2024 Height 67.25 in 09/23/2024 BMI 32.39 kg/m2 09/23/2024 Encounters Encounter Location Date Provider Diagnosis [facility] [address] [facility] [address] [facility] [address] [place] [id number] 09/23/2024 Joey Lora Persistent cough R05 .3 ; Blurred vision H53.8 ; Chronic thyroiditis E06.5 ; Thyromegaly E01.0 ; 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 terminal manager 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 Z79.899 and BMI 32.0-32.9,adult Z68.32 Assessments Encounter Date Diagnosis (ICD Code) Assessment Notes Treatment Notes Treatment Clinical Notes Section Notes 09/23/2024 Persistent cough (ICD-10 - R05.3) 09/23/2024 Blurred vision (ICD-10 - H53.8) Patient could be having a migraine headache, call with any new symptoms 09/23/2024 Chronic thyroiditis (ICD-10 - E06.5) 09/23/2024 Thyromegaly (ICD-10 - E01.0) 09/23/2024 assistant terminal manager 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 (ICD-10 - Z79.899) 09/23/2024 BMI 32.0-32.9,adult (ICD-10 - Z68.32) Plan Of Treatment Treatment Notes Assessment Notes Blurred vision Patient could be hav ing a migraine headache, call with any new symptoms Next Appt Details Follow Up: via phone to repo rt test results, Reason: Provider Name:Joey Stauffer , 06/16/2025 04:15:00 PM, [address] [facility] [address] [facility], [address], [place], [id number], Progress Notes * Kiesha ESPINOB:2000 ( 24 yo F)Acc No.hhhhhhhhhhhhDOS:09/23/2024 Progress Notes Patient: Chaya WEAVER Account Number:[id number] Provider: Popeye Lora M.D. :2000 A ge:24 Y S ex:Female Date:09/23/2024 Address:[address] [place] [address], [id number] Subjective: * Chief Complaints: * 1 . Run tests on thyroid, visual disturbance, headache, does still have cough. * HPI: H PI: 24 year old female presents with c/o Patient is here today for?Pt sts she would like to discuss seizure warning symptoms as this morning she w as very pale and hot/cold and has been hot ever since, pt also s ts her vision was going out. Pt sts she had a headache which she still has that seems to be in the front and the back of her head. P t would like labs to check her thyroid, and other auto immune diseases. E NT/respiratory: c/o cough P t sts she had a bacterial infection at her last appt and is here today to make sure it has gone away. Pt sts she does still have a cough. * ROS: D ERMATOLOGY: no R peter. n o H saniya. G ASTROENTEROLOGY: no N ausea. n o V omiting. U ROLOGY: no D ifficulty urinating. n o B lood in urine. * 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: S eizures, ADHD-Hyperactive/Impulsive, Cardiac Murmur, Hyperthyroidism - followed by endocrinoligy. * Hospitalization/Major Diagno stic Procedure: T egretol Toxicity 08/2008, LT Foot Tendon Tear- Sports Medicine 03/21/2017, [facility] ER - Extreme Fatigue 03/03/2024. * Family [...] TAKE 1 TABLET BY MOUTH DAILY , Medication List reviewed and reconciled with the patient * Allergies: m ethIMAzole: mouth sores - Allergy. Objective: * Vitals: W t: 208.4, Temp: 98.6, BP: 116/78, HR: 113, Nurse: samuel, Ht: 67.25, BMI:32.39. * Examination: E NT/Respiratory: General Appearance: N AD. E yes: P ERRLA, sclera clear. O ral cavity : erythema without exudate on pharynx. H eart : R RR, normal S1 S2. L ungs: c lear to auscultation bilaterally. Assessment: * Assessment: 1. P ersistent cough - R05.3 (Primary) 2 . B lurred vision - H53.8 ? 3 . C hronic thyroiditis - E06.5 4 . T hyromegaly - E01.0 5 . L tello term 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 - Z79.899 6 . B [place] 32.0-32.9,adult - Z68.32 Plan: * Treatment: Value Reference Range A /G Ratio 1.5 1.1-2.5 - * A lbumin 4.1 3.5-5.3 - g/dL * A lkaline Phosphatase 61 35-121 - IU/L * A LT (SGPT) 9 <5-47 - IU/L * A ST (SGOT) 14 <5-40 - IU/L * B ilirubin, Total 0.6 <0.2-1.2 - mg/dL * B UN 12 6-20 - mg/dL * C alcium 9.6 8.6-10.4 - mg/dL * C hloride 104 97-108 - mmol/L * C O2 24 22-32 - mmol/L * C reatinine 0.74 0.50-1.00 - mg/dL * G lucose 94 65-99 - mg/dL * P otassium 4.2 3.5-5.3 - mmol/L * S odium 138 135-145 - mmol/L * P rotein 6.8 6.0-8.3 - g/dL * e GFR by Creatinine 117 >59 - mL/min/1.73m2 * Susi Guzman 09/25/2024 12:04:5 9 PM > LM for pt to return call Roxie Mcdonough 09/25/2024 12:38:17 PM > pt informed of results ?LAB: CBC Venipuncture (in house) (Collection Date & Time - 09/29/2024)?not performed, see .?Blurred vision?LAB: P-Comprehensive Metabolic Panel (CMP) (Collection Date & Time - 09/23/2024 02:36 PM)?Normal* Value Reference Range A /G Ratio 1.5 1.1-2.5 - * A lbumin 4.1 3.5-5.3 - g/dL * A lkaline Phosphatase 61 35-121 - IU/L * A LT (SGPT) 9 <5-47 - IU/L * A ST (SGOT) 14 <5-40 - IU/L * B ilirubin, Total 0.6 <0.2-1.2 - mg/dL * B UN 12 6-20 - mg/dL * C alcium 9.6 8.6-10.4 - mg/dL * C hloride 104 97-108 - mmol/L * C O2 24 22-32 - mmol/L * C reatinine 0.74 0.50-1.00 - mg/dL * G lucose 94 65-99 - mg/dL * P otassium 4.2 3.5-5.3 - mmol/L * S odium 138 135-145 - mmol/L * P rotein 6.8 6.0-8.3 - g/dL * e GFR by Creatinine 117 >59 - mL/min/1.73m2 * Susi Guzman 09/25/2024 12:04:5 9 PM > LM for pt to return call Roxie Mcdonough 09/25/2024 12:38:17 PM > pt informed of results Notes: Patient could be having a migraine headache, call with any new symptoms?? 3.?Chronic thyroiditis?LAB: P-Thyroid Peroxidase Antibody (Collection Date & Time - 09/23/2024 02:36 PM)?Normal* Value Reference Range T hyroid Peroxidase Antibody 12 <9-34 - IU/mL * Susi Guzman 09/25/2024 12:04:5 9 PM > LM for pt to return call Roxie Mcdonough 09/25/2024 12:38:17 PM > pt informed of results ?LAB: P-Thyroglobulin Antibody (Collection Date & Time - 09/23/2024 02:36 PM)?Normal* Value Reference Range T hyroglobulin Antibody 18.2 <10-115.0 - IU/mL * Susi Guzman 09/25/2024 12:04:5 9 PM > LM for pt to return call Roxie Mcdonough 09/25/2024 12:38:17 PM > pt informed of results ?LAB: P-Comprehensive Metabolic Panel (CMP) (Collection Date & Time - 09/23/2024 02:36 PM)?Normal* Value Reference Range A /G Ratio 1.5 1.1-2.5 - * A lbumin 4.1 3.5-5.3 - g/dL * A lkaline Phosphatase 61 35-121 - IU/L * A LT (SGPT) 9 <5-47 - IU/L * A ST (SGOT) 14 <5-40 - IU/L * B ilirubin, Total 0.6 <0.2-1.2 - mg/dL * B UN 12 6-20 - mg/dL * C alcium 9.6 8.6-10.4 - mg/dL * C hloride 104 97-108 - mmol/L * C O2 24 22-32 - mmol/L * C reatinine 0.74 0.50-1.00 - mg/dL * G lucose 94 65-99 - mg/dL * P otassium 4.2 3.5-5.3 - mmol/L * S odium 138 135-145 - mmol/L * P rotein 6.8 6.0-8.3 - g/dL * e GFR by Creatinine 117 >59 - mL/min/1.73m2 * Kumar Guzmanira 09/25/2024 12:04:5 9 PM > LM for pt to return call Roxie Mcdonough 09/25/2024 12:38:17 PM > pt informed of results ?LAB: P-TSH Receptor Binding Antibody (Collection Date & Time - 09/23/2024 02:36 PM)?Normal* Value Reference Range T SH Receptor Binding Antibody <1.1 <1.76 - IU/ L * Kumar Guzmanira 09/25/2024 12:04:5 9 PM > LM for pt to return call Roxie Mcdonough 09/25/2024 12:38:17 PM > pt informed of results ?Imaging: xultrasound : thyroid (Performed Date - 09/26/2024)?stable, no f/u recommended* Ferannda Moses 09/23/2024 12:4 6:33 PM > no auth required; CPT code 47905; [facility] 12:49:49 PM >See TE 4.?Thyromegaly?Imaging: xultrasound : thyroid (Performed Date - 09/26/2024)?stable, no f/u recommended* Fernanda Moses 09/23/2024 12:4 6:33 PM > no auth required; CPT code 51001; faxed to [facility] 10/03/2024 12:49:49 PM >See TE 5.?alf 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?LAB: P-Levetiracetam (Collection Date & Time - 09/23/2024 03:12 PM)?Low normal* Value Reference Range L evetiracetam 10 10-40 - ug/mL * Joey Lora 09/26/2024 1 2:54:01 PM > Sent to to inform.Roxie Mcdonough 09/26/2024 04:50:32 PM > pt informed of results * Procedure Codes: 3 074F SYST BP LT 130 MM HG, 3078F DIAST BP < 80 MM HG * Follow Up: v ia phone to report test results * Images: Billing Information: * Visit Code: 46424 Office Visit, Est Pt., Level 4. * Procedure Codes: 3074F SYST BP LT 130 MM HG. 3078F DIAST BP < 80 MM HG. * Electronic signature of Nimo Lora MD on 04/16/2025 at 04:11 PM EST Sign off status: Pending * Provider: Popeye Lora M.D. Date: 0 09/23/2024 Generated for Ceci banks/Nancy/Emily on: 1 06/16/2024 04:11 PM EST History and Physical Notes * HPI (History of Present Illness) Category Sub-Category Detail Notes Category Not es ENT/respiratory cough Pt sts she had a bacterial infection at her last appt and is here today to make sure it has gone away. Pt sts she does still have a cough HPI Patient is here today for Pt sts she would like to discuss seizure warning symptoms as this morning she was very pale and hot/cold and has been hot ever since, pt also sts her vision was going out. Pt sts she had a headache which she still has that seems to be in the front and the back of her head. Pt would like labs to check her thyroid, and other auto immune diseases Examination Category Sub-Category Detail Notes Category Not es ENT/Respiratory Oral cavity : erythema without exudate on pharynx Heart : RRR, normal S1 S2 Lungs: clear to auscultatio n bilaterally General Appearance: NAD Eyes: PERRLA, sclera clear
--- OUTSIDE RECORDS SUMMARY | 2024-09-24 06:25 | XMS_ITS ---
Author Organization [facility] Address [address] [place] [id number] Care Team Providers Care Clay Roaster Name Role Phone Geno Joey Primary Care Provider [phone] Tammy Kelley Eladio Unavailable [phone] Results Component Value Reference Range Notes CBC Fingerstick (in house) Reviewed date:09/25/2024 12:38:30 PM Interpretation:Normal Performing Lab: Notes/Report: Normal wbc 8.5 3.5 - 10 lym 28.2% 15 - 50 mid 6.1% 2 - 15 gran 65.7% 35 - 80 rbc 4.11 3.5 - 5.5 hgb 14.4 11.5 - 16.5 hct 39.8 35 - 55 mcv 96.6 75 - 100 mch 34.9 25 - 35 mchc 36.1 31 - 38 plat 216 100 - 400 REASON FOR VISIT lab only, CBC Medications Medication SIG (Take, Route, Frequency, Duration) Notes Start Date End Date Status Folic Acid 1 MGM 1 TAB QD; Duration: 30 DAYS Active Keppra 500 MG 1 tab(s) orally 2 ti mes a day Active Norgestimate-Eth Estradiol 0.25-35 MG-MCG TAKE 1 TABLET BY MOUTH DAILY; Duration: 84 Active Fluticasone Propionate 50 MCG/ACT 1 spray(s) in each nostril Two times a day 07/29/2021 Active Benefiber - as directed orally 2 times a day OTC 09/30/2021 Active SUMAtriptan Succinate 100 MG 1 tablet as needed, may take second dose at least 2 hours after first dose up to 2 tablets per day as needed Orally 09/23/2024 Active Vitamin B12 1000 MCG 1 tablet Orally Onc e a day Active Magnesium 400 MG as directed Orally Active Encounters Encounter Location Date Provider Diagnosis [facility] [address] [facility] [address] [facility] [address] [place] [id number] 09/24/2024 Joey Lora Acute upper respirat ory infection, unspecified J06.9 Assessments Encounter Date Diagnosis (ICD Code) Assessment Notes Treatment Notes Treatment Clinical Notes Section Notes 09/24/2024 Acute upper respiratory infection, unspecified (ICD-10 - J06.9) Plan Of Treatment Next Appt Details Provider Name:Joey Stauffer ry, 06/16/2025 04:15:00 PM, [address], [address], [place], [phone], Progress Notes * Chaya MANDUJANODOB:2000 ( 24 yo F)Acc No.hhhhhhhhhhhhDOS:09/24/2024 Patient: Chaya WEAVER Account Number:[id number] Provider: Popeye Lora M.D. :2000 A ge:24 Y S ex:Female Date:09/24/2024 Address:[address] [place] [address], [place], [id number] Subjective: * Chief Complaints: * 1 . lab only, CBC. * 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: * Medications: T aking Magnesium 400 MG [...] 1 TABLET BY MOUTH DAILY , Taking SUMAtriptan Succinate 100 MG Tablet 1 tablet as needed, may take second dose at least 2 hours after first dose up to 2 tablets per day as needed Orally , Medication List reviewed and reconciled with the patient Objective: * Vitals: Assessment: * Assessment: 1. Veronica cortez upper respiratory infection, unspecified - J06.9 Plan: * Treatment: Value Reference Range w bc 8.5 3.5 - 10 * l ym 28.2% 15 - 50 * m id 6.1% 2 - 15 * g ran 65.7% 35 - 80 * r bc 4.11 3.5 - 5.5 * h gb 14.4 11.5 - 16.5 * h ct 39.8 35 - 55 * m cv 96.6 75 - 100 * m ch 34.9 25 - 35 * m chc 36.1 31 - 38 * p lat 216 100 - 400 * Susi Guzman 09/24/2024 12:19:2 1 PM > Susi Guzman 09/25/2024 12:04:59 PM > LM for pt to return call SharondaRoxie 09/25/2024 12:38:17 PM > pt informed of results * Procedure Codes: 3 6416 CAPILLARY BLOOD DRAW, 39937 CBC WITH AUTO DIFF * Images: Billing Information: * Visit Code: * Procedure Codes: 62317 CAPILLARY BLOOD DRAW. 91156 CBC WITH AUTO DIFF. * Electronic signature of Nimo Lora MD on 04/16/2025 at 04:10 PM EST Sign off status: Pending * Provider: Popeye Lora M.D. Date: 0 09/24/2024 Generated for Ceci banks/Nancy/Emily on: 1 06/16/2024 04:10 PM EST
--- OUTSIDE RECORDS SUMMARY | 2024-09-26 06:00 | XMS_ITS ---
Author Organization [facility] Address [facility] [facility] [address] [facility] [address] [place] [id number] Care Team Providers Care College Football Coach Name Role Phone Joey Lora Primary Care Provider Tammy Kelley Eladio Unavailable [phone] REASON FOR VISIT visual disturbance, headache, does still have cough Encounters Encounter Location Date Provider Diagnosis [facility] [address] [facility] [address] [place] [id number] 09/26/2024 Joey Lora Plan Of Treatment Next Appt Details Provider Name:Joey Stauffer ry, 06/16/2025 04:15:00 PM, [address] [facility], [address], [place], [id number], Progress Notes * Chaya MANDUJANODOB:2000 ( 24 yo F)Acc No.hhhhhhhhhhhhDOS:09/26/2024 Progress Notes Patient: Chaya WEAVER Account Number:[id number] Provider: Popeye Lora M.D. :2000 A ge:24 Y S ex:Female Date:09/26/2024 Address:[id number] Subjective: * Chief Complaints: * 1 . Visual disturbance, headache, does still have cough. * 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: Objective: * Vitals: Assessment: Plan: * Treatment: * Images: Billing Information: * Visit Code: * Procedure Codes: * Electronic signature of Nimo Lora MD on 04/16/2025 at 04:11 PM EST Sign off status: Pending * Provider: Popeye Lora M.D. Date: 0 09/26/2024 Generated for Ceci banks/Nancy/Emily on: 1 06/16/2024 04:11 PM EST
--- OUTSIDE RECORDS SUMMARY | 2024-10-30 11:15 | XMS_ITS ---
Author Organization [facility] Address [address] [place] [id number] Care Team Providers Care Ecology Professor Name Role Phone Joey Lora Primary Care Provider [phone] Tammy Kelley Unavailable [phone] Lanny Whitehead Unavailable [phone] Allergies Allergen (clinical drug ingredient) Drug/Non Drug Allergy documented on EMR Reaction Allergy Type Onset Date Status methimazole methIMAzole mouth sores Drug Allergy A ctive Results Component Value Reference Range Notes CBC Fingerstick (in house) Reviewed date:10/30/2024 10:23:00 PM Interpretation: Performing Lab: Notes/Report: wbc 10.5 3.5 - 10 lym 20.4 15 - 50 mid 4.4 2 - 15 gran 75.2 35 - 80 rbc 4.00 3.5 - 5.5 hgb 13.0 11.5 - 16.5 hct 38.5 35 - 55 mcv 96.3 75 - 100 mch 32.6 25 - 35 mchc 33.8 31 - 38 plat 266 100 - 400 REASON FOR VISIT dry sore throat and cough, covid negative Medications Medication SIG (Take, Route, Frequency, Duration) Notes Start Date End Date Status Keppra 750 MG 1 tab(s) orally 2 ti mes a day Active Vitamin B12 1000 MCG 1 tablet Orally Onc e a day Active Benefiber - as directed orally 2 times a day OTC 09/30/2021 Active Folic Acid 1 MGM 1 TAB QD; Duration: 30 DAYS Active Fluticasone Propionate 50 MCG/ACT 1 spray(s) in each nostril Two times a day 07/29/2021 Active Zithromax Z-Gil 250 MG 2 pills first day then one daily for 4 days orally as directed; Duration: 5 days 10/30/2024 Active Benzonatate 200 MG 1 capsule as needed Orally Three times a day, prn 10/30/2024 Active Norgestimate-Eth Estradiol 0.25-35 MG-MCG TAKE 1 TABLET BY MOUTH DAILY; Duration: 84 Active SUMAtriptan Succinate 100 MG 1 tablet as needed, may take second dose at least 2 hours after first dose up to 2 tablets per day as needed Orally 09/23/2024 Active Magnesium 400 MG as directed Orally Active Vital Signs Weight 208.4 lbs 10/30/2024 Blood pressure systolic 112 mm Hg 10/31/19 25 Blood pressure diastolic 64 mm Hg 025 Heart Rate 67 /min 10/30/2024 Height 67.25 in 10/30/2024 BMI 32.39 kg/m2 10/30/2024 Encounters Encounter Location Date Provider Diagnosis [facility] [address] [place] [id number] 10/30/2024 Lanny Whitehead Acute URI J06.9 Assessments Encounter Date Diagnosis (ICD Code) Assessment Notes Treatment Notes Treatment Clinical Notes Section Notes 10/30/2024 Acute URI (ICD-10 - J06.9) Plan Of Treatment Medication Medication Name Sig Start Date Stop Date Notes Zithromax Z-Gil 250 MG 2 pills first day then one daily for 4 days orally as directed; Duration: 5 days 10/30/2024 Benzonatate 200 MG 1 capsule as needed Orally Three times a day, prn 10/30/2024 Next Appt Details Follow Up: prn, Reason: Provider Name:Joey jean, 06/16/2025 04:15:00 PM, [address], [address], [place], [phone], Progress Notes * Sirisha MANDUJANO:2000 ( 24 yo F)Acc No.hhhhhhhhhhhhDOS:10/30/2024 Progress Notes Patient: Popeye LILLIAMChaya Account Number:[id number] Provider: MARY Do :2000 A ge:24 Y S ex:Female Date:10/30/2024 Address:[id number] Pcp:Joey Lora Subjective: * Chief Complaints: * 1 . Dry sore throat and cough, covid negative. * HPI: E NT/respiratory: 24 year old female presents with c/o sore throat. c/o cough P t presents today with c/o sore throat and post nasal drainage. Pt sts that she is coughing up some yellow sputum. Pt sts that she just started feeling bad Monday evening. Pt sts that she has been more prone to bacterial infections. * ROS: D ERMATOLOGY: no R peter. n o H saniya. G ASTROENTEROLOGY: no N ausea. n o V omiting. U ROLOGY: no D ifficulty urinating. n o B lood in urine. * 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: S eizures, ADHD-Hyperactive/Impulsive, Cardiac Murmur, Hyperthyroidism - followed by endocrinoligy. * Hospitalization/Major Diagno stic Procedure: T egretol Toxicity 08/2008, LT Foot Tendon Tear- Sports Medicine 03/21/2017, [facility] ER - Extreme Fatigue 03/03/2024. * Family [...] Orally Once a day , Taking Keppra 750 MG Tablet 1 tab(s) orally 2 times [...] Objective: * Vitals: W t: 208.4, Temp: 98.4, BP: 112/64, HR: 67, Nurse: SUSANA, Ht: 67.25, BMI:32.39. * Examination: E NT/Respiratory: General Appearance: N AD. E ars: a uditory canals normal bilaterally, TM's WNL. N ose : turbinates red, congested. S inuses : n on tender bilaterally. O ral cavity : erythema without exudate on pharynx. N marek : n o cervical lymphadenopathy. H eart : R RR, normal S1 S2, no murmurs. L ungs: c lear to auscultation bilaterally. Assessment: * Assessment: 1. Veronica cortez URI - J06.9 (Primary) Plan: * Treatment: Value Reference Range w bc 10.5 3.5 - 10 * l ym 20.4 15 - 50 * m id 4.4 2 - 15 * g ran 75.2 35 - 80 * r bc 4.00 3.5 - 5.5 * h gb 13.0 11.5 - 16.5 * h ct 38.5 35 - 55 * m cv 96.3 75 - 100 * m ch 32.6 25 - 35 * m chc 33.8 31 - 38 * p lat 266 100 - 400 * Roxie Mcdonough 10/30/2024 04: 48:40 PM > pt informed of results in office * Procedure Codes: 3 6416 CAPILLARY BLOOD DRAW, 97238 CBC WITH AUTO DIFF * Follow Up: p rn * Images: Billing Information: * Visit Code: 32257 Office Visit, Est Pt., Level 3. * Procedure Codes: 69108 CAPILLARY BLOOD DRAW. 92912 CBC WITH AUTO DIFF. * Electronic signature of MARY Solitario on 04/16/2025 at 04:11 PM EST Sign off status: Pending * Provider: MARY Do Date: 0 10/30/2024 Generated for Ceci banks/Nancy/Emily on: 1 06/16/2024 04:11 PM EST History and Physical Notes * HPI (History of Present Illness) Category Sub-Category Detail Notes Category Not es ENT/respiratory sore throat cough Pt presents today wi th c/o sore throat and post nasal drainage. Pt sts that she is coughing up some yellow sputum. Pt sts that she just started feeling bad Monday evening. Pt sts that she has been more prone to bacterial infections Examination Category Sub-Category Detail Notes Category Not es ENT/Respiratory Oral cavity : erythema without exudate on pharynx Sinuses : non tender bilateral ly Ears: auditory canals norm al bilaterally, TM's WNL Neck : no cervical lymphade nopathy Heart : RRR, normal S1 S2, n o murmurs Lungs: clear to auscultatio n bilaterally General Appearance: NAD Nose : turbinates red, daniel ested
--- OUTSIDE RECORDS SUMMARY | 2025-01-08 11:00 | XMS_ITS ---
Author Organization [facility] Address [address] [place] [id number] Care Team Providers Care Engine Inspector Name Role Phone Joey Lora Primary Care Provider Tammy Kelley Eladio Estrada [phone] Allergies Allergen (clinical drug ingredient) Drug/Non Drug Allergy documented on EMR Reaction Allergy Type Onset Date Status methimazole methIMAzole mouth sores Drug Allergy A ctive Results Component Value Reference Range Notes CBC Venipuncture (in house) Reviewed date:01/09/2025 08:07:12 AM Interpretation: Performing Lab: Notes/Report: wbc 7.5 3.5 - 10 lymph 34.3 15 - 50 mid 8.0 2 - 15 gran 57.7 35 - 80 rbc 3.88 3.5 - 5.5 hgb 12.6 11.5 - 16.5 hct 37.0 35 - 55 mcv 95.2 75 - 100 mch 32.4 25 - 35 mchc 34.0 31 - 38 platlet 279 100 - 400 P-Levetiracetam Reviewed date:01/13/2025 08:55:27 AM Interpretation:9.5 Performing Lab: Notes/Report: Levetiracetam 9.5 10.0-40.0 ug/mL INTERPRETIVE INFORMATION: Keppra (Levetiracetam) Therapeutic Range: 10-40 ug/mL Toxic: Not well Established Pharmacokinetics of levetiracetam are affected by renal function. Adverse effects may include somnolence, weakness, headache and vomiting. This levetiracetam (Keppra) immunoassay uses the [employer] reagents, which has known cross-reactivity with the drug brivaracetam (Briviact) and may report inaccurate results. Patients transitioning from levetiracetam to brivaracetam or those who are using both medications should not monitor drug concentrations with the [employer] assay. These patients should be monitored using a validated chromatographic methodology that distinguishes between drugs to determine drug concentrations. Performed By: [facility] [address] [place] [id number] Therapy Site Coordinator: Darnell Mojica MD, PhD CLIA Number: [id number] REASON FOR VISIT sore throat, labs Medications Medication SIG (Take, Route, Frequency, Duration) Notes Start Date End Date Status Norgestimate-Eth Estradiol 0.25-35 MG-MCG TAKE 1 TABLET BY MOUTH DAILY; Duration: 84 Active Fluticasone Propionate 50 MCG/ACT 1 spray(s) in each nostril Two times a day 07/29/2021 Active SUMAtriptan Succinate 100 MG 1 tablet as needed, may take second dose at least 2 hours after first dose up to 2 tablets per day as needed Orally 09/23/2024 Active Benefiber - as directed orally 2 times a day OTC 09/30/2021 Active Keppra 750 MG 1 tab(s) orally 2 ti mes a day Active Folic Acid 1 MGM 1 TAB QD; Duration: 30 DAYS Active Magnesium 400 MG as directed Orally Active Vitamin B12 1000 MCG 1 tablet Orally Onc e a day Active Benzonatate 200 MG 1 capsule Orally Three times a day As needed 01/08/2025 Active Problems Problem Type SNOMED Code ICD Code Onset Dates Problem Status W/U Status Risk Notes Problem Seizure disorder (276908044) Seizure disorder (G40.909) Active confirmed Vital Signs Weight 203 lbs 01/08/2025 Blood pressure systolic 114 mm Hg 01/09/20 25 Blood pressure diastolic 64 mm Hg 025 Heart Rate 102 /min 01/08/2025 Height 67.25 in 01/08/2025 BMI 31.55 kg/m2 01/08/2025 Encounters Encounter Location Date Provider Diagnosis [facility] [address] [place], [place] [id number] 01/08/2025 Joey Lora Acute URI J06.9 ; Seizure disorder G40.909 and termite control representative use of drug Z79.899 Assessments Encounter Date Diagnosis (ICD Code) Assessment Notes Treatment Notes Treatment Clinical Notes Section Notes 01/08/2025 Acute URI (ICD-10 - J06.9) 01/08/2025 Seizure disorder (ICD-10 - G40.909) 01/08/2025 penitentiary use of drug (ICD-10 - Z79.899) Plan Of Treatment Medication Medication Name Sig Start Date Stop Date Notes Benzonatate 200 MG 1 capsule Orally Three times a day 12/12 Next Appt Details Follow Up: via phone to repo rt test results, Reason: Provider Name:Joey Stauffer ry, 06/16/2025 04:15:00 PM, [address], [place], [place], [id number], Progress Notes * MANDUJANO JessicamikeDOB:2000 ( 24 yo F)Acc No.hhhhhhhhhhhhDOS:01/08/2025 Progress Notes Patient: Chaya WEAVER Account Number:[id number] Provider: Popeye Lora M.D. :2000 A ge:24 Y S ex:Female Date:01/08/2025 Address:[address] [place] [address], [id number] Subjective: * Chief Complaints: * 1 . Sore throat, labs. * HPI: E NT/respiratory: 24 year old female presents with c/o cough P t complains of small amount of white sputum cough that started Monday. Associated with nasal congestion . ? H PI: c/o Patient is here today for P t currently taking Keppra and states she is due for lab work. * ROS: D ERMATOLOGY: no R peter. n o H saniya. G ASTROENTEROLOGY: no N ausea. n o V omiting. U ROLOGY: no D ifficulty urinating. n o B lood in urine. * 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: S eizures, ADHD-Hyperactive/Impulsive, Cardiac Murmur, Hyperthyroidism - followed by endo. * Surgical History: D enies Past Surgical History. * Hospitalization/Major Diagno stic Procedure: T egretol Toxicity 08/2008, LT Foot Tendon Tear- Sports Medicine 03/21/2017, [facility] ER - Extreme Fatigue 03/03/2024. * Family [...] nostril Two times a day , Taking SUMAtriptan Succinate 100 MG Tablet 1 tablet as needed, may take second dose at least 2 hours after first dose up to 2 tablets per day as needed Orally , Taking Norgestimate-Eth Estradiol 0.25-35 MG-MCG Tablet TAKE 1 TABLET BY MOUTH DAILY , Discontinued Zithromax Z-Gil 250 MG Tablet 2 pills first day then one daily for 4 days orally as directed , Discontinued Benzonatate 200 MG Capsule 1 capsule as needed Orally Three times a day, prn , Medication List reviewed and reconciled with the patient * Allergies: m ethIMAzole: mouth sores - Allergy. Objective: * Vitals: W t: 203, Temp: 97.9, BP: 114/64, HR: 102, O2 Sat: 98% on RA, Nurse: lola, Ht: 67.25, BMI:31.55. * Examination: E NT/Respiratory: General Appearance: N AD. E yes: P ERRLA, sclera clear. O ral cavity : e rythema without exudate on pharynx. N marek : n o cervical lymphadenopathy. H eart : R RR. L ungs: c lear to auscultation bilaterally. ? Assessment: * Assessment: 1. A diego URI - J06.9 (Primary) 2 . S eizure disorder - G40.909 ?3. L tello term use of drug - Z79.899 Plan: * Treatment: Value Reference Range w bc 7.5 3.5 - 10 * l ymph 34.3 15 - 50 * m id 8.0 2 - 15 * g ran 57.7 35 - 80 * r bc 3.88 3.5 - 5.5 * h gb 12.6 11.5 - 16.5 * h ct 37.0 35 - 55 * m cv 95.2 75 - 100 * m ch 32.4 25 - 35 * m chc 34.0 31 - 38 * p latlet 279 100 - 400 * Yasmine Johnson 01/08/2025 0 4:42:51 PM EDT > Provider reviewed results while patient in office. 2.?Seizure disorder?LAB: P-Levetiracetam (Collection Date & Time - 01/09/2025 08:05 AM)?9.5* Value Reference Range L evetiracetam 9.5 L 10.0-40.0 - ug/mL * Annabelle Lyle 01/13/2025 08:55 :21 AM EDT > See phone encounter 3.?termite control representative use of drug?LAB: P-Levetiracetam (Collection Date & Time - 01/09/2025 08:05 AM)?9.5* Value Reference Range L evetiracetam 9.5 L 10.0-40.0 - ug/mL * Annabelle Lyle 01/13/2025 08:55 :21 AM EDT > See phone encounter * Procedure Codes: 8 5025 CBC WITH AUTO DIFF * Follow Up: v ia phone to report test results * Images: Billing Information: * Visit Code: 45027 Office Visit, Est Pt., Level 3. * Procedure Codes: 03604 CBC WITH AUTO DIFF. * Electronic signature of Nimo Lora MD on 04/16/2025 at 04:10 PM EST Sign off status: Pending * Provider: Popeye Lora M.D. Date: 0 01/08/2025 Generated for Ceci banks/Nancy/Emily on: 06/16/2024 04:10 PM EST History and Physical Notes * HPI (History of Present Illness) Category Sub-Category Detail Notes Category Not es ENT/respiratory cough Pt complains of small amount of white sputum cough that started Monday. Associated with nasal congestion HPI Patient is here today for Pt cur rently taking Keppra and states she is due for lab work Examination Category Sub-Category Detail Notes Category Not es ENT/Respiratory Oral cavity : erythema without exudate on pharynx Neck : no cervical lymphade nopathy Heart : RRR Lungs: clear to auscultatio n bilaterally General Appearance: NAD Eyes: PERRLA, sclera clear
--- OUTSIDE RECORDS SUMMARY | 2025-02-03 12:30 | XMS_ITS ---
[facility] [address] [place] [id number] Care Team Providers Care Automatic Transmission Mechanic Name Role Phone Joey Lora Primary Care Provider Tammy Kelley [phone] Allergies Allergen (clinical drug ingredient) Drug/Non Drug Allergy documented on EMR Reaction Allergy Type Onset Date Status methimazole methIMAzole mouth sores Drug Allergy A ctive Reason For Referral Diagnosis 1 Thyromegaly (E04.9) Diagnosis 2 Thyroiditis, chronic (E06.5) Referral Organization [facility] Referring Provider First Name Joey Referring Provider Last Name Geno Referring Provider [facility] ctice Referred Provider Dwayne Goins Referred Provider Specialty Endocrinolog y General Notes Fernanda Moses 2024 09:54:47 AM > faxed to [facility] Endocrinology Referral Priority Routine Reason Cardiology at [facility] Diagnosis 1 Sinus tachycardia (R 00.0) Diagnosis 2 PFO (patent foramen ovale) (Q21.12) Diagnosis 3 AP window (aortopulm onary window) (Q21.4) Referral Organization [facility] Referring Provider First Name Joey Referring Provider Last Name Geno Referring Provider [facility] ctice Referred Provider Cardiology, . Referred Provider Specialty Cardiovascul ar Disease General Notes Fernanda Moses 2024 09:57:15 AM > faxed to [facility] Cardiology Referral Priority Routine REASON FOR VISIT Blurred Vision Medications Medication SIG (Take, Route, Frequency, Duration) [...] per day as needed Orally 09/23/2024 Active Keppra 750 MG 1 tab in the AM, 2 t abs in the PM orally; Duration: 90 days Active Benzonatate 200 MG 1 capsule Orally Three times a day As needed 01/08/2025 Active Benefiber - as directed orally 2 times a day OTC 09/30/2021 Active Folic Acid 1 MGM 1 TAB QD; Duration: 30 DAYS Active Vitamin B12 1000 MCG 1 tablet Orally Onc e a day Active Magnesium 400 MG as directed Orally Active Vital Signs Weight 207 lbs 02/03/2025 Blood pressure systolic 122 mm Hg 02/04/20 25 Blood pressure diastolic 64 mm Hg 025 Heart Rate 77 /min 02/03/2025 Height 67.25 in 02/03/2025 BMI 32.18 kg/m2 02/03/2025 Encounters Encounter Location Date Provider Diagnosis [facility] [address] [facility] [address] [place] [phone] 02/03/2025 Joey Lora Frequent headaches R51.9 ; Blurry vision H53.8 ; Chronic thyroiditis E06.5 ; Sinus tachycardia R00.0 ; AP window (aortopulmonary window) Q21.4 and PFO (patent foramen ovale) Q21.12 Assessments Encounter Date Diagnosis (ICD Code) Assessment Notes Treatment Notes Treatment Clinical Notes Section Notes 02/03/2025 Frequent headaches (ICD-10 - R51.9) IIH? [facility] 02/03/2025 Blurry vision (ICD-10 - H53.8) 02/03/2025 Chronic thyroiditis (ICD-10 - E06.5) 02/03/2025 Sinus tachycardia (ICD-10 - R00.0) Cardiology at [facility] 02/03/2025 AP window (aortopulmonary window) (ICD-10 - Q21.4) 02/03/2025 PFO (patent foramen ovale) (ICD-10 - Q21.12) 02/03/2025 Other Plan Of Treatment Treatment Notes Assessment Notes Frequent headaches IIH? [facility] Sinus tachycardia Cardiology at [facility] Referrals Referral Date Details 02/11/2025 02/11/2025, Dwayne Rauschsona 02/11/2025 02/11/2025, Cardiolo gy at [facility], . Cardiology Next Appt Details Follow Up: via phone to repo rt progress, Reason: Provider Name:Joey Stauffer ry, 06/16/2025 04:15:00 PM, [address], [address], [place], [id number], Progress Notes * Chaya MANDUJANOB:2000 ( 24 yo F)Acc No.[id number]:02/03/2025 Progress Notes Patient: Chaya WEAVER Account Number:[id number] Provider: Popeye Lora M.D. :2000 A ge:24 Y S ex:Female Date:02/03/2025 Address:[address] [place] [address], [phone] Subjective: * Chief Complaints: * 1 . Blurred Vision. * HPI: O pthalmology: 24 year old female presents with c/o blurring of vision P t complains of blurry vision at least 1-2 times per day. Pt states she does get migraines and has never had issues with her vision until recently. Pt states her vision just goes blurry with and without having a migraine. * ROS: D ERMATOLOGY: no R peter. [...] LT Foot Tendon Tear- Sports Medicine 03/21/2017, [facility] ER - Extreme Fatigue 03/03/2024. * Family History: F ather: alive 51 yrs. M other: alive 48 yrs. P aternal Grand Father: alive. P aternal Grand Mother: alive. M aternal Grand Father: alive. M aternal Grand Mother: alive. 1 sister(s) - healthy. . * Social History: C URRENT TOBACCO USE: No S moking Status: Patient does NOT smoke. [...] tablet Orally Once a day , Taking Folic Acid 1 MGM 1 TAB QD , Taking Benefiber - Powder as directed orally 2 times a day , Notes to Pharmacist: OTC, Taking Fluticasone Propionate 50 MCG/ACT Suspension 1 spray(s) in each nostril Two times a day , Taking Norgestimate-Eth Estradiol 0.25-35 MG-MCG Tablet TAKE 1 TABLET BY MOUTH DAILY , Taking Benzonatate 200 MG Capsule 1 capsule Orally Three times a day As needed, Taking Keppra 750 MG Tablet 1 tab in the AM, 2 tabs in the PM orally , Taking SUMAtriptan Succinate 100 MG Tablet 1 tablet as needed, may take second dose at least 2 hours after first dose up to 2 tablets per day as needed Orally , Medication List reviewed and reconciled with the patient * Allergies: m ethIMAzole: mouth sores - Allergy. Objective: * Vitals: W t: 207, Temp: 98.1, BP: 122/64, HR: 77, Nurse: lola, Ht: 67.25, BMI:32.18. * Examination: G eneral Examination: General Appearance: N AD. H eart: R SR. L ungs:?clear to auscultation. N eurologic Exam: a lert and oriented, conversant, no focal deficits, normal sensation and strength, gait normal. E xtremities: n o leg edema. ? Assessment: * Assessment: 1. F requent headaches - R51.9 (Primary) 2 . B lurry vision - H53.8 ? 3 . C hronic thyroiditis - E06.5 4 . S inus tachycardia - R00.0? 5. A P window (aortopulmonary window) - Q21.4 6 . P FO (patent foramen ovale) - Q21.12 Plan: * Treatment: 2. S inus tachycardia Notes: Cardiology at [facility] Referral To:. Cardiology Cardiovascular Disease Reason:Cardiology at [facility] 3. A P window (aortopulmonary window) Referral To:. Cardiology Cardiovascular Disease Reason:Cardiology at [facility] 4. P FO (patent foramen ovale) Referral To:. Cardiology Cardiovascular Disease Reason:Cardiology at [facility] 5. O thers Referral To:Dwayne Goins Endocrinology Reason: * Procedure Codes: 1 036F TOBACCO NON-USER, 3074F SYST BP LT 130 MM HG, 3078F DIAST BP < 80 MM HG * Follow Up: v ia phone to report progress * Images: Billing Information: * Visit Code: 39299 Office Visit, Est Pt., Level 4. * Procedure Codes: 1036F TOBACCO NON-USER. 3074F SYST BP LT 130 MM HG. 3078F DIAST BP < 80 MM HG. * Electronic signature of Nimo Lora MD on 04/16/2025 at 04:09 PM EST Sign off status: Pending * Provider: Popeye Lora M.D. Date: 0 02/03/2025 Generated for Ceci banks/Nancy/Emily on: 06/16/2024 04:09 PM EST History and Physical Notes * HPI (History of Present Illness) Category Sub-Category Detail Notes Category Not es Opthalmology blurring of vision Pt complains of blurry vision at least 1-2 times per day. Pt states she does get migraines and has never had issues with her vision until recently. Pt states her vision just goes blurry with and without having a migraine Examination Category Sub-Category Detail Notes Category Not es General Examination Heart: RSR Lungs: clear to auscultatio n Extremities: no leg edema General Appearance: NAD Neurologic Exam: alert and oriented, conversant, no focal deficits, normal sensation and strength, gait normal Consultation Request Notes Referral Date Referring Provider Referred Provider Not es 02/11/2025 Joey Lora Samhitha 02/11/2025 Joey Lora Cardiology, . Cardiology at [facility]
--- OUTSIDE RECORDS SUMMARY | 2025-02-17 14:00 | XMS_ITS | Encounter Summary ---
Author Organization [facility] Address [address] [place] [id number] Care Team Providers Care Osteopathic Physician Name Role Phone Joey Lora MD Primary Care Provider + [phone] Reason for Referral * Diagnostic Imaging (Routine) - Closed Specialty Diagnoses / Procedures Referred By Contac t Referred To Contact Diagnoses Syncope and collapse Procedures Adult Transthoracic Echo Complete W/ Cont if Necessary Per Protocol ND ECHO TTHRC R-T 2D W/WOM-MODE COMPL SPEC&COLR D ND ECHO TRANSTHORC R-T 2D W/WO M-MODE REC F-UP/LMTD Charley Kim APRN [address] [facility] [address] [place] [address] Phone: tel: fax: Referral ID Status Reason Start Date Expiration Date Visits Re quested Visits Authorized [id number] Closed 02/17/2025 05/19/2026 1 1 Reason for Visit * Reason Comments Establish Care * Consultation (Routine) - Closed Specialty Diagnoses / Procedures Referred By Contac t Referred To Contact Cardiology Diagnoses Sinus tachycardia AP window (aortopulmonary window) Referring, [place] [address] Charley Kim APRN [address] [place] [address] Phone: tel: fax: Referral ID Status Reason Start Date Expiration Date Visits Re quested Visits Authorized [id number] Closed 02/06/2025 05/08/2026 1 1 Encounter Details Date Type Department Care Team (Late st Contact Info) Description 02/17/2025 3:00 PM EDT Office Visit [facility] [address] [place] [address] Kim Charley Draper, AGRICULTURAL PLOW OPERATOR [address] [place] [id number] Syncope and collapse (Primary Dx); Tachycardia; PFO (patent foramen ovale) Social History Tobacco Use Types Packs/Day Years Used Date Smoking Tobacco: Never Passive Smoke Exposure: Never Smokeless Tobacco: Never Tobacco Cessation:Counseling Given: No Alcohol Use Standard Drinks/Week Comments Never 0 (1 standard drink = 0.6 oz pur e alcohol) Abuse Screen Answer Date Recorded Unsafe at Home or Work/School Not on file Feels Threatened by Someone? Not on file 08/2023 Does Anyone Keep You from Co ntacting Others or Doint Things Outside the Home? Not on file 03/14/2024 Physical Sign of Abuse Present Not on file 1 Housing Stability Answer Date Recorded Current Living Arrangements Not on file 08/2023 Potentially Unsafe Housing Conditions Not on qi e 03/14/2024 Family and Community Support Answer Ankur e Recorded Help with Day-to-Day Activities Not on file 03/14/2024 Lonely or Isolated Not on file 03/14/2024 Employment Answer Date Recorded Do you want help finding or keeping work or a cherelle b? Not on file 03/14/2024 Disabilities Answer Date Recorded Concentrating, Remembering, or Making Decisions Difficulty Not on file 03/14/2024 Doing Errands Independently Difficulty Not on fi le 03/14/2024 Education Answer Date Recorded Help with school or training? Not on file Preferred Language Not on file 03/14/2024 Comments Unknown Sex and Gender Information Value Date Recorded Sex Assigned at Not on file Legal Sex Female 12:24 PM EDT Gender Identity Not on file Sexual Orientation Not on file documented as of this encounter Last Filed Vital Signs Vital Sign Reading Time Taken Comments Blood Pressure 128/84 02/17/2025 2:37 PM EDT Pulse 88 02/17/2025 2:37 PM EDT Temperature - - Respiratory Rate - - Oxygen Saturation 98% 02/17/2025 2:37 PM EDT Inhaled Oxygen Concentration - - Weight 93.2 kg (205 lb 8 oz) 02/17/2025 2:37 PM EDT Height 167.6 cm (5' 6 ) 02/17/2025 2:37 PM EDT Body Mass Index 33.17 02/17/2025 2:37 PM EDT documented in this encounter Progress Notes * Kim Charley S, AGRICULTURAL PLOW OPERATOR - 02/17/2025 3:00 PM EDTAssociated Order(s): ECG 12 Lead Post-Procedure Diagnose(s): Syncope and collapse [facility] Cardiology Consultation H&P Chaya Mandujano 2000 [address] [place] [address] Visit date: 02/17/25 PCP: Joey Lora MD [address] [facility] [address] [facility] [place] [address] Identification: A 24 y.o. 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 (follows with [facility]) 04/04 MRI brain w/o contrast asymmetric T2/FLAIR hyperintensity in the right mesial temporal/hippocampal structures and right inferior temporal lobe Thyroid nodules, subcentimeter bilateral lobes-followed by endocrinology Migraines Heavy menses, OCP since 2018 Cardiac Risk Factors: obesity (BMI >= 30 kg/m2) and sedentary lifestyle CC: Chief Complaint Patient presents with Establish Care Allergies Allergies Allergen Reactions Methimazole Anaphylaxis and Other (See Comments) Mouth sores Oral lesions Current Medications Current Outpatient Medications Medication Instructions Biotin 5 MG tablet 1 tablet, Nightly Cholecalciferol 2,000 Units, Every Evening Cyanocobalamin (Vitamin B12) 1000 MCG tablet controlled-release 1 tablet, Daily ferrous sulfate 325 mg, Daily With Breakfast folic acid (FOLVITE) 1 MG tablet 1 tablet, Daily levETIRAcetam (KEPPRA XR) 1,500 mg, Daily Magnesium 400 mg, As Needed midodrine (PROAMATINE) 2.5 mg, Oral, 3 Times Daily Before Meals polyethylene glycol (MIRALAX) 17 g, Daily SUMAtriptan (IMITREX) 100 MG tablet 1 tablet as needed, may take second dose at least 2 hours afterfirst dose up to 2 tablets per day as needed Orally *Unknown OCP History of Present Illness HPI Chaya Mandujano is a 24 y.o. year old female with the above mentioned PMH who presents self-referred for evaluation of syncope. Prior evaluation included benign Holter and positive tilt table test performed at outside hospitals per neurology. She states last February she began having issues with dizziness and palpitations. In May while at [employer]uism she began having palpitations associated with near syncope and diaphoresis. She was evaluated in the ER and told she had thyroid problems. She followed up with endocrinology who diagnosed her with a chronic thyroiditis however she was intolerant to methimazole and no further treatment was recommended. Thyroid studies since have been normal and confirmed by second endocrinology opinion. She follows with neurology for her epilepsy which is well-controlled on Keppra and recently had overnight monitoring. No seizures thought to be the cause of syncope or palpitations. Symptoms of palpitations and dizziness occur daily. She is on her feet most of the day or seated on the floor with preschoolers. She typically experiences symptoms when she gets up or changes positions. She denies excess caffeine intake and tries to drink water to stay hydrated. She has trouble staying asleep and reports poor sleep quality. She has not been exercising due to symptoms until evaluation with cardiology. She does report some stress and anxiety related to schooland work. Heavy menses noted in the past however controlled currently on OCP. Pt denies any chest pain, dyspnea at rest, dyspnea on exertion, orthopnea, PND, lower extremity edema, or claudication. Pt denies history of CHF, DVT, PE, ME, CVA, TIA, or rheumatic fever. ROS Review of Systems Constitutional: Positive for diaphoresis and malaise/fatigue. Eyes: Positive for blurred vision and visual disturbance. Cardiovascular: Positive for irregular heartbeat, near-syncope, palpitations and syncope. Neurological: Positive for headaches and sensory change. Psychiatric/Behavioral: The patient is nervous/anxious. All other systems reviewed and are negative. Social History: Social History Socioeconomic History Marital status: Single Tobacco Use Smoking status: Never Passive exposure: Never Smokeless tobacco: Never Vaping Use Vaping status: Never Used Substance and Sexual Activity Alcohol use: Never Drug use: Never Sexual activity: Defer Family History: Family History Problem Relation Age of Onset Other (HTN) Mother Other (THYROID) Father Other (SINUS TACHYCARDIA) Paternal Grandmother Objective: Vitals: 02/17/25 1437 BP: 128/84 BP Location: Left arm Patient Position: Sitting Cuff Size: Adult Pulse: 88 SpO2: 98% Weight: 93.2 kg (205 lb 8 oz) Height: 167.6 cm (66 ) Body mass index is 33.17 kg/m??. Wt Readings from Last 3 Encounters: 02/17/25 93.2 kg (205 lb 8 oz) Physical Examination: Vitals reviewed. Constitutional: Appearance: Healthy appearance. Neck: Vascular: No JVD. JVD normal. Pulmonary: Effort: Pulmonary effort is normal. Breath sounds: Normal breath sounds. Chest: Chest wall: Not tender to palpatation. Cardiovascular: Normal rate. Regular rhythm. Normal S1. Normal S2. Murmurs: There is no murmur. No gallop. No rub. Pulses: Intact distal pulses. Edema: Peripheral edema absent. Skin: General: Skin is warm and dry. Neurological: General: No focal deficit present. Mental Status: Alert and oriented to person, place and time. Psychiatric: Behavior: Behavior is cooperative. Diagnostic Data: Echocardiogram, 05/27/2020 Very tiny AP window with an insignificant left to right shunt History of tiny PFO, unable to atrial septum on this study due to artifact Normal LV size, wall thickness, and systolic function No significant valvular abnormalities 30-Day Holter, 10/04/24-11/02/24 () SR-ST, 50-130, avg HR 73, no ectopy Tilt Table Test, 12/19/2024 ([facility]) positive for vasodepressor and neuro-cardioinhibitory response Baseline HR 63 - Sinus rhythm The systolic blood pressure decreased from 127 [...] of consciousness for 30 to 40 seconds. ECG 12 Lead Date/Time: 02/17/2025 4:11 PM Performed by: Charley Kim APRN Authorized by: Charley Kim APRN Comparison: not compared with previous ECG Previous ECG: no previous ECG available Rhythm: sinus rhythm Rate: normal BPM: 62 Conduction: incomplete right bundle branch block QRS axis: normal Clinical impression: non-specific ECG Labs: 01/10/2025 BMP: GLU 89, BUN 11, CR 0.74, NA 138, K4.3, CO2 27 10/03/2024 CBC: WBC 6.73, HGB 13.3, HCT 39.1, PLTS 285 CMP: GLU 106, BUN 8.0, CR 0.60, NA 139, K 4.2, CO2 23, ALB 4.0, AST 19, ALT 15 07/01/2024 TSH: 1.46 Ma.9 Assessment: Diagnosis Plan 1. Syncope and collapse Adult Transthoracic Echo Complete W/ Cont if Necessary Per Protocol ECG 12 Lead 2. Tachycardia 3. PFO (patent foramen ovale) Avg HR on monitor 73 Tilt table showed drop in HR from 104 to 39 with associated syncope Plan: Check Echocardiogram to rule out structural heart disease. Use of smart watch for episodic monitoring. Handouts afforded to her today. Will try midodrine 2.5 mg three times daily before meals Education Typically affects women, age 15-50 years old, most first experiencing symptoms in their adolescence Majority causes: dehydration, deconditioning/sedentary lifestyle Rare causes: neuroendocrine dysfunction, neuropathy, autoimmune disorders Symptoms: palpitations, lightheadedness/dizziness, vision changes, generalized weakness/fatigue, brain fog, anxiety, shortness of breath, chest pain, flushing, sweating, headache, nausea, feeling like you will pass out or passing out. Management: Target fluid intake to 3 L per day Daily salt intake 8 - 12 grams per day (tablet salt, sports beverages, electrolyte replacement, etc) Avoid hot showers Exercise: start with recumbent bike, rowing machine, or swimming pool as most people with severe symptoms will not tolerate exercise in the upright position Exercise should also include lower extremity resistance/strength training to reduce venous pooling and increase vascular tone. Avoid prolonged bedrest, manage anxiety/depression, improve sleep quality Use of knee high compression stockings Change positions slowly and get down if you have symptoms to avoid falls/injury. Most patients improve with conservative measures or spontaneously, however, many patients may be subject to occasional flares or recurrence. *Up-to-date used as reference, 05/01/2024* Results will be communicated to the patient and we will schedule follow up in 6 weeks, sooner as needed. Encouraged to contact office with any questions or concerns. Charley Kim APRN 02/17/25 16:50 EDT documented in this encounter Plan of Treatment Upcoming Encounters Date Type Department Care Team (Late st Contact Info) Description 10/06/2025 3:15 PM EDT Office Visit [facility] C[facility] [address] [facility] [place] [address] Charley Kim APRN [address] [facility] [address] [place] [address] documented as of this encounter Procedures Procedure Name Priority Date/Time Associated Diagnosis Comments ECG 12-LEAD Routine 02/17/2025 Syncope and collapse documented in this encounter Results * ECHO COMPLETE W/ DOPPLER AND COLOR FLOW (04/07/2025 3:10 PM EDT) EF(MOD-bp) 73.3 % LVIDd 5.0 cm LVIDs 2.9 cm IVSd 0.80 cm LVPWd 0.80 cm FS 42.0 % IVS/LVPW 1.00 cm ESV(cubed) 24.4 ml LV Sys Vol (BSA corrected) 11.1 cm2 EDV(cubed) 125.0 ml LV Hurd Vol (BSA corrected) 43.7 cm2 LV mass(C)d 135.8 grams LVOT area 3.1 cm2 LVOT diam 2.00 cm EDV(MOD-sp2) 71.1 ml EDV(MOD-sp4) 88.2 ml ESV(MOD-sp2) 21.6 ml ESV(MOD-sp4) 22.3 ml SV(MOD-sp2) 49.5 ml SV(MOD-sp4) 65.9 ml SVi(MOD-SP2) 24.5 ml/m2 SVi(MOD-SP4) 32.7 ml/m2 SVi (LVOT) 48.9 ml/m2 EF(MOD-sp2) 69.6 % EF(MOD-sp4) 74.7 % MV E max dennis 107.0 cm/sec MV A max dennis 45.1 cm/sec MV dec time 0.35 sec MV E/A 2.37 IVRT 63.0 ms LA ESV Index (BP) 16.9 ml/m2 Med Peak E' Dennis 11.6 cm/sec Lat Peak E' Dennis 19.8 cm/sec TR max dennis 234.5 cm/sec Avg E/e' ratio 6.82 SV(LVOT) 98.6 ml RV Base 3.4 cm RV Mid 3.0 cm RV Length 7.4 cm TAPSE (>1.6) 2.7 cm RV S' 11.2 cm/sec LA dimension (2D) 3.3 cm LV V1 max 134.0 cm/sec LV V1 max PG 7.2 mmHg LV V1 mean PG 4.0 mmHg LV V1 VTI 31.4 cm Ao pk dennis 166.0 cm/sec Ao max PG 11.0 mmHg Ao mean PG 6.0 mmHg Ao V2 VTI 36.8 cm BARTOLO(I,D) 2.7 cm2 Dimensionless Index 0.85 (DI) MV dec slope 305.0 cm/sec2 MR max dennis 518.0 cm/sec MR max PG 107.3 mmHg MR mean dennis 424.0 cm/sec MR mean PG 79.0 mmHg MR VTI 177.0 cm TR max PG 22.1 mmHg PA V2 max 129.0 cm/sec PA acc time 0.19 sec Ao root diam 2.6 cm BH CV ECHO SHUNT ASSESSMENT PERFORMED (HIDDEN SCRIPTING) 1 RVSP(TR) 25 mmHg RAP systole 3 mmHg Anatomical Region Laterality Modality Ultrasound Narrative 04/08/2025 9:56 AM EDT Left ventricular ejection fraction appears to be 61 - 65%. Left ventricular diastolic function was normal. Mild mitral valve regurgitation is present. Saline test results are negative. Estimated right ventricular systolic pressure from tricuspid regurgitation is normal (<35 mmHg). Left Ventricle Left ventricular ejection fraction appears to be 61 - 65%. Normal left ventricular cavity size and wall thickness noted. All left ventricular wall segments contract normally. Left ventricular diastolic function was normal. Right Ventricle Normal right ventricular cavity size noted. Left Atrium Normal left atrial cavity size noted. The interatrial septum appears redundant. Saline test results are negative. Right Atrium Normal right atrial cavity size noted. Mitral Valve The mitral valve is normal in structure. Mild mitral valve regurgitation is present. Tricuspid Valve The tricuspid valve is normal in structure. Trace to mild tricuspid valve regurgitation is present. Estimated right ventricular systolic pressure from tricuspid regurgitation is normal (<35 mmHg). Aortic Valve The aortic valve is structurally normal with no regurgitation present. The aortic valve appears trileaflet. Pulmonic Valve The pulmonic valve is structurally normal. There is trace pulmonic valve regurgitation present. Pericardium There is no evidence of pericardial effusion. . Greater Vessels No dilation of the aortic root is present. No dilation of the sinuses of Valsalva is present. Study Quality The study is technically good for diagnosis. Shunt Assessment Verbal consent was obtained from the patient for use of agitated saline to assess for shunting. A total of 20 mL of agitated saline was administered. Charley Kim APRN CV ECHO ORDERABLES Patti l Result * ECG 12-LEAD (02/17/2025) Narrative 02/17/2025 Charley Kim APRN 02/18/2025 9:02 AM ECG 12 Lead Date/Time: 02/17/2025 4:11 PM Performed by: Charley Kim APRN Authorized by: Charley Kim APRN Comparison: not compared with previous ECG Previous ECG: no previous ECG available Rhythm: sinus rhythm Rate: normal BPM: 62 Conduction: incomplete right bundle branch block QRS axis: normal Clinical impression: non-specific ECG Procedure Note Charley Kim APRN - 02/17/2025 3:00 PM EDT [facility] Cardiology Consultation H&P Chaya Mandujano 2000 [address] [place] [address] Visit date: 02/17/25 PCP: Joey Lora MD [address] [place] [address] Identification: A 24 y.o. female, full-time student and works full-time [employer]. Online courses in education at [employer] Problem List: Syncope 11/03 30 day Holter: SR-ST, no ectopy 01/03 TTT: Positive tilt table study for both vasodepressive andcardioinhibitory response ASD Dx as , annual echos with Dr. Ortiz until 2019 Epilepsy, no seizure since age 11 Right mesial temporal sclerosis and right anterior inferior corticaldysplasia (follows with [facility]) 04/04 MRI brain w/o contrast asymmetric T2/FLAIR hyperintensity in theright mesial temporal/hippocampal structures and right inferior temporallobe Thyroid nodules, subcentimeter bilateral lobes-followed by endocrinology Migraines Heavy menses, OCP since 2017 Cardiac Risk Factors: obesity (BMI >= 30 kg/m2) and sedentary lifestyle CC: Chief Complaint Patient presents with Establish Care Allergies Allergies Allergen Reactions Methimazole Anaphylaxis and Other (See Comments) Mouth sores Oral lesions Current Medications Current Outpatient Medications Medication Instructions Biotin 5 MG tablet 1 tablet, Nightly Cholecalciferol 2,000 Units, Every Evening Cyanocobalamin (Vitamin B12) 1000 MCG tablet controlled-release 1 tablet,Daily ferrous sulfate 325 mg, Daily With Breakfast folic acid (FOLVITE) 1 MG tablet 1 tablet, Daily levETIRAcetam (KEPPRA XR) 1,500 mg, Daily Magnesium 400 mg, As Needed midodrine (PROAMATINE) 2.5 mg, Oral, 3 Times Daily Before Meals polyethylene glycol (MIRALAX) 17 g, Daily SUMAtriptan (IMITREX) 100 MG tablet 1 tablet as needed, may take seconddose at least 2 hours after first dose up to 2 tablets per day as neededOrally *Unknown OCP History of Present Illness HPI Chaya Mandujano is a 24 y.o. year old female with the above mentioned PMH whopresents self-referred for evaluation of syncope. Prior evaluationincluded benign Holter and positive tilt table test performed at outsidehospitals per neurology. She states last February she began havingissues with dizziness and palpitations. In May while at [employer] [place] having palpitations associated with near syncope and diaphoresis.She was evaluated in the ER and told she had thyroid problems. Shefollowed up with endocrinology who diagnosed her with a chronicthyroiditis however she was intolerant to methimazole and no furthertreatment was recommended. Thyroid studies since have been normal andconfirmed by second endocrinology opinion. She follows with neurology forher epilepsy which is well-controlled on Keppra and recently had overnightmonitoring. No seizures thought to be the cause of syncope orpalpitations. Symptoms of palpitations and dizziness occur daily. She elijah her feet most of the day or seated on the floor with preschoolers. Shetypically experiences symptoms when she gets up or changes positions. Shedenies excess caffeine intake and tries to drink water to stay hydrated.She has trouble staying asleep and reports poor sleep quality. She hasnot been exercising due to symptoms until evaluation with cardiology. Shedoes report some stress and anxiety related to school and work. Heavymenses noted in the past however controlled currently on OCP. Pt denies any chest pain, dyspnea at rest, dyspnea on exertion, orthopnea,PND, lower extremity edema, or claudication. Pt denies history of CHF,DVT, PE, ME, CVA, TIA, or rheumatic fever. ROS Review of Systems Constitutional: Positive for diaphoresis and malaise/fatigue. Eyes: Positive for blurred vision and visual disturbance. Cardiovascular: Positive for irregular heartbeat, near-syncope,palpitations and syncope. Neurological: Positive for headaches and sensory change. Psychiatric/Behavioral: The patient is nervous/anxious. All other systems reviewed and are negative. Social History: Social History Socioeconomic History Marital status: Single Tobacco Use Smoking status: Never Passive exposure: Never Smokeless tobacco: Never Vaping Use Vaping status: Never Used Substance and Sexual Activity Alcohol use: Never Drug use: Never Sexual activity: Defer Family History: Family History Problem Relation Age of Onset Other (HTN) Mother Other (THYROID) Father Other (SINUS TACHYCARDIA) Paternal Grandmother Objective: Vitals: 02/17/25 1437 BP: 128/84 BP Location: Left arm Patient Position: Sitting Cuff Size: Adult Pulse: 88 SpO2: 98% Weight: 93.2 kg (205 lb 8 oz) Height: 167.6 cm (66 ) Body mass index is 33.17 kg/m . Wt Readings from Last 3 Encounters: 02/17/25 93.2 kg (205 lb 8 oz) Physical Examination: Vitals reviewed. Constitutional: Appearance: Healthy appearance. Neck: Vascular: No JVD. JVD normal. Pulmonary: Effort: Pulmonary effort is normal. Breath sounds: Normal breath sounds. Chest: Chest wall: Not tender to palpatation. Cardiovascular: Normal rate. Regular rhythm. Normal S1. Normal S2. Murmurs: There is no murmur. No gallop. No rub. Pulses: Intact distal pulses. Edema: Peripheral edema absent. Skin: General: Skin is warm and dry. Neurological: General: No focal deficit present. Mental Status: Alert and oriented to person, place and time. Psychiatric: Behavior: Behavior is cooperative. Diagnostic Data: Echocardiogram, 05/27/2020 Very tiny AP window with an insignificant left to right shunt History of tiny PFO, unable to atrial septum on this study due toartifact Normal LV size, wall thickness, and systolic function No significant valvular abnormalities 30-Day Holter, 10/04/24-11/02/24 () SR-ST, 50-130, avg HR 73, no ectopy Tilt Table Test, 12/19/2024 ([facility]) positive for vasodepressor and neuro-cardioinhibitory response Baseline HR 63 - Sinus rhythm The systolic blood pressure decreased from 127 mmHg to as low as 74 mmHg briefly 18 minutes into the study and quickly increased back to 112 mmHg. The heart rate initially increased from 64 bpm to as high as 104 bpm but decelerated down to 39 bpm 17 minutes into the study and eventuallyincreased back to 60 bpm. The patient experienced lightheadedness, tunnel vision, and transient loss of consciousness for 30 to 40 seconds. ECG 12 Lead Date/Time: 02/17/2025 4:11 PM Performed by: Charley Kim APRN Authorized by: Charley Kim APRN Comparison: not compared withprevious ECG Previous ECG: no previous ECG available Rhythm: sinus rhythm Rate: normal BPM: 62 Conduction: incomplete right bundle branch block QRS axis: normal Clinical impression: non-specific ECG Labs: 01/10/2025 BMP: GLU 89, BUN 11, CR 0.74, NA 138, K4.3, CO2 27 10/03/2024 CBC: WBC 6.73, HGB 13.3, HCT 39.1, PLTS 285 CMP: GLU 106, BUN 8.0, CR 0.60, NA 139, K 4.2, CO2 23, ALB 4.0, AST 19,ALT 15 07/01/2024 TSH: 1.46 Ma.9 Assessment: Diagnosis Plan 1. Syncope and collapse Adult Transthoracic Echo Complete W/ Cont ifNecessary Per Protocol ECG 12 Lead 2. Tachycardia 3. PFO (patent foramen ovale) Avg HR on monitor 73 Tilt table showed drop in HR from 104 to 39 with associated syncope Plan: Check Echocardiogram to rule out structural heart disease. Use of smart watch for episodic monitoring. Handouts afforded to her today. Will try midodrine 2.5 mg three times daily before meals Education Typically affects women, age 15-50 years old, most first experiencingsymptoms in their adolescence Majority causes: dehydration, deconditioning/sedentary lifestyle Rare causes: neuroendocrine dysfunction, neuropathy, autoimmunedisorders Symptoms: palpitations, lightheadedness/dizziness, vision changes,generalized weakness/fatigue, brain fog, anxiety, shortness of breath,chest pain, flushing, sweating, headache, nausea, feeling like you willpass out or passing out. Management: Target fluid intake to 3 L per day Daily salt intake 8 - 12 grams per day (tablet salt, sports beverages,electrolyte replacement, etc) Avoid hot showers Exercise: start with recumbent bike, rowing machine, or swimming pool asmost people with severe symptoms will not tolerate exercise in the uprightposition Exercise should also include lower extremity resistance/strength trainingto reduce venous pooling and increase vascular tone. Avoid prolonged bedrest, manage anxiety/depression, improve sleepquality Use of knee high compression stockings Change positions slowly and get down if you have symptoms to avoidfalls/injury. Most patients improve with conservative measures or spontaneously,however, many patients may be subject to occasional flares orrecurrence. *Up-to-date used as reference, 05/01/2024* Results will be communicated to the patient and we will schedule follow upin 6 weeks, sooner as needed. Encouraged to contact office with anyquestions or concerns. Charley Kim APRN 02/17/25 16:50 EDT Charley Kim AGRICULTURAL PLOW OPERATOR ECG ORDERABLES Final R esult documented in this encounter Visit Diagnoses Diagnosis Syncope and collapse- Primary Tachycardia Unspecified tachycardia PFO (patent foramen ovale) Ostium secundum type atrial septal defect Syncope and collapse documented in this encounter Care Teams Osteopathic Physician Relationship Specialty Start Date End Date Joey Lora MD [facility] [address] [facility] [address] [place] [address] PCP - General Family Medicine 02/06/25 documented as of this encounter
--- OUTSIDE RECORDS SUMMARY | 2025-02-24 12:15 | XMS_ITS ---
Author Organization [facility] Address [address] [facility] [address] [place] [id number] Care Team Providers Care Boilermaker Mechanic Name Role Phone Geno Joey Primary Care Provider Warren Tammy Eladio Estrada [phone] Allergies Allergen (clinical drug ingredient) Drug/Non Drug Allergy documented on EMR Reaction Allergy Type Onset Date Status methimazole methIMAzole mouth sores Drug Allergy A ctive REASON FOR VISIT anxiety meds Medications Medication SIG (Take, Route, Frequency, Duration) Notes Start Date End Date Status Magnesium 400 MG as directed Orally Active Vitamin B12 1000 MCG 1 tablet Orally Onc e a day Active Escitalopram Oxalate 10 MG 1 tablet Oral ly Once a day; Duration: 30 days 02/24/2025 Active Keppra 750 MG 1 tab in the AM, 2 t abs in the PM orally; Duration: 90 days Active SUMAtriptan Succinate 100 MG 1 tablet as needed, may take second dose at least 2 hours after first dose up to 2 tablets per day as needed Orally 09/23/2024 Active Folic Acid 1 MGM 1 TAB QD; Duration: 30 DAYS Active Benefiber - as directed orally 2 times a day OTC 09/30/2021 Active Fluticasone Propionate 50 MCG/ACT 1 spray(s) in each nostril Two times a day 07/29/2021 Active Norgestimate-Eth Estradiol 0.25-35 MG-MCG TAKE 1 TABLET BY MOUTH DAILY; Duration: 84 Active Benzonatate 200 MG 1 capsule Orally Three times a day As needed 01/08/2025 Active Immunizations Vaccine Route Administration Date Status Comme nts Fluzone Quad (6months&older) IM Intramuscular 02/24/2025 Administered Problems Problem Type SNOMED Code ICD Code Onset Dates Problem Status W/U Status Risk Notes Problem Adjustment disorder with mixed anxiety and depressed mood (096829628) Adjustment disorder with mixed anxiety and depressed mood (F43.23) Active confirmed Vital Signs Weight 204.8 lbs 02/24/2025 Blood pressure systolic 118 mm Hg 02/25/20 25 Blood pressure diastolic 70 mm Hg 025 Heart Rate 70 /min 02/24/2025 Height 67.25 in 02/24/2025 BMI 31.83 kg/m2 02/24/2025 Encounters Encounter Location Date Provider Diagnosis [facility] [address] [facility] [address] [facility] [address] [place] [id number] 02/24/2025 Joey Lora Adjustment disorder with mixed anxiety and depressed mood F43.23 and Encounter for immunization Z23 Assessments Encounter Date Diagnosis (ICD Code) Assessment Notes Treatment Notes Treatment Clinical Notes Section Notes 02/24/2025 Adjustment disorder with mixed anxiety and depressed mood (ICD-10 - F43.23) 02/24/2025 Encounter for immunization (ICD-10 - Z23) Plan Of Treatment Medication Medication Name Sig Start Date Stop Date Notes Escitalopram Oxalate 10 MG 1 tablet Oral ly Once a day; Duration: 30 days 02/24/2025 Next Appt Details Follow Up: 3 or 4 weeks, [place] son: Provider Name:Joey Stauffer ry, 06/16/2025 04:15:00 PM, [address] [facility], [address], [place], [id number], Progress Notes * Sirisha MANDUJANO:2000 ( 24 yo F)Acc No.hhhhhhhhhhhhDOS:02/24/2025 Progress Notes Patient: Chaya WEAVER Account Number:[id number] Provider: Popeye Lora M.D. :2000 A ge:24 Y S ex:Female Date:02/24/2025 Address:[address] [place] [address], [place], [id number] Subjective: * Chief Complaints: * 1 . Anxiety meds. * HPI: P sychology: 24 year old female presents with c/o Anxiety P t states she has been having some anxiety. Pt states at times she feels like she is going to have a panic attack. Pt spoke with her neurologist and was advised to take Lexapro or Celexa. * 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: S eizures, ADHD-Hyperactive/Impulsive, Cardiac Murmur, Hyperthyroidism - followed by endo. * Surgical History: D nallely Past Surgical History. * Hospitalization/Major Diagno stic Procedure: T egretol Toxicity 08/2008, LT Foot Tendon Tear- Sports Medicine 03/21/2017, [facility] ER - Extreme Fatigue 03/03/2024. * [...] - Allergy. Objective: * Vitals: W t: 204.8, Temp: 98.1, BP: 118/70, HR: 70, Nurse: lola, Ht: 67.25, BMI:31.83. * Examination: P sychology: General Appearance: N AD. G rooming : a dequate.?Eye contact : n ormal. M ood : p leasant. Assessment: * Assessment: 1. A djustment disorder with mixed anxiety and depressed mood - F43.23 (Primary) ?2. E ncounter for immunization - Z23 Plan: * Treatment: * Immunizations: Fluzone Quad (6months&older) : 0.5 mL (Route: Intramuscular) given by Susi Guzman on Left Deltoid (Encounter for immunization) * Procedure Codes: 1 036F TOBACCO NON-USER, 3074F SYST BP LT 130 MM HG, 3078F DIAST BP < 80 MM HG * Follow Up: 3 or 4 weeks * Images: Billing Information: * Visit Code: 61112 Office Visit, Est Pt., Level 3. * Procedure Codes: 1036F TOBACCO NON-USER. 3074F SYST BP LT 130 MM HG. 3078F DIAST BP < 80 MM HG. * Electronic signature of Nimo Lora MD on 04/16/2025 at 04:10 PM EST Sign off status: Pending * Provider: Popeye Lora M.D. Date: 0 02/24/2025 Generated for Ceci banks/Nancy/Velmaitting on: 06/16/2024 04:10 PM EST History and Physical Notes * HPI (History of Present Illness) Category Sub-Category Detail Notes Category Not es Psychology Anxiety Pt states she gallegos s been having some anxiety. Pt states at times she feels like she is going to have a panic attack. Pt spoke with her neurologist and was advised to take Lexapro or Celexa Examination Category Sub-Category Detail Notes Category Not es Psychology General Appearance: NAD Grooming : adequate Eye contact : normal Mood : pleasant
--- OUTSIDE RECORDS SUMMARY | 2025-03-17 11:15 | XMS_ITS ---
Author Organization [facility] Address [address] [place] [id number] Care Team Providers Care [facility] Name Role Phone Geno Joey Primary Care Provider [phone] WarrenTammy baez [phone] Allergies Allergen (clinical drug ingredient) Drug/Non Drug Allergy documented on EMR Reaction Allergy Type Onset Date Status methimazole methIMAzole mouth sores Drug Allergy A ctive REASON FOR VISIT Check Up on Meds; Fluid in Ears Medications Medication SIG (Take, Route, Frequency, Duration) Notes Start Date End Date Status Norgestimate-Eth Estradiol 0.25-35 MG-MCG TAKE 1 TABLET BY MOUTH DAILY; Duration: 84 Active Benefiber - as directed orally 2 [...] times a day As needed 01/08/2025 Active Escitalopram Oxalate 10 MG 1 tablet Oral ly Once a day 02/24/2025 Active Fluticasone Propionate 50 MCG/ACT 1 spray(s) in each nostril Two times a day 07/29/2021 Active Folic Acid 1 MGM 1 TAB QD; Duration: 30 DAYS Active Vitamin B12 1000 MCG 1 tablet Orally Onc e a day Active Magnesium 400 MG as directed Orally Active Astepro 205.5 MCG/SPRAY 2 sprays (1 spra y in each nostril) Nasally Twice a day; Duration: 30 day(s) 03/17/2025 Active Vital Signs Weight 201 lbs 03/17/2025 Blood pressure systolic 110 mm Hg 03/17/20 25 Blood pressure diastolic 72 mm Hg 025 Heart Rate 102 /min 03/17/2025 Height 67.25 in 03/17/2025 BMI 31.24 kg/m2 03/17/2025 Encounters Encounter Location Date Provider Diagnosis [facility] [address] [facility] [address] [facility] [address] [place], [place] [id number] 03/17/2025 Joey Lora Dysfunction of Eustachian tube, unspecified laterality H69.90 and Adjustment disorder with mixed anxiety and depressed mood F43.23 Assessments Encounter Date Diagnosis (ICD Code) Assessment Notes Treatment Notes Treatment Clinical Notes Section Notes 03/17/2025 Dysfunction of Eustachian tube, unspecified laterality (ICD-10 - H69.90) 03/17/2025 Adjustment disorder with mixed anxiety and depressed mood (ICD-10 - F43.23) Plan Of Treatment Medication Medication Name Sig Start Date Stop Date Notes Escitalopram Oxalate 10 MG 1 tablet Orally Once a day 02/10 Fluticasone Propionate 50 MCG/ACT 1 spray(s) in each nostril Two times a day 07/29/2021 Astepro 205.5 MCG/SPRAY 2 sprays (1 spra y in each nostril) Nasally Twice a day; Duration: 30 day(s) 03/17/2025 Next Appt Details Follow Up: 3 Months, Reason: Provider Name:Joey Stauffer ry, 06/16/2025 04:15:00 PM, [facility] [address] [facility], [address], [place], [place], [id number], Progress Notes * Sirisha MANDUJANO:2000 ( 24 yo F)Acc No.hhhhhhhhhhhhDOS:03/17/2025 Progress Notes Patient: Chaya WEAVER Account Number:[id number] Provider: Popeye Lora M.D. :2000 A ge:24 Y S ex:Female Date:03/17/2025 Address:[facility] [address], [place], [id number] Subjective: * Chief Complaints: * 1 . Check Up on Meds; Fluid in Ears. * HPI: E NT/respiratory: 24 year old female presents with c/o Ear Drainage P t complains of bilateral ear drainage for 2 days. Pt states she has also has some ear pain. Pt currently taking abx for strep throat . P sychology: c/o Anxiety P t here for checkup. Pt states she is doing well on Escitalopram Succ. 10mg. * 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: S eizures, ADHD-Hyperactive/Impulsive, Cardiac Murmur, Hyperthyroidism - followed by endo. * Surgical History: D nallely Past Surgical History. * Hospitalization/Major Diagno stic Procedure: T egretol Toxicity 08/2008, LT Foot Tendon Tear- Sports Medicine 03/21/2017, [facility] ER - Extreme Fatigue 03/03/2024. [...] nostril Two times a day , Taking Benzonatate 200 MG Capsule 1 [...] per day as needed Orally , Taking Escitalopram Oxalate 10 MG Tablet 1 tablet Orally Once a day , Taking Norgestimate-Eth Estradiol 0.25-35 MG-MCG Tablet TAKE 1 TABLET BY MOUTH DAILY * Allergies: m ethIMAzole: mouth sores - Allergy. Objective: * Vitals: W t: 201, Temp: 98.0, BP: 110/72, HR: 102, Nurse: lola, Ht: 67.25, BMI:31.24. * Examination: E NT/Respiratory: Ears: a uditory canals normal bilaterally, both TM's injected, no effusions. O ral cavity : e rythema without exudate on pharynx. ? P sychology: General Appearance: N AD. G rooming : a dequate.?Eye contact : surekha galindo. M ood : vaishnavi kerns. Assessment: * Assessment: 1. D ysfunction of Eustachian tube, unspecified laterality - H69.90 (Primary) 2 . A djustment disorder with mixed anxiety and depressed mood - F43.23 Plan: * Treatment: 2. A djustment disorder with mixed anxiety and depressed mood Continue Escitalopram Oxalate Tablet, 10 MG, 1 tablet, Orally, Once a day. * Procedure Codes: 1 036F TOBACCO NON-USER, 3074F SYST BP LT 130 MM HG, 3078F DIAST BP < 80 MM HG * Follow Up: 3 Months * Images: Billing Information: * Visit Code: 94879 Office Visit, Est Pt., Level 3. * Procedure Codes: 1036F TOBACCO NON-USER. 3074F SYST BP LT 130 MM HG. 3078F DIAST BP < 80 MM HG. * Electronic signature of Nimo Lora MD on 04/16/2025 at 04:09 PM EST Sign off status: Pending * Provider: Popeye Lora M.D. Date: Generated for Ceci banks/Nancy/Emily on: 06/16/2024 04:09 PM EST History and Physical Notes * HPI (History of Present Illness) Category Sub-Category Detail Notes Category Not es ENT/respiratory Ear Drainage Pt complains of bilateral ear drainage for 2 days. Pt states she has also has some ear pain. Pt currently taking abx for strep throat Psychology Anxiety Pt here for chec kup. Pt states she is doing well on Escitalopram Succ. 10mg Examination Category Sub-Category Detail Notes Category Not es ENT/Respiratory Oral cavity : erythema without exudate on pharynx Ears: auditory canals norm al bilaterally, both TM's injected, no effusions Psychology General Appearance: NAD Grooming : adequate Eye contact : normal Mood : pleasant
--- OUTSIDE RECORDS SUMMARY | 2025-04-02 14:15 | XMS_ITS | Encounter Summary ---
[facility] Address [address] [place] [address] Care Team Providers Care Tire Classifier Name Role Phone Joey Lora MD Primary Care Provider [phone] Reason for Visit * Reason Comments Syncope and collapse Encounter Details Date Type Department Care Team (Late st Contact Info) Description 04/02/2025 3:15 PM EDT Office Visit [facility] [address] [place] [address] Charley Kim S, BANQUET STEWARDESS [address] [place] [address] Syncope and collapse (Primary Dx) Social History Tobacco Use Types Packs/Day Years Used Date Smoking Tobacco: Never Passive Smoke Exposure: Never Smokeless Tobacco: Never Alcohol Use Standard Drinks/Week Comments Never 0 [...] Sign Reading Time Taken Comments Blood Pressure 128/78 04/02/2025 3:19 PM EDT Pulse 70 04/02/2025 3:19 PM EDT Temperature - - Respiratory Rate - - Oxygen Saturation 99% 04/02/2025 3:19 PM EDT Inhaled Oxygen Concentration - - Weight 92.6 kg (204 lb 1.6 oz) 04/02/2025 3:19 P M EDT Height 167.6 cm (5' 6 ) 04/02/2025 3:19 PM EDT Body Mass Index 32.94 04/02/2025 3:19 PM EDT documented in this encounter Progress Notes * Charley Kim, BANQUET STEWARDESS - 04/02/2025 3:15 PM EDT [facility] Cardiology Consultation H&P Chaya Mandujano 2000 [address] [place] [address] Visit date: 04/02/25 PCP: Joey Lora MD [address] [facility] [address] [place] [address] Identification: A 24 y.o. 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 Online courses in education at [employer] the [employer] Problem List: Syncope 11/03 30 day [...] lifestyle CC: Chief Complaint Patient presents with Syncope and collapse Allergies Allergies Allergen Reactions Methimazole Anaphylaxis and [...] mg, Oral, 3 Times Daily Before Meals norgestimate-ethinyl estradiol (ORTHO-CYCLEN) 0.25-35 MG-MCG per tablet 1 tablet, Daily polyethylene glycol (MIRALAX) 17 g, Daily SUMAtriptan (IMITREX) 100 MG tablet 1 tablet as needed, may take second dose at least 2 hours afterfirst dose up to 2 tablets per day as needed Orally *Unknown OCP History of Present Illness HPI Chaya Mandujano is here for follow up today with her mother. She has responded well to midodrine. Denies recurrent syncope. She is wearing compression hose, exercising, and consuming electrolyte replacement as needed. Overall she feels her symptoms have improved. She has echo scheduled on Monday. Objective: Vitals: 04/02/25 1519 BP: 128/78 BP Location: Left arm Patient Position: Sitting Cuff Size: Adult Pulse: 70 SpO2: 99% Weight: 92.6 kg (204 lb 1.6 oz) Height: 167.6 cm (66 ) Body mass index is 32.94 kg/m??. Wt Readings from Last 3 Encounters: 04/02/25 92.6 kg (204 lb 1.6 oz) 02/17/25 93.2 kg (205 lb 8 oz) Physical Examination: Vitals reviewed. Constitutional: Appearance: Healthy appearance. Not in distress. Neck: Vascular: No JVD. Pulmonary: Effort: Pulmonary effort is normal. Breath sounds: Normal breath sounds. Chest: Chest wall: Not tender to palpatation. Cardiovascular: Normal rate. Regular rhythm. Normal S1. Normal S2. Murmurs: There is no murmur. No gallop. No rub. Pulses: Intact distal pulses. Edema: Peripheral edema absent. Skin: General: Skin is warm and dry. Neurological: General: No focal deficit present. Mental Status: Alert. Psychiatric: Behavior: Behavior is cooperative. Diagnostic Data: Echocardiogram, 05/27/2020 Very tiny AP window with an insignificant left to right shunt History of tiny PFO, unable to atrial septum on this study due to artifact Normal LV size, wall thickness, and systolic function No significant valvular abnormalities 30-Day Holter, 10/04/24-11/02/24 () SR-ST, 50-130, avg HR 73, no ectopy Tilt Table Test, 12/19/2024 ([facility]) Positive for vasodepressor and neuro-cardioinhibitory response Baseline HR [...] of consciousness for 30 to 40 seconds. Procedures Labs: 01/10/2025 BMP: GLU 89, BUN 11, CR 0.74, NA 138, K4.3, CO2 27 10/03/2024 CBC: WBC 6.73, HGB 13.3, HCT 39.1, PLTS 285 CMP: GLU 106, BUN 8.0, CR 0.60, NA 139, K 4.2, CO2 23, ALB 4.0, AST 19, ALT 15 07/01/2024 TSH: 1.46 Ma.9 Assessment: Diagnosis Plan 1. Syncope and collapse Avg HR on monitor 73 Tilt table showed drop in HR from 104 to 39 with associated syncope Plan: Check Echocardiogram to rule out structural heart disease. Use of smart watch for episodic monitoring. Continue midodrine 2.5 mg three times daily before meals Will call her results of echo and arrange follow-up in 6 months. Charley Kim APRN 04/02/25 15:40 EDT documented in this encounter Plan of Treatment Upcoming Encounters Date Type Department Care Team (Late st Contact Info) Description 10/06/2025 3:15 PM EDT Office Visit [facility] [address] [place] [id number] Charley Kim APRN [address] [facility] [address] [place] [address] documented as of this encounter Visit Diagnoses Diagnosis Syncope and collapse- Primary documented in this encounter Care Teams Tire Classifier Relationship Specialty Start Date End Date Joey Lora MD [address] [facility] [address] [facility] [address] [place] [address] PCP - General Family Medicine 02/06/25 documented as of this encounter
--- OUTSIDE RECORDS SUMMARY | 2025-04-07 12:47 | XMS_ITS | Encounter Summary ---
[facility] [address] [id number] Care Team Providers Care Transportation Economics Teacher Name Role Phone Joey Lora MD Primary Care Provider [phone] Reason for Referral * Diagnostic Imaging (Routine) - Closed Specialty Diagnoses / Procedures Referred By Contac t Referred To Contact Diagnoses Syncope and collapse Procedures Adult Transthoracic Echo Complete W/ Cont if Necessary Per Protocol NH ECHO TTHRC R-T 2D W/WOM-MODE COMPL SPEC&COLR D NH ECHO TRANSTHORC R-T 2D W/WO M-MODE REC F-UP/LMTD Charley Kim APRN [address] [facility] [address] [place] [address] Phone: tel: fax: Referral ID Status Reason Start Date Expiration Date Visits Re quested Visits Authorized [id number] Closed 02/17/2025 05/19/2026 1 1 Reason for Visit * Diagnostic Imaging (Routine) - Closed Specialty Diagnoses / Procedures Referred By Contac t Referred To Contact Diagnoses Syncope and collapse Procedures Adult Transthoracic Echo Complete W/ Cont if Necessary Per Protocol NH ECHO TTHRC R-T 2D W/WOM-MODE COMPL SPEC&COLR D NH ECHO TRANSTHORC R-T 2D W/WO M-MODE REC F-UP/LMTD Charley Kim APRN [address] [place] [address] [address] [place] [address] Phone: tel: fax: Referral ID Status Reason Start Date Expiration Date Visits Re quested Visits Authorized [id number] Closed 02/17/2025 05/19/2026 1 1 Encounter Details Date Type Department Care Team (Late st Contact Info) Description 04/07/2025 1:47 PM EDT - 04/07/2025 11:59 PM EDT Hospital Encounter [facility] [place] [address] [place] [address] Charley Kim, PILLOW FILLER [address] [place] [address] Syncope and collapse Discharge Disposition: Home or Self Care Social [...] on file documented as of this encounter Medications at Time of Discharge Biotin 5 MG tablet Take 1 tablet by mouth Every Night. Cholecalciferol 50 MCG (2000 UT) capsule Take 1 capsule by mouth Every Evening. Cyanocobalamin (Vitamin B12) 1000 MCG tablet controlled-relea se Take 1 tablet by mouth Daily. ferrous sulfate 325 (65 FE) MG tablet 1 tablet Daily With Breakfast. folic acid (FOLVITE) 1 MG tablet Take 1 tablet by mouth Daily. levETIRAcetam (KEPPRA XR) 750 MG tablet sustained-releas e 24 hour tablet Take 2 tablets by mouth Daily. 10/05/2024 12/28/2025 Magnesium 400 MG capsule Take 400 mg by mouth As Needed. As directed by the provider midodrine (PROAMATINE) 2.5 MG tablet Take 1 tablet by mouth 3 (Three) Times a Day Before Meals. 270 tablet 1 04/02/2025 norgestimate-eth inyl estradiol (ORTHO-CYCLEN) 0.25-35 MG-MCG per tablet Take 1 tablet by mouth Daily. polyethylene glycol (MIRALAX) 17 g packet Take 17 g by mouth Daily. SUMAtriptan (IMITREX) 100 MG tablet 1 tablet as needed, may take second dose at least 2 hours after first dose up to 2 tablets per day as needed Orally 09/23/2024 documented as of this encounter Plan of Treatment Upcoming Encounters Date Type Department Care Team (Late st Contact Info) Description 10/06/2025 3:15 PM EDT Office Visit [facility] [address] [place] [address] Charley Kim, PILLOW FILLER [address] [place] [address] documented as of this encounter Procedures Procedure Name Priority Date/Time Associated Diagnosis Comments ECHO COMPLETE W/ DOPPLER AND COLOR FLOW Routine 04/07/2025 3:10 PM EDT Syncope and collapse documented in this encounter [...] 0.19 sec Ao root diam 2.6 cm CV ECHO SHUNT ASSESSMENT PERFORMED (HIDDEN SCRIPTING) [...] 20 mL of agitated saline was administered. us Charley Kim PILLOW FILLER CV ECHO ORDERABLES Patti l Result documented in this encounter Visit Diagnoses Diagnosis Syncope and collapse documented in this encounter Care Teams Transportation Economics Teacher Relationship Specialty Start Date End Date Joey Lora MD [address] [place] [address] [place] [address] PCP - General Family Medicine 02/06/25 documented as of this encounter
--- OUTSIDE RECORDS SUMMARY | 2025-04-16 16:08 | XMS_ITS | Encounter Summary ---
Author Organization [facility] Address [address] [id number] Care Team Providers Care Director Of Managed Services Name Role Phone Joey Lora MD Primary Care Provider [phone] Encounter Details Date Type Department Care Team (Late st Contact Info) Description 02/08/2016 Orders Only External Location [address] [place] [address] Provider, External Social History Tobacco Use Types [...] Care Team (Late st Contact Info) Description 07/15/2025 10:30 AM EST Office Visit [place] [facility] [address] [place] [address] Marie Steinberg MD [address] [place] [address] documented as of this encounter Procedures Procedure [...] on filedocumented in this encounter Care Teams Director Of Managed Services Relationship Specialty Start Date End Date Joey Lora MD [address] [place] [facility] [address] [id number] PCP - General 10/23/20 documented as of this encounter
--- OUTSIDE RECORDS SUMMARY | 2025-04-16 16:08 | XMS_ITS | Encounter Summary ---
Author Organization Healthcare Address [address] [id number] Care Team Providers Care Automatic Pattern Edger Name Role Phone Joey Lora MD Primary Care Provider [phone] Encounter Details Date Type Department Care Team (Late st Contact Info) Description 05/26/2009 Orders Only External Location [address] [place] [address] Provider, External Social History Tobacco Use Types [...] Visit [place] [facility] [address], [address] [place] [address] Marie Steinberg MD [address] [place] [address] documented as of this encounter Procedures Procedure [...] on filedocumented in this encounter Care Teams Automatic Pattern Edger Relationship Specialty Start Date End Date Joey Lora MD [address] [place] [facility] [address] [place] [address] PCP - General 10/23/20 documented as of this encounter
--- OUTSIDE RECORDS SUMMARY | 2025-04-16 16:08 | XMS_ITS | Encounter Summary ---
Author Organization Healthcare Address [address] [id number] Care Team Providers Care Metal Furrer Name Role Phone Joey Lora MD Primary Care Provider [phone] Encounter Details Date Type Department Care Team (Late st Contact Info) Description 02/08/2006 Orders Only External Location [address] [place] [address] Provider, External Social History Tobacco Use Types [...] Visit [place] [facility] [address] [place] [address] Marie Steinberg MD [address] [place] [address] documented as of this encounter Procedures Procedure [...] on filedocumented in this encounter Care Teams Metal Furrer Relationship Specialty Start Date End Date Joey Lora MD [address] [place] [facility] [address] [place] [id number] PCP - General 10/23/20 documented as of this encounter
--- OUTSIDE RECORDS SUMMARY | 2025-04-16 16:09 | XMS_ITS | Encounter Summary ---
Author Organization [facility] Address [address] [place] [address] Care Team Providers Care Utility Supervisor Boat And Plant Name Role Phone Joey Lora MD Primary Care Provider [phone] Encounter Details Date Type Department Care Team (Late st Contact Info) Description 04/10/2025 Results Follow-Up [facility] [address] [place] [address] Charley Kim S, PLANT ATTENDANT [address] [place] [address] Social History Tobacco Use Types Packs/Day Years [...] Description 10/06/2025 3:15 PM EDT Office Visit [facility] [address] [facility] [address] [place] [address] Charley Kim S, PLANT ATTENDANT [address] [place], [place] [id number] documented as of this encounter Visit Diagnoses Not on filedocumented in this encounter Care Teams Utility Supervisor Boat And Plant Relationship Specialty Start Date End Date Joey Lora MD [address] [facility] [address] [facility] [address] [place] [address] PCP - General Family Medicine 02/06/25 documented as of this encounter
--- OUTSIDE RECORDS SUMMARY | 2025-04-16 16:09 | XMS_ITS | Clinical Summary ---
Author Organization [facility] Address [address] [place] [address] Care Team Providers Care Mucker Operator Name Role Phone Joey Lora MD Primary Care Provider [phone] Allergies No known active allergies Medications folic [...] Depression Screening 06/12/2024 Influenza Vaccine (#1) 2025 0, 04/05/2019, 04/04/2018, Additional history exists HPV Vaccine [...] patient's age to complete this topic Insurance [employer] Care Teams Mucker Operator Relationship Specialty Start Date End Date Joey Lora MD [address] [place] [address] PCP - General 05/26/09
--- OUTSIDE RECORDS SUMMARY | 2025-04-16 16:09 | XMS_ITS | Encounter Summary ---
[facility] [address] [place] [address] Care Team Providers Care Assembler Unit Name Role Phone Joey Lora MD Primary Care Provider [phone] Encounter Details Date Type Department Care Team (Latest Contact Info) Description 04/02/2025 Travel Social History Tobacco Use Types Packs/Day [...] Description 10/06/2025 3:15 PM EDT Office Visit [facility] [address] [facility] [address] [place] [address] Charley Kim S, INSTRUMENT AND ELECTRICAL TECHNICIAN [address] [place] [address] documented as of this encounter Visit Diagnoses Not on filedocumented in this encounter Care Teams Assembler Unit Relationship Specialty Start Date End Date Joey Lora MD 1210 [facility] [address] [facility] [address] [place] [address] PCP - General Family Medicine 02/06/25 documented as of this encounter
--- OUTSIDE RECORDS SUMMARY | 2025-04-16 16:09 | XMS_ITS | Encounter Summary ---
[facility] Address [address] [place] [address] Care Team Providers Care Leaf Stamper Name Role Phone Joey Lora MD Primary Care Provider [phone] Encounter Details Date Type Department Care Team (Latest Contact Info) Description 04/07/2025 Travel Social History Tobacco Use Types Packs/Day [...] Description 10/06/2025 3:15 PM EDT Office Visit [facility] [address] [facility] [address] [place] [address] Charley Kim S, DIRECTOR OF CORPORATE STRATEGY [address] [place] [address] documented as of this encounter Visit Diagnoses Not on filedocumented in this encounter Care Teams Leaf Stamper Relationship Specialty Start Date End Date Joey Lora MD [address] [facility] [address] [facility] [address] [place] [address] PCP - General Family Medicine 02/06/25 documented as of this encounter
--- OUTSIDE RECORDS SUMMARY | 2025-04-16 16:09 | XMS_ITS | Encounter Summary ---
Author Organization Healthcare Address [address] [place] [address] Care Team Providers Care Materials Intern Name Role Phone Joey Lora MD Primary Care Provider [phone] Encounter Details Date Type Department Care Team (Late Contact Info) Description 08/18/2022 Orders Only External Location [address] [place] [address] Provider, External Social History Tobacco Use Types [...] Visit [place] [facility] [address], [address] [place] [address] Marie Steinberg MD [address] [place] [address] documented as of this encounter Procedures Procedure [...] on filedocumented in this encounter Care Teams Materials Intern Relationship Specialty Start Date End Date Joey Lora MD [address] [place] [facility] [address] [id number] PCP - General 10/23/20 documented as of this encounter
--- OUTSIDE RECORDS SUMMARY | 2025-04-16 16:09 | XMS_ITS | Clinical Summary ---
[facility] [address] [place] [address] Care Team Providers Care Private Equity Associate Name Role Phone Joey Lora MD Primary Care Provider [phone] Allergies Active Allergy Reactions Criticality Noted Date Comments Methimazole Anaphylaxis,Other (S ee Comments) High 07/01/2024 Mouth sores Oral lesions Medications Magnesium 400 MG capsule Take 400 mg by mouth As Needed. As directed by the provider Active Biotin 5 MG tablet Take 1 tablet by mouth Every Night. Active Cholecalciferol 50 MCG (2000 UT) capsule Take 1 capsule by mouth Every Evening. Active Cyanocobalamin (Vitamin B12) 1000 MCG tablet controlled-rele ase Take 1 tablet by mouth Daily. Active ferrous sulfate 325 (65 FE) MG tablet 1 tablet Daily With Breakfast. Active folic acid (FOLVITE) 1 MG tablet Take 1 tablet by mouth Daily. Active levETIRAcetam (KEPPRA XR) 750 MG tablet sustained-relea se 24 hour tablet Take 2 tablets by mouth Daily. 5 12/29/19 26 Active polyethylene glycol (MIRALAX) 17 g packet Take 17 g by mouth Daily. Active SUMAtriptan (IMITREX) 100 MG tablet 1 tablet as needed, may take second dose at least 2 hours after first dose up to 2 tablets per day as needed Orally Active norgestimate-et hinyl estradiol (ORTHO-CYCLEN) 0.25-35 MG-MCG per tablet Take 1 tablet by mouth Daily. Active midodrine (PROAMATINE) 2.5 MG tablet Take 1 tablet by mouth 3 (Three) Times a Day Before Meals. 270 tablet 1 Active midodrine (PROAMATINE) 2.5 MG tablet Take 1 tablet by mouth 3 (Three) Times a Day Before Meals. 90 tablet 1 5 04/02/20 25 Discontinu ed(Reorder ) Active Problems Problem Noted Date Diagnosed Date PFO (patent foramen ovale) 02/17/2025 Tachycardia 02/17/2025 Syncope and collapse 02/17/2025 Encounters Date Type Department Care Team Description 04/10/2025 Results Follow-Up [facility] CARDIOLOGY [address] [facility] [address] [place] [address] Charley Kim APRN 04/07/2025 1:47 PM EDT - 04/07/2025 11:59 PM EDT Hospital Encounter [facility] [place] [address] [facility] [address] [place] [address] Charley Kim APRN Syncope and collapse Discharge Disposition: Home or Self Care 04/07/2025 Travel 04/02/2025 3:15 PM EDT Office Visit [facility] [address] [facility] [address] [place] [address] Charley Kim APRN Syncope and collapse (Primary Dx) 04/02/2025 Travel 02/17/2025 3:00 PM EDT Office Visit [facility] CARDIOLOG[facility] [address] [facility] [address] [place] [address] Charley Kim APRN Syncope and collapse (Primary Dx); Tachycardia; PFO (patent foramen ovale) 02/17/2025 Travel 02/11/2025 Telephone [facility] C[facility] [address] [place] [address] Charley Kim APRN [place] - RECORDS from Last 3 Months Family History 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 Relation Name Comments THYROID Father HTN Mother SINUS TACHYCARDIA Paternal Grandmother Relation Name Status Comments Father Mother Paternal Grandmother Social History Tobacco Use Types Packs/Day Years [...] Mass Index 32.94 04/02/2025 3:19 PM EDT Plan of Treatment Upcoming Encounters Date Type Department Care Team (Late st Contact Info) Description 10/06/2025 3:15 PM EDT Office Visit [facility] CARDIOLOG[facility] [address] [facility] [address] [place] [address] Charley Kim Baron, METAL FURNITURE POLISHER [address] [place] [address] Health Maintenance Due Date Last Done Comments Annual Gynecologic Pelvic and Breast Exam 2002 MENINGOCOCCAL B VACCINE (1 of 2 - Standard) 2018 PAP SMEAR 2023 TDAP/TD VACCINES (2 - Td or Tdap) 05/13/2023 05/13/2013 ANNUAL PHYSICAL 02/11/2025 HPV VACCINES Completed 01/08/2018, 09/10, 07/04/2017, Additional history exists MENINGOCOCCAL VACCINE Completed 07/25/2018, 013 HEPATITIS C SCREENING Completed 02/14/2025 INFLUENZA VACCINE Completed 02/24/2025, , 03/27/2023, Additional history exists Pneumococcal Vaccine 0-49 Aged Out No longer eligible based on patient's age to complete this topic Procedures Procedure Name Priority Date/Time Associated Diagnosis Comments ECHO COMPLETE W/ DOPPLER AND COLOR FLOW Routine 04/07/2025 3:10 PM EDT Syncope and collapse ECG 12-LEAD Routine 02/17/2025 Syncope and collapse from Last 3 Months Results * ECHO COMPLETE W/ DOPPLER AND [...] Kim APRN - 02/17/2025 3:00 PM EDT [facility] Cardiology Consultation H&P Chaya Mandujano 2000 [address] [place] [address] Visit date: 02/17/25 PCP: Joey Lora MD [address] [place] [address] [place] [address] Identification: A 24 y.o. female, full-time student and works full-time [employer]. Online courses in education at [employer] Problem List: Syncope 11/03 30 day Holter: SR-ST, no ectopy 01/03 TTT: Positive tilt table study for both vasodepressive andcardioinhibitory response ASD Dx as infant, annual echos [...] [facility]. She states last February she began havingissues with dizziness and palpitations. In May while at [employer] having palpitations associated with near syncope [...] claudication. Pt denies history of CHF,DVT, PE, MD, CVA, TIA, or rheumatic fever. ROS Review [...] 73, no ectopy Tilt Table Test, 12/19/2024 ([facility]) positive for vasodepressor and neuro-cardioinhibitory response Baseline [...] contact office with anyquestions or concerns. Charley Kim, ERICA 02/17/25 16:50 EDT Charley Kim METAL FURNITURE POLISHER ECG ORDERABLES Final R esult from Last 3 Months Insurance [facility] BLUE CROSS BLUE SHIELD PPO Care Teams Private Equity Associate Relationship Specialty Start Date End Date Joey Lora MD [address] [place] [address] [place] [address] PCP - General Family Medicine 02/06/25
--- OUTSIDE RECORDS SUMMARY | 2025-04-16 16:09 | XMS_ITS | Continuity of Care Document ---
Author Organization [place] [facility] [place] [facility] New Address [address] [place] [address] Assessment Encounter Date Assessment Date Assessment LastModified by Organization Details LastModified Time 03/06/2025 03/06/2025 This patient had a caudal epidural steroid injection under fluoroscopy today. She has increasing pain over her tailbone. She does have previous history of trauma where she may have fractured her tailbone in the remote past. Will follow-up with her in our [place] office. Patient did self-pay for this injection. Will see her back in approximate 1 month. abux Not available 03/06/2025 22:04:42 Plan of Treatment Reminders Order Date Submit Date Provider Last Modified By Organization Details Last Modified Time Details Appointments None record ed. Lab None record ed. Referral None record ed. Procedures None record ed. Surgeries None record ed. Imaging None record ed. Medication Orders None record ed. Patient TargetsNo targets recorded. Patient Instructions Encounter Date Encounter Id Patient Instructions Last Modified By Organization Details Last Modified Time 03/06/2025 [id number] back pain: care instructions abux Not available 03/06/2025 22:05:27 learning about relief for back pain abux Not available 03/06/2025 22:05:27 Reason for Referral None Reported. Problems Name Problem SNOMED Code Status Onset Date Resolution Date Notes Provider Name and Address Organization Details Recorded Time Injury of coccyx 069019172 Active 2024 Jacob Romero MD [address] [address], [place], [address], [place] [facility] 22:05:22 Pain in coccyx 19276684 Active 2024 Jacob Romero MD [address], [address], [place] [facility] 22:05:23 Degeneration of lumbar intervertebral disc 85676910 Active 2024 Jacob Romero MD [address], [address], [place] [facility] 22:05:25 Lumbar radiculopathy 336215282 Active 2024 Jacob Romero MD [address], [address], [place] [facility] 22:05:26 Problem Notes None recorded. Procedures Surgical History Date Name Laterality Status Provider Name and Address Organization Details Recorded Time Caudal Epidural Steroid Injection Under Fluoroscopy completed Jacob Romero MD [address], [address], [place] [facility] 03/06/2025 22:04:05 Imaging Results None recorded. Procedure Notes None recorded. Medical Equipment None Reported. Allergies Allergen ID Allergen Name Allergen Category Reaction Reaction Severity Criticality Documentation Date Start Date Code Code System Note Provider Name and Address Organization Details Recorded Time 7981 methimazo le medicatio n Not available Not available Not available 02/28/2025 6835 RxNorm CARLOS ARGUETA null, [place] - [facility] 11:05:37 Medications Name Sig Start Date Stop Date Status Note LastModified by Organization Details LastModified Time celecoxib 200 mg capsule TAKE ONE CAPSULE BY MOUTH EVERY DAY --TAKE WITH FOOD-- active Not Available Not Available No t Available azithromyci n 250 mg tablet TAKE 2 TABLETS BY MOUTH ON DAY 1, THEN TAKE 1 TABLET DAILY ON DAYS 2-5 03/03 completed Not Available Not Available Not Available benzonatate 200 mg capsule TAKE ONE CAPSULE BY MOUTH THREE TIMES DAILY NEEDED -SWALLOW WHOLE. DO NOT CRUSH OR CHEW- active Not Available Not Available No t Available sumatriptan 100 mg tablet TAKE 1 TABLET BY MOUTH AT ONSET OF MIGRAINE. MAY REPEAT ONCE AFTER 2 HOURS IF NEEDED (max of 2 tabs PER 24 hours) active Not Available Not Available No t Available meclizine 25 mg tablet TAKE ONE TABLET BY MOUTH THREE TIMES DAILY active Not Available Not Available No t Available cephalexin 500 mg capsule TAKE ONE CAPSULE BY MOUTH TWICE DAILY FOR 10 DAYS -- FINISH ALL MEDICINE -- 02/28 completed Not Available Not Available Not Available midodrine 2.5 mg tablet TAKE 1 TABLET BY MOUTH 3 TIMES A DAY BEFORE MEALS active Not Available Not Available No t Available metoprolol succinate ER 25 mg tablet,exte nded release 24 hr TAKE 1/2 TABLET BY MOUTH EVERY DAY active Not Available Not Available No t Available bromphenira mine-pseudo ephedrine-D M 2 mg-30 mg-10 mg/5 mL oral syrup TAKE 5-10 ML BY MOUTH FOUR TIMES DAILY NEEDED active Not Available Not Available No t Available cefdinir 300 mg capsule TAKE ONE CAPSULE BY MOUTH TWICE DAILY FOR 7 DAYS -- FINISH ALL MEDICINE -- 03/03 completed Not Available Not Available Not Available fluticasone propionate 50 mcg/actuati on nasal spray,suspe nsion instill 1 SPRAY IN EACH NOSTRIL TWICE DAILY active Not Available Not Available No t Available escitalopra m 10 mg tablet TAKE ONE TABLET BY MOUTH EVERY DAY active Not Available Not Available No t Available Vitals Date Recorded Pain severity - 0-10 verbal numeric rating [Score] - Reported Provider Name and Address Organization Details Last Updated DateTime 03/06/2025 7 CARLOS GREER - [facility] 03/06/2025 15:40:12 Date Recorded Body height Heart rate Respiratory rate Body mass index (BMI) Body weight Oxygen saturation Oxygen saturation in Arterial blood by Pulse oximetry Systolic And Diastolic Provider Name and Address Organization Details Last Updated DateTime 5 165.1 cm 88 /min 18 /min 34.1 kg/m2 92871.4 4 g 98 % 98 % 128/84 mm[Hg] Petra GREER - [facility] 15:04:50 Social History Question Answer Notes LastModified by Organizat ion Details LastModified Time Tobacco Smoking Status Never Smoker CARLOS ARGUETA [place] - [facility] 02/28/2025 11:11:06 In The 14 Days Before Symptom Onset, Have You Had Close Contact With A Laboratory-confirm ed COVID-19 While That Case Was Ill? No [email or web address] Information n ot available 02/28/2025 In The 14 Days Before Symptom Onset, Have You Had Close Contact With A Person Who Is Under Investigation For COVID-19 While That Person Was Ill? No Information not available 02/28/2025 Have You Been To An Area Known To Be High Risk For COVID-19? No [email or web address] Information not available 02/28/2025 Sex: Unknown Functional Status Question Answer Note LastModified by Organizat ion Details LastModified Time Do you use any illicit or recreational drugs? No [email or web address] Information not available 02/28/2025 Do you or have you ever used any other forms of tobacco or nicotine? No [email or web address] Information not available 02/28/2025 What is your level of alcohol consumption? None [email or web address] Information not available 02/28/2025 Mental Status None recorded. Family History Nothing Reported. 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 Condition Response Coronary Artery Disease N Gout N Hernia N Head Trauma/Injury N Depression N COPD N Anxiety Disorder N Arthritis N Acid Reflux (GERD) N Cancer N Stroke N Back Injury N High Cholesterol N Liver Disease N Headaches N Fibromyalgia N Kidney Disease N Thyroid Problems N Anemia N Ulcers N Heart Attack ([place]) N Diabetes N Bleeding Disorder N Tuberculosis N AIDS/HIV N Asthma N Substance Abuse N Hepatitis N Heart Disease N Hypertension N Osteoporosis N Gynecological HistoryNo gynecological history recorded. Obstetrics History GPAL:G 0 P 0 0 0 0 Past Encounters Encounter ID Performer Location Encounter Start Date Encounter Closed Date Diagnosis/Indication Diagnosis SNOMED-CT Code Diagnosis ICD10 Code Diagnosis IMO Codes Diagnosis Note [id number] Jacob Romero MD [address] [place] [address] 03/06/2025 14:26:44 03/06/2025 16:23:58 Injury of coccyx 521915956 S39.92XA 3261723 Pain in coccyx 94073166 M53.3 91348 Degenerati on of lumbar intervertebral disc 03235989 M51.362 5936370621 Lumbar radiculopathy 128 505380 M54.16 66727 Health Concerns Section Related Observation LastModified by Organization Detai ls LastModified Time None Recorded Concern Status LastModified by Organization Details LastModified Time None Recorded Payers Encounter Date Sequence Insurance Name Policy Number Policy Henry Covered Member ID Henry Member ID Guarantor Name 03/06/2025 2 [employer] [id number] Marii Mandujano [id number] Chaya Mandujano 03/06/2025 1 [place] [id number] W Caryn Bhagat [id number] Chaya Mandujano Notes Date Note Type Note Provider Name and Address Organization Details Recorded Time 5 text/html Back PainReported by PatientHPIFor location, patient reportspain radiating to the buttocksbut reportssacral. For quality, patient reportssharp,tingling,st iffness,aching,burning,t hrobbing, andconstant. For severity, patient reportspain level 7/10andmoderate (5-7). For associated symptoms, patient reportsweak limbsandtinglingbut reportsno fever,no numbness of the legs/feet,no incontinence,no shortness of breath,no unintentional weight loss,no chills,no night sweats,no gait instability,no bowel/bladder symptoms, andno recent increase in stress. For duration, patient reportschronic. For onset/timing, patient reportsrecurrent episode. For context, patient reportsatraumaticandover use. For alleviating factors, patient reportsrelieved by changing position. For aggravating factors, patient reportsmovement/position ing,twisting,flexing back,extending back,lifting,housework,w alking, andstanding. For previous injury, patient reportsno prior injury to back. Jacob Romero MD [address], [address], [facility] 03/06/2025 22:06:09 OBGyn Episode No OBEpisode recorded.
--- OUTSIDE RECORDS SUMMARY | 2025-04-16 16:09 | XMS_ITS | Clinical Summary ---
Author Organization [facility] Address [address] [place] [address] Care Team Providers Care Inspector Penetrant Name Role Phone Joey Lora MD Primary Care Provider [phone] Allergies Active Allergy Reactions Criticality Noted Date Comments Methimazole Other - please docum ent in the comment field Medium 10/03/2024 Oral lesions Medications folic acid (Folvite) 400 MCG tablet Take 1 tablet by mouth nightly. 0 Active MAGNESIUM GLUCONATE PO Take 200 mg by mouth every evening. Active cholecalciferol (Vitamin D-3) 50 MCG (2000 UT) capsule Take 1 capsule by mouth every evening. Active ferrous sulfate 325 (65 Fe) MG tablet Take 1 tablet by mouth 1 (one) time each day with dinner. Active Biotin 5 MG tablet Take 1 tablet by mouth nightly. Active NORGESTIMATE-ET H ESTRADIOL PO Take 1 tablet by mouth [...] not crush, chew, or split. 60 tablet Active levETIRAcetam XR (Keppra XR) 750 mg 24 hr tabletIndicatio ns:Nonintractab le focal epilepsy (CMS/HCC) Take 2 tablets by mouth daily. Do not crush, chew, or split. 180 tablet 3 5 12/29/19 26 Active Additional Information Patient not taking.Reported on 01/10/2025 benzonatate (Tessalon) 200 MG capsule 1 capsule every 8 hours. 5 Active Active Problems Problem Noted Date Diagnosed Date Seizure 10/03/2024 Encounters Date Type Department Care Team Description 02/14/2025 1:48 PM EDT - 02/14/2025 5:24 PM EDT Emergency [facility] [address] [place] [address] Chantel Cortes, Congenital brain anomaly (CMS/HCC) (Primary Dx) Discharge Disposition: Home or Self Care 02/14/2025 Travel 02/11/2025 [facility]phone [facility] [address] [place] [address] Marie Steinberg MD 01/27/2025 Telephone [facility] [place] [facility] [address] [place] [address] [facility] Clinical Concern/Question 01/14/2025 Results Follow-Up [facility] [address] [place] [id number] Tapan Ybarra MD from Last 3 Months Family History [...] Sign Reading Time Taken Comments Blood Pressure 131/86 02/14/2025 4:47 PM EDT Pulse 77 02/14/2025 4:47 PM EDT Temperature 36.9 C (98.4 F) 02/14/2025 4:47 PM EDT Respiratory Rate 15 02/14/2025 4:48 PM EDT Oxygen Saturation 100% 02/14/2025 4:47 PM EDT Inhaled Oxygen Concentration - - Weight 93 kg (205 lb) 02/14/2025 12:33 PM EDT Height 167.6 cm (5' 6 ) 02/14/2025 12:33 PM EDT Body Mass Index 33.09 02/14/2025 12:33 PM EDT Plan of Treatment Upcoming Encounters Date Type Department Care Team (Late st Contact Info) Description 07/15/2025 10:30 AM EST Office Visit [place] [facility] [address] [place] [address] Marie Steinberg MD [address] [place] [address] Health Maintenance Due Date Last Done Comments [facility]-/Child/Adol SDOH Screenings 2002 [facility]-Varicella Vaccines (2 of 2 - 2-dose childhood series) 08/05/2013 05/13/2013 [facility]- SDOH Screenings 2020 [facility]-Adult SDOH Screenings 2020 [facility]-Hepatitis B Vaccines (1 of 3 - 19+ 3-dose series) 2021 [facility]-Pap Smear 2023 [facility]-DTaP,Tdap,and Td Vaccines (2 - Td or Tdap) 05/13/2023 05/13/2013 [id number] Vaccine (4 - season) 2025 06/26/2021, 10/10/2020, 09/19/2020 [facility]-Influenza Vaccine (#1) 02/10/202504/02, 04/01/2020, 04/05/2019, Additional history exists [facility]-Depression Screening 03/18/2025 03/18/2024 [facility]-Zoster Vaccines (1 of 2) 2052 05/13/2013 HPV Vaccines Completed 01/08/2018, 09/10, 07/04/2017, Additional history exists [facility]-Hepatitis A Vaccines Completed 01/08/2018, 06/13 [facility]-Obesity Intervention Completed 025, 01/02/2025, 10/02/2024, Additional history exists [facility]-HIV Screening Completed 02/14/2025 [facility]-Hepatitis C Screening Completed 02/14/2025 [facility]-HIB Vaccines Aged Out No longer e [...] Procedure Name Priority Date/Time Associated Diagnosis Comments CT VENOGRAM HEAD STAT 02/14/2025 2:46 PM EDT ED HIV 1/2 ANTIBODY/ANTIGEN SCREEN WITH REFLEX TO HIV I/II DIFFERENTIATION STAT 02/14/2025 1:47 PM EDT ED PROTOCOL HIV 1/2 ANTIBODY/ANTIGEN SCREEN W/REFLEX TO HIV 1/2 ANTIBODY DIFFERENTIATION STAT 02/14/2025 1:47 PM EDT HEPATITIS C ANTIBODY - ED W/REFLEX TO HCV QUANT PCR STAT 02/14/2025 1:47 PM EDT CBC WITH AUTO DIFFERENTIAL STAT 02/14/2025 1:47 PM EDT BASIC METABOLIC PANEL, PLASMA STAT 02/14/2025 1:47 PM EDT TEST QUALITATIVE PLASMA STAT 02/14/2025 1:47 PM EDT from Last 3 Months Results * CT Venogram Head (02/14/2025 2:46 PM EDT) Anatomical Region Laterality Modality Head Computed Tomogra phy Impressions 02/14/2025 4:38 PM EDT 1. No evidence of dural venous sinus or cortical vein thrombosis. 2. 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 However, superimposed transverse sinus stenosis at this level is difficult to exclude. Further evaluation with MRV can be considered if clinically indicated. CRITICAL RESULT: No. COMMUNICATION: Per this written report. Preliminary report signed by Quinn Wetzel MD on 02/14/2025 3:59 PM By electronically signing this report, I, the attending physician, attest that I have personally reviewed the images/data for the above examination(s) and agree with the final edited report. Drafted by Quinn Wetzel MD on 02/14/2025 3:53 PM Final report signed by René Telles MD on 02/14/2025 4:38 PM Narrative 02/14/2025 4:38 PM EDT CLINICAL INDICATION: Headache, intracranial hypertension features TECHNIQUE: Spiral axial CT images of the head were obtained with IV contrast administration during the venous phase. MIP images were created. A total of 100 mL of Omnipaque 350 were administered intravenously. Total DLP (Dose-Length Product): 291 mGy*cm. Please note: The reported value represents the total of one or more individual components during the CT acquisition on this date and at this time, and as such, the same value may appear in more than one CT report depending on the interpreting/reporting physicians. COMPARISON: 08/18/2022 outside imaging MR FINDINGS: Diagnostic Quality: Limited due to motion artifact. There is normal enhancement of the superior sagittal, transverse and sigmoid sinuses with no filling defects to suggest thrombosis. There is a markedly narrow caliber of the right transverse sinus which is grossly stable compared to prior MRIs. The straight sinus, Vein of Porter and deep venous system are grossly normal. No cortical vein thrombosis is present. Other findings: None. Procedure Note René Telles MD - 02/14/2025 CLINICAL INDICATION: Headache, intracranial hypertension features TECHNIQUE: Spiral axial CT images of the head were obtained with IV contrastadministration during the venous phase. MIP images were created. A totalof 100 mL of Omnipaque 350 were administered intravenously. Total DLP (Dose-Length Product): 291 mGy*cm. Please note: The reportedvalue represents the total of one or more individual components during theCT acquisition on this date and at this time, and as such, the same valuemay appear in more than one CT report depending on theinterpreting/reporting physicians. COMPARISON: 08/18/2022 outside imaging MR FINDINGS: Diagnostic Quality: Limited due to motion artifact. There is normal enhancement of the superior sagittal, transverse andsigmoid sinuses with no filling defects to suggest thrombosis. There is amarkedly narrow caliber of the right transverse sinus which is grosslystable compared to prior MRIs. The straight sinus, Vein of Porter and deepvenous system are grossly normal. No cortical vein thrombosis is present. Other findings: None. IMPRESSION: 1. No evidence of dural venous sinus or cortical vein thrombosis. 2. 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 However,superimposed transverse sinus stenosis at this level is difficult toexclude. Further evaluation with MRV can be considered if clinicallyindicated. CRITICAL RESULT: No. COMMUNICATION: Per this written report. Preliminary report signed by Quinn Wetzel MD on 02/14/2025 3:59 PM By electronically signing this report, I, the attending physician, attestthat I have personally reviewed the images/data for the aboveexamination(s) and agree with the final edited report. Drafted by Quinn Wetzel MD on 02/14/2025 3:53 PM Final report signed by René Telles MD on 02/14/2025 4:38 PM us Joey Tiwari MD IM CT PROCEDURES Final Result * ED HIV 1/2 Antibody/Antigen Screen w/Reflex to HIV 1/2 Differentiation (02/14/2025 1:47 PM EDT) HIV 1 & 2 Antibody/Antigen Screen Non Reactive Non Reactive 02/14/2025 3:09 PM EDT [facility] Comment:Screening for HIV 1 & 2 antibodies, and P24 antigen is NONREACTIVE. No confirmatory testing is required. Blood Venous blood specimen / Unknown Venipuncture / Unknown 02/14/2025 1:47 PM EDT 02/14/2025 1:51 PM EDT us Joey Tiwari MD LAB BLOOD ORDERABLES Final Res ult Performing Organization Address City/[facility]/ZIP Co de Phone Number [facility] [address] [place] [address] * Hepatitis C Antibody - ED (02/14/2025 1:47 PM EDT) Pathologist [facility] Hepatitis C Antibody Negative Negative 02/14/2025 3:20 PM EDT [facility] Blood Venous blood specimen / Unknown Venipuncture / Unknown 02/14/2025 1:47 PM EDT 02/14/2025 1:51 PM EDT us Joey Tiwari MD LAB BLOOD ORDERABLES Final Res ult Performing Organization Address [facility]/ZIP Co de Phone Number [facility] [address] [place] [address] * (ABNORMAL) CBC w/diff (02/14/2025 1:47 PM EDT) [facility] WBC Count 8.99 3.70 - 10.30 10*3/uL LAB HEMATOLOGY METHOD 02/14/2025 1:54 PM EDT [facility] RBC Count 3.83(L) 3.90 - 5.20 10*6/uL LAB HEMATOLOGY METHOD 02/14/2025 1:54 PM EDT [facility] HGB 12.5 11.2 - 15.7 g/dL LAB HEMATOLOGY METHOD 02/14/2025 1:54 PM EDT [facility] HCT 36.2 34.0 - 45.0 % LAB HEMATOLOGY METHOD 02/14/2025 1:54 PM EDT [facility] Platelet Count 250 155 - 369 10*3/uL LAB HEMATOLOGY METHOD 02/14/2025 1:54 PM EDT [facility] MCV 95 79 - 98 fL LAB HEMATOLOGY METHOD 02/14/2025 1:54 PM EDT [facility] MCH 32.6(H) 26.0 - 32.0 pg LAB HEMATOLOGY METHOD 02/14/2025 1:54 PM EDT [facility] MCHC 34.5 30.7 - 35.5 g/dL LAB HEMATOLOGY METHOD 02/14/2025 1:54 PM EDT [facility] RDW 11.8 11.5 - 14.5 % LAB HEMATOLOGY METHOD 02/14/2025 1:54 PM EDT [facility] MPV 9.3 8.8 - 12.5 fL LAB HEMATOLOGY METHOD 02/14/2025 1:54 PM EDT [facility] nRBC 0.0 <=0.0 per 100 WBCs LAB HEMATOLOGY METHOD 02/14/2025 1:54 PM EDT [facility] Differential Type Automated LAB HEMATOLOGY METHOD 02/14/2025 1:54 PM EDT [facility] Neutrophils % 67 % LAB HEMATOLOGY METHOD 02/14/2025 1:54 PM EDT [facility] Lymphocytes % 27 % LAB HEMATOLOGY METHOD 02/14/2025 1:54 PM EDT [facility] Monocytes % 5 % LAB HEMATOLOGY METHOD 02/14/2025 1:54 PM EDT [facility] Eosinophils % 1 % LAB HEMATOLOGY METHOD 02/14/2025 1:54 PM EDT [facility] Basophils % 0 % LAB HEMATOLOGY METHOD 02/14/2025 1:54 PM EDT [facility] Immature Granulocytes % 0 % LAB HEMATOLOGY METHOD 02/14/2025 1:54 PM EDT [facility] Neutrophils Absolute 6.01 1.60 - 6.10 10*3/uL LAB HEMATOLOGY METHOD 02/14/2025 1:54 PM EDT [facility] Lymphocytes Absolute 2.43 1.20 - 3.90 10*3/uL LAB HEMATOLOGY METHOD 02/14/2025 1:54 PM EDT [facility] Monocytes Absolute 0.46 0.30 - 0.90 10*3/uL LAB HEMATOLOGY METHOD 02/14/2025 1:54 PM EDT [facility] Eosinophils Absolute 0.05 0.00 - 0.50 10*3/uL LAB HEMATOLOGY METHOD 02/14/2025 1:54 PM EDT [facility] Basophils Absolute 0.02 0.00 - 0.10 10*3/uL LAB HEMATOLOGY METHOD 02/14/2025 1:54 PM EDT [facility] Immature Granulocytes Absolute 0.02 0.00 - 0.06 10*3/uL LAB HEMATOLOGY METHOD 02/14/2025 1:54 PM EDT [facility] Blood Venous blood specimen / Unknown Venipuncture / Unknown 02/14/2025 1:47 PM EDT 02/14/2025 1:51 PM EDT Narrative [facility] - 02/14/2025 1:54 PM EDT Therapeutic decision making should be based on absolute values, rather than percentages. Joey Tiwari MD LAB BLOOD ORDERABLES Final Res ult [facility] [address] [place] [address] * hCG, serum, qualitative (02/14/2025 1:47 PM EDT) Test Negative Negative 02/14/2025 2:14 PM EDT [facility] Blood Venous blood specimen / Unknown Venipuncture / Unknown 02/14/2025 1:47 PM EDT 02/14/2025 1:51 PM EDT Narrative [facility] - 02/14/2025 2:14 PM EDT Reference Range: Males and non- females: Negative. Joey Tiwari MD LAB BLOOD ORDERABLES Final Res ult Performing Organization Address City/[facility]/ZIP Co de Phone Number [facility] [address] [place] [address] * (ABNORMAL) BMP (02/14/2025 1:47 PM EDT) Glucose, Plasma 89 74 - 99 mg/dL 02/14/2025 2:14 PM EDT [facility] BUN, Plasma 13 7 - 21 mg/dL 02/14/2025 2:14 PM EDT [facility] Creatinine, Plasma 0.66 0.60 - 1.10 mg/dL 02/14/2025 2:14 PM EDT [facility] BUN/Creatinine Ratio 20 02/14/2025 2:14 PM EDT [facility] Sodium, Plasma 134(L) 136 - 145 mmol/L 02/14/2025 2:14 PM EDT [facility] Potassium, Plasma 3.7 3.6 - 4.9 mmol/L 02/14/2025 2:14 PM EDT [facility] Chloride, Plasma 101 97 - 107 mmol/L 02/14/2025 2:14 PM EDT [facility] CO2, Plasma 22 22 - 29 mmol/L 02/14/2025 2:14 PM EDT [facility] Anion Gap 11 6 - 16 mmol/L 02/14/2025 2:14 PM EDT [facility] Total Calcium, Plasma 9.5 8.9 - 10.2 mg/dL 02/14/2025 2:14 PM EDT [facility] eGFRcr 127.4 mL/min/1.7 3m*2 02/14/2025 2:14 PM EDT [facility] Comment:Reported eGFRcr in m L/min/1.73m2 is based the CKD-EPI 2020 equation that does not use a race coefficient. Blood Venous blood specimen / Unknown Venipuncture / Unknown 02/14/2025 1:47 PM EDT 02/14/2025 1:51 PM EDT us Joey Tiwari MD LAB BLOOD ORDERABLES Final Res ult [facility] [address] [place] [address] from Last 3 Months Insurance [facility] [place] [id number] ANTH ANTHEM Advance Directives * Full Code (Latest Code Status on File) Date Activated Date Inactivated Comments 10/03/2024 9:11 AM 10/05/2024 12:53 PM Question Answer Comments I have reviewed the capacity from the link above and, if needed, have updated to appropriate status: Yes Care Teams Inspector Penetrant Relationship Specialty Start Date End Date Joey Lora MD [address] [place] [address] PCP - General 10/23/20
--- OUTSIDE RECORDS SUMMARY | 2025-04-16 16:09 | XMS_ITS | Encounter Summary ---
[facility] Address [address] [place] [address] Care Team Providers Care Plastic Parts Fabricator Trimmer Name Role Phone Joey Lora MD Primary Care Provider [phone] Encounter Details Date Type Department Care Team (Latest Contact Info) Description 02/17/2025 Travel Social History Tobacco Use Types Packs/Day [...] Description 10/06/2025 3:15 PM EDT Office Visit [facility] [address] [facility] [address] [place] [phone] Charley Kim S, PROFESSIONAL DEVELOPMENT DIRECTOR [address] [place] [address] documented as of this encounter Visit Diagnoses Not on filedocumented in this encounter Care Teams Plastic Parts Fabricator Trimmer Relationship Specialty Start Date End Date Joey Lora MD [address] [facility] [address] [facility] [address] [place] [address] PCP - General Family Medicine 02/06/25 documented as of this encounter
--- OUTSIDE RECORDS SUMMARY | 2025-04-16 16:10 | XMS_ITS | Patient Health Record ---
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 Gr. >=1.030 Ketone Neg Bili Neg Gluc Neg xultrasound : thyroid Reviewed date:10/03/2024 12:49:56 PM Interpretation:stable, no f/u recommended Performing Lab: Notes/Report: stable, no f/u recommended P-TSH Receptor Binding Antib joleen Reviewed date:09/25/2024 12:38:30 PM Interpretation:Normal Performing Lab: Notes/Report: CLIA: [id number] Kosta Tucker MD, Case Management Associate [address] [place] [address] , [address], [place] [address] Test performed by [facility] TSH Receptor Binding Antibody <1.1 <1.76 IU/L P-Levetiracetam Reviewed date:09/26/2024 04:51:08 PM Interpretation:Low normal Performing Lab: Notes/Report: Levetiracetam 10 10-40 ug/mL INTERPRETIVE INFORMATION: Keppra (Levetiracetam) Therapeutic Range: 10-40 ug/mL Toxic: Not well Established Pharmacokinetics of levetiracetam are affected by renal function. Adverse effects may include somnolence, weakness, headache and vomiting. This levetiracetam (Keppra) immunoassay uses the [employer] reagents, which has known cross-reactivity with the drug brivaracetam (Briviact) and may report inaccurate results. Patients transitioning from levetiracetam to brivaracetam or those who are using both medications should not monitor drug concentrations with the [employer] assay. These patients should be monitored using a validated chromatographic methodology that distinguishes between drugs to determine drug concentrations. Performed By: [facility] [address] [place] [id number] Case Management Associate: Darnell Mojica MD, PhD CLIA Number: [id number] P-Comprehensive Metabolic Pa carlton (CMP) Reviewed date:09/25/2024 12:38:30 PM Interpretation:Normal Performing Lab: Notes/Report: Test performed by [facility] [place] [address] [place] [address] , [address], [place] [address] Kosta Tucker MD, Case Management Associate CLIA: [id number] Sodium 138 135-145 mmol/L Potassium 4.2 3.5-5.3 [...] Interpretation:Normal Performing Lab: Notes/Report: Test performed by [facility] [place] [address] [place] [address] [address], [place] [address] Kosta Tucker MD, Case Management Associate CLIA: [id number] Thyroglobulin Antibody 18.2 <10-115.0 IU/mL The test is performed by the [employer] ECLIA methodology. Values obtained with different assay methods or kits cannot be directly compared. P-Thyroid Peroxidase Antibod y Reviewed date:09/25/2024 12:38:30 PM Interpretation:Normal Performing Lab: Notes/Report: Test performed by [facility] [address] [place] [address] [address], [place] [address] Kosta Tucker MD, Case Management Associate CLIA: [id number] Thyroid Peroxidase Antibody 12 <9-34 IU/mL An elevated Thyroid Peroxidase Antibody should not be used alone to make the diagnosis of autoimmune thyroid disease. A result of <34 IU/mL does not definitively rule out the possibility of autoimmune thyroid disease. CBC Venipuncture (in house) Reviewed date:09/29/2024 05:34:39 PM Interpretation:not performed, see 09/24/2024 Performing Lab: Notes/Report: not performed, see 09/24/2024 CBC Venipuncture (in house) Reviewed date:01/09/2025 08:07:12 [...] - 38 platlet 279 100 - 400 CBC Fingerstick (in house) Reviewed date:09/10/2024 12:35:06 [...] - 38 plat 245 100 - 400 P-Levetiracetam Reviewed date:01/13/2025 08:55:27 AM Interpretation:9.5 Performing Lab: Notes/Report: Levetiracetam 9.5 10.0-40.0 ug/mL INTERPRETIVE INFORMATION: Keppra (Levetiracetam) Therapeutic Range: 10-40 ug/mL Toxic: Not well Established Pharmacokinetics of levetiracetam are affected by renal function. Adverse effects may include somnolence, weakness, headache and vomiting. This levetiracetam (Keppra) immunoassay uses the [employer] reagents, which has known cross-reactivity with the drug brivaracetam (Briviact) and may report inaccurate results. Patients transitioning from levetiracetam to brivaracetam or those who are using both medications should not monitor drug concentrations with the [employer] assay. These patients should be monitored using a validated chromatographic methodology that distinguishes between drugs to determine drug concentrations. Performed By: [facility] [address] [place] [address] Case Management Associate: Darnell Mojica MD, PhD CLIA Number: [id number] CBC Fingerstick (in house) Reviewed date:10/30/2024 10:23:00 [...] - 38 plat 266 100 - 400 CBC Fingerstick (in house) [...] 38 plat 202 100 - 400 CBC Fingerstick (in house) Reviewed date:09/25/2024 12:38:30 PM Interpretation:Normal Performing Lab: Notes/Report: Normal wbc 8.5 3.5 - 10 lym 28.2% 15 - 50 mid 6.1% 2 - 15 gran 65.7% 35 - 80 rbc 4.11 3.5 - 5.5 hgb 14.4 11.5 - 16.5 hct 39.8 35 - 55 mcv 96.6 75 - 100 mch 34.9 25 - 35 [facility] 36.1 31 - 38 plat 216 100 - 400 Reason For Referral Diagnosis 1 Thyromegaly (E04.9) Diagnosis 2 Thyroiditis, chronic (E06.5) [facility] Referring Provider First Name Joey Referring Provider Last Name Geno Referring Provider [facility] leonel Referred Provider Dwayne Goins Referred Provider Specialty Endocrinolog y General Notes Fernanda Moses 2024 09:54:47 AM > faxed to [facility] Endocrinology Referral Priority Routine Reason Cardiology at [facility] Diagnosis 1 Sinus tachycardia (R 00.0) Diagnosis 2 PFO (patent foramen ovale) (Q21.12) Diagnosis 3 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 Referred Provider Specialty Cardiovascul ar Disease General Notes Fernanda Moses 2024 09:57:15 AM > faxed to [facility] Cardiology Referral Priority Routine Medications Medication SIG (Take, Route, Frequency, Duration) Notes Start Date End Date Status Escitalopram Oxalate 10 MG 1 tablet Oral ly Once a day 02/24/2025 Active Fluticasone Propionate 50 MCG/ACT 1 spray(s) in each nostril Two times a day 07/29/2021 Active Norgestimate-Eth Estradiol 0.25-35 MG-MCG TAKE 1 TABLET BY MOUTH DAILY; Duration: 84 Active Astepro 205.5 MCG/SPRAY 2 sprays (1 spra y in each nostril) Nasally Twice a day; Duration: 30 day(s) 03/17/2025 Active Benefiber - as directed orally 2 times a day OTC 09/30/2021 Active Folic Acid 1 MGM 1 TAB QD; Duration: 30 DAYS Active Vitamin B12 1000 MCG 1 tablet Orally Onc e a day Active Magnesium 400 MG as directed Orally Active SUMAtriptan Succinate 100 MG 1 tablet [...] Vaccine Route Administration Date Status Comme nts xGardasil IM Intramuscular 05/13/2013 Administered xFluzone (6mos and older)-trivalent IM Intramuscular 04/09/2012 Administered xFluzone (6mos and older)-trivalent IM Intramuscular 05/13/2013 Administered xFlumist (intranasally age 2yr-49yr)-trivalent NS Nasal 04/17/2014 Administered xFlu shot-36 months and older IM Intramuscular 04/16/2008 Administered xFlu shot-36 months and older IM Intramuscular 04/20/2009 Administered xFlu shot-36 months and older IM Intramuscular 03/24/2010 Administered Varivax SC Subcutaneous 05/13/2013 Administered tuberculin (ppd) ID Intradermal 09/14/2020 Administered Tetanus Tdap-Adacel (over 7yrs) IM Intramuscular 05/13/2013 Administered ppd ID Intradermal 07/25/2023 Administered Menactra IM Intramuscular 05/13/2013 Administered Menactra IM Intramuscular 07/25/2018 Administered Hep A- Pediatric IM Intramuscular 07/04/2017 Administered Hep A- Pediatric IM Intramuscular 01/08/2018 Administered H1N1 flu vaccine IM Intramuscular 05/18/2009 Administered Gardasil 9 IM Intramuscular 07/04/2017 Administered Gardasil 9 IM Intramuscular 09/22/2017 Administered Gardasil 9 IM Intramuscular 01/08/2018 Administered Fluzone Quad (6months&older) IM Intramuscular 04/14/2015 Administered Fluzone Quad (6months&older) IM Intramuscular 03/22/2016 Administered Fluzone Quad (6months&older) IM Intramuscular 03/11/2017 Administered Fluzone Quad (6months&older) IM Intramuscular 04/04/2018 Administered Given by MP Fluzone Quad (6months&older) IM Intramuscular 04/05/2019 Administered Fluzone Quad (6months&older) IM Intramuscular 04/01/2020 Administered Fluzone Quad (6months&older) IM Intramuscular 05/02/2022 Administered Fluzone Quad (6months&older) IM Intramuscular 03/27/2023 Administered Fluzone Quad (6months&older) IM Intramuscular 02/24/2025 Administered COVID 19 Pfizer Unknown 09/19/2020 Administered COVID 19 Pfizer Unknown 10/10/2020 Administered Problems Problem Type SNOMED Code ICD Code Onset Dates Problem Status W/U Status Risk Notes Problem Attention deficit hyperactivity disorder, combined type (00421932) Attention deficit hyperactivity disorder, combined 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.01) Active confirmed Problem Otitis externa (5645845) Otitis externa (H60.90) Active confirmed Problem Hyperthyroidism (12489711) Hyperthyroidism (E05.90) Active confirmed Problem BMI 30+ - obesity (681598552) BMI 32.0-32.9,adult (Z68.32) Active confirmed Problem Thyromegaly (5579593) Thyromegaly (E04.9) Active confirmed Problem Seizure disorder (141870514) Seizure disorder (G40.909) Active confirmed Problem Adjustment disorder with mixed anxiety and depressed mood (545023226) Adjustment disorder with mixed anxiety and depressed mood (F43.23) Active confirmed Problem ADHD - Attention deficit disorder with hyperactivity (088048476) Attention deficit disorder with hyperactivity (F90.9) Active confirmed Problem Constipation (36806870) Constipation, unspecified constipation type (K59.00) Active confirmed Problem Pain in coccyx (finding) (28783727) Coccygeal pain (M53.3) Active confirmed Problem Thyromegaly (9434307) Thyromegaly (E01.0) Active confirmed Problem Allergic rhinitis (28061014) Allergic rhinitis, unspecified seasonality, unspecified trigger (J30.9) Active confirmed Problem Chronic thyroiditis (00795428) Chronic thyroiditis (E06.5) Active confirmed Problem Chronic thyroiditis (50047327) Thyroiditis, chronic (E06.5) Active confirmed Vital Signs Heart Rate 102 /min 03/17/2025 Blood pressure diastolic 72 mm Hg 03/17/2025 Height 67.25 in 03/17/2025 Blood pressure systolic 110 mm Hg 03/17/2025 Weight 201 lbs 03/17/2025 BMI 31.24 kg/m2 03/17/2025 Encounters Encounter Location Date Provider Diagnosis [facility] [address] [place], [place] [id number] 06/03/2024 Joey Tucson Pelvic pain R10.2 an d Coccygeal pain M53.3 [facility] [address] [place], [place] [id number] 06/11/2024 R Eladio Estrellat Hyperthyroidism E05. 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 Z79.899 and BMI 32.0-32.9,adult Z68.32 [facility] [address] [place], [place] [id number] 09/24/2024 Ojey Tucson Acute upper respirat ory infection, unspecified J06.9 [facility] [address] [place] [id number] 10/30/2024 Lanny Crowdy Acute URI J06.9 [facility] [address] [place] [id number] 01/08/2025 Joey Tucson Acute URI J06.9 ; Seizure disorder G40.909 and exterminator helper termite use of drug Z79.899 [facility] [address] [place] [id number] 02/03/2025 Joey Tucson Frequent headaches R 51.9 ; Blurry vision H53.8 ; Chronic thyroiditis E06.5 ; Sinus tachycardia R00.0 ; AP window (aortopulmonary window) Q21.4 and PFO (patent foramen ovale) Q21.12 [facility] [address] [place] [id number] 02/24/2025 Joey Tucson Adjustment disorder with mixed anxiety and depressed mood F43.23 and Encounter for immunization Z23 [facility] [address] [place] [id number] 03/17/2025 Joey Tucson Dysfunction of Eustachian tube, unspecified laterality H69.90 and Adjustment disorder with mixed anxiety and depressed mood F43.23 [facility] [address] [place] [id number] 09/16/2024 Joey Tucson [facility] [address] [place] [id number] 09/23/2024 Joey Tucson [facility] [address] [place] [id number] 10/03/2024 Joey Tucson [facility] [address] [place] [id number] 01/13/2025 Joey Tucson [facility] [address] [place] [id number] 01/16/2025 Joey Tucson [facility] [address] [place] [id number] 01/30/2025 Joey Tucson [facility] [address] [place] [id number] 02/11/2025 Joey Tucson [facility] [address] [place] [id number] 08/14/2024 Joey Tucson [facility] [address] [place] [id number] 08/15/2024 Joey Tucson [facility] [address] [place] [id number] 08/21/2024 Joey Lora Assessments Encounter Date Diagnosis (ICD Code) Assessment Notes Treatment Notes Treatment Clinical Notes Section Notes 02/24/2025 Adjustment disorder with mixed anxiety and depressed mood (ICD-10 - F43.23) 02/24/2025 Encounter for immunization (ICD-10 - Z23) 03/17/2025 Adjustment disorder with mixed anxiety and depressed mood (ICD-10 - F43.23) 03/17/2025 Dysfunction of Eustachian tube, unspecified laterality (ICD-10 - H69.90) 06/11/2024 Hyperthyroidism (ICD-10 - E05.90) Start low-dose beta-umm for symptom management. Keep follow-up appoint with endocrinology in 06/03/2024 Pelvic pain (ICD-10 - R10.2) 06/03/2024 Coccygeal pain (ICD-10 - M53.3) Insurance is still denying to cover caudal epidural with pain management 09/09/2024 Acute URI (ICD-10 - J06.9) 09/09/2024 Chronic thyroiditis (ICD-10 - E06.5) 09/13/2024 Acute URI (ICD-10 - J06.9) 09/23/2024 Blurred vision (ICD-10 - H53.8) Patient could be having a migraine headache, call with any new symptoms 09/23/2024 Persistent cough (ICD-10 - R05.3) 10/30/2024 Acute URI (ICD-10 - J06.9) 01/08/2025 Seizure disorder (ICD-10 - G40.909) 01/08/2025 Acute URI (ICD-10 - J06.9) 02/03/2025 Blurry vision (ICD-10 - H53.8) 02/03/2025 Frequent headaches (ICD-10 - R51.9) IIH? [facility] 02/03/2025 Chronic thyroiditis (ICD-10 - E06.5) 01/08/2025 exterminator helper termite use of drug (ICD-10 - Z79.899) 09/23/2024 Chronic thyroiditis (ICD-10 - E06.5) 09/24/2024 Acute upper respiratory infection, unspecified (ICD-10 - J06.9) 09/23/2024 Thyromegaly (ICD-10 - E01.0) 02/03/2025 Sinus tachycardia (ICD-10 - R00.0) Cardiology at [facility] 02/03/2025 AP window (aortopulmonary window) (ICD-10 - Q21.4) 09/23/2024 exterminator helper termite 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 (ICD-10 - Z79.899) 09/23/2024 BMI 32.0-32.9,adult (ICD-10 - Z68.32) 02/03/2025 PFO (patent foramen ovale) (ICD-10 - Q21.12) 02/03/2025 Other Plan Of Treatment Next Appt Details Provider Name:Joey Stauffer , 06/16/2025 04:15:00 PM, [address], [place], [place], [id number], Insurance Providers Payer Name Payer Address Payer Phone Subscriber Number Group Number Insured Name Patient Relationship to Insured Coverage Start Date Coverage End Date [employer]EREMY [employer] [address] [place] [address] [id number] Chaya Mandujano Self - patient is the insured Medical (General) History 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 History ICD Code Seizures ADHD-Hyperactive/Impulsive Cardiac Murmur hyperthyroidism - followed by endo Surgical History Surgery Date(Month/Year) Hospitalization History Reason Date(Month/Year) [facility] ER - Extreme Fatigue 03/03/2024 LT Foot Tendon Tear- Sports Medicine 03/21/2017 Tegretol Toxicity 08/2008
--- OUTSIDE RECORDS SUMMARY | 2025-04-16 16:10 | XMS_ITS | Encounter Summary ---
Author Organization Healthcare Address [address] [place] [address] Care Team Providers Care Overlock Elastic Attacher Name Role Phone Joey Lora MD Primary Care Provider [phone] Encounter Details Date Type Department Care Team (Late st Contact Info) Description 01/14/2025 Results Follow-Up Javiwyk[facility] Lenoir[facility] Endocr[facility] [address] [place] [address] Tapan Ybarra MD [address] [facility] [address] [place] [address] Social History Tobacco Use Types Packs/Day [...] on file documented as of this encounter Functional Status * Calculated C-SSRS Risk Score (Lifetime/Recent) Answer Date of Assessment Author No Risk Indicated 02/14/2025 2:01 PM EDT Phuong Soto RN * Question Answer Date of Assessment Author 1. Wish to be (Past 1 Month) No 025 2:01 PM FAHEEMT Phuong Soto RN 2. Non-Specific Active Suici slim Thoughts (Past 1 Month) No 02/14/2025 2:01 PM EDT Yanely Soto RN 6. Suicidal Behavior (Lifetime) No 2:01 PM EDT Phuong Soto RN documented as of this encounter Plan of Treatment Upcoming Encounters Date Type Department Care Team (Late st Contact Info) Description 07/15/2025 10:30 AM EST Office Visit [place] [facility] [address] [place] [address] Marie Steinberg MD [address] [place] [address] documented as of this encounter Visit Diagnoses Not on filedocumented in this encounter Additional Health Concerns Assessment Noted Time A fall risk assessment has been complete d for the patient 03/18/2024 8:02 AM EDT A Body Mass Index follow-up plan has been documented for the patient 01/14/2025 10:04 AM EDT documented as of this encounter Care Teams Overlock Elastic Attacher Relationship Specialty Start Date End Date Joey Lora MD [address] [facility] [address] [place] [address] PCP - General 10/23/20 documented as of this encounter
--- OUTSIDE RECORDS SUMMARY | 2025-04-16 16:11 | XMS_ITS | Data Portability ---
Author Organization [facility] Address [address] [place] [address] Assessment Encounter Date Assessment Date Assessment LastModified [...] By Organization Details Last Modified Time 03/06/2025 [id number] back pain: care instructions abux Not available 03/06/2025 22:05:27 learning about relief for back pain abux Not available 03/06/2025 22:05:27 Reason for Referral None Reported. Problems Name Problem SNOMED Code Status Onset Date Resolution Date Notes Provider Name and Address Organization Details Recorded Time Injury of coccyx 284366401 Active 2024 Jacob Romero MD [address], [address], [place] [facility] 22:05:22 Pain in coccyx 28041777 Active 2024 Jacob Romero MD [address], [address], [place] [facility] 22:05:23 Degeneration of lumbar intervertebral disc 97231452 Active 2024 Jacob Romero MD [address], [address], [place] [facility] 22:05:25 Lumbar radiculopathy 441590834 Active 2024 Jacob Romero MD [address], [address], [place] [facility] 22:05:26 Problem Notes None recorded. Procedures Surgical History Date Name Laterality Status Provider Name and Address Organization Details Recorded Time Caudal Epidural Steroid Injection Under Fluoroscopy completed Jacob Romero MD [address] [facility],[address], [address], [place] - [facility] 03/06/2025 22:04:05 Imaging Results None recorded. Procedure Notes None recorded. Medical Equipment None Reported. Allergies Allergen ID Allergen Name Allergen Category Reaction Reaction Severity Criticality Documentation Date Start Date Code Code System Note Provider Name and Address Organization Details Recorded Time 7981 methimazo le medicatio n Not available Not available Not available 02/28/2025 6835 RxNorm ACRLOS ARGUETA [facility], [place] - [facility] 11:05:37 Medications [...] and Address Organization Details Last Updated DateTime 165.1 cm 88 /min 18 /min 34.1 kg/m2 45290.4 4 g 98 % 98 % 128/84 [...] COVID-19 While That Case Was Ill? No [email or web address] Information n ot available 02/28/2025 In The 14 Days Before Symptom Onset, Have You Had Close Contact With A Person Who Is Under Investigation For COVID-19 While That Person Was Ill? No [email or web address] Information not available 02/28/2025 Have You Been To An Area Known To Be High Risk For COVID-19? No Information not available 02/28/2025 Sex: Unknown Functional Status Question Answer Note LastModified by Organizat ion Details LastModified Time Do you use any illicit or recreational drugs? No [email or web address] Information not available 02/28/2025 Do you or have you ever used any other forms of tobacco or nicotine? No [email or web address] Information not available 02/28/2025 What is your level of alcohol consumption? None [email or web address] Information not available 02/28/2025 Mental Status None recorded. Family History Nothing Reported. 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 Condition Response Coronary Artery Disease N Gout N Head Trauma/Injury N Hernia N Thyroid Problems N Depression N COPD N Anemia N Ulcers N Heart Attack (DC) N Diabetes N Anxiety Disorder N Bleeding Disorder N Arthritis N Tuberculosis N AIDS/HIV N Acid Reflux (GERD) N Cancer N Stroke N Asthma N Substance Abuse N Back Injury N High Cholesterol N Hepatitis N Liver Disease N Heart Disease N Fibromyalgia N Headaches N Hypertension N Osteoporosis N Kidney Disease N Gynecological HistoryNo gynecological history recorded. Obstetrics History GPAL:G 0 P 0 0 0 0 Past Encounters Encounter ID Performer Location Encounter Start Date Encounter Closed Date Diagnosis/Indication Diagnosis SNOMED-CT Code Diagnosis ICD10 Code Diagnosis IMO Codes Diagnosis Note [id number] Jacob Romero MD [address] [place] [address] 03/06/2025 14:26:44 03/06/2025 16:23:58 Injury of coccyx 139470952 S39.92XA 3949766 Pain in coccyx 43955533 M53.3 38963 Degenerati on of lumbar intervertebral disc 78198034 M51.362 7516557686 Lumbar radiculopathy 128 647878 M54.16 31624 Health Concerns Section Related Observation LastModified by Organization Detai ls LastModified Time None Recorded Concern Status LastModified by Organization Details LastModified Time None Recorded Advance Directives Directive None Recorded Payers Insurance Date Sequence Insurance Name Policy Number Policy Henry Covered Member ID Henry Member ID Guarantor Name 03/03/2025 2 [employer] [id number] Marii Mandujano [id number] Chaya Mandujano 03/03/2025 1 [place] [id number] W Caryn Bhagat [id number] Chaya Mandujano Notes Date Note Type [...] to back. Jacob Romero MD [address], [address], [facility] 03/06/2025 22:06:09 OBGyn Episode No OBEpisode recorded.
--- OUTSIDE RECORDS SUMMARY | 2025-04-16 16:11 | XMS_ITS | Encounter Summary ---
Author Organization Healthcare Address [address] [place] [address] Care Team Providers Care Plastic Surgery Coordinator Name Role Phone Joey Lora MD Primary Care Provider [phone] Encounter Details Date Type Department Care Team (Late st Contact Info) Description 02/11/2025 Telephone [place] [facility] [address] [place] [address] Marie Steinberg MD [address] [place] [address] Social History Tobacco Use Types [...] Month) No 025 2:01 PM FAHEEMT Phuong Soto, RN 2. Non-Specific Active Suici slim Thoughts (Past 1 Month) No 02/14/2025 2:01 PM EDT Yanely Soto RN 6. Suicidal Behavior (Lifetime) No 2:01 PM EDT Phuong Soto, RN documented as of this encounter Miscellaneous Notes * Telephone Encounter - Nick Thao - 02/20/2025 8:43 [address] EDT Good [address] Dr. Steinberg- Brandi called and spoke with patient and got her scheduled on 07/15/25 at 10:30 AM and added her onto the Waitlist in case of any cancellations. Thanks! * Telephone Encounter - Neelam Alexandra APRN - 02/11/2025 9:35 AM EDT I have never seen this patient, please advise to postpone peer to peer till Dr. Steinberg is back to office. * Telephone Encounter - Norma Mejias - 02/11/2025 8:53 AM EDT Patient Phone Message Reason for Call: Dr. Lora in [place] is requesting a peer to peer with Dr. Steinberg on this patient Best contact number and optimal time of day to reach caller: [phone] [facility] Note: Please do not reply to this [...] Visit [place] [facility] [address] [place] [address] Marie Steinberg MD [address] [place] [address] documented as of this encounter Visit Diagnoses Not on filedocumented in this encounter Additional Health Concerns Assessment Noted Time A fall risk assessment has been complete d for the patient 03/18/2024 8:02 AM EDT A Body Mass Index follow-up plan has been documented for the patient 01/14/2025 10:04 AM EDT documented as of this encounter Care Teams Plastic Surgery Coordinator Relationship Specialty Start Date End Date Joey Lora MD [address] [place] [address] [place] [address] PCP - General 10/23/20 documented as of this encounter
[2025-04-16 19:10] LABS: Free T4 (Free Thyroxine) 1.08 ng/dl (0.78-2.19)
[2025-04-16 19:29] LABS: Thyroid Stimulating Hormone 0.52 uIU/mL (0.465-4.68)
== END 2025-04-16 23:59 | disposition home or self-care (01) ==
LOC: LAB 16:07
PROVIDERS: PCP Family Medicine; Visit Provider Student in an Organized Health Care Education/Training Program
DX: R79.89 Other specified abnormal findings of blood chemistry (principal)
CPT/HCPCS: 36415; 84439; 84443